=== PATIENT | male | born 1960 ===

== ENCOUNTER 2020-06-15 11:51 | Outpatient (REF) | payer OTHER, SELFPAY | END 2020-06-15 11:52 | disposition home or self-care (01) | LOC: HO.LAB 11:51 | PROVIDERS: Visit Provider Internal Medicine | DX: Z20.822 Contact with and (suspected) exposure to COVID-19 (principal) | CPT/HCPCS: 36415; C9803; U0003; U0005 ==

== ENCOUNTER 2022-07-12 08:20 | Emergency (ER) | payer OTHER, SELFPAY ==
--- NOTE | ~2022-07-12 | XR_ITS ---
EXAMINATION: XR CHEST CLINICAL INFORMATION: Chest pain COMPARISON: 01/22/2015 TECHNIQUE: 2 views of the chest were obtained. FINDINGS: No significant abnormality is noted involving the heart, lungs, mediastinum, bony thorax or soft tissues. XR/XR chest 2V IMPRESSION: Unremarkable examination.
--- NOTE | ~2022-07-12 | CT_ITS ---
EXAMINATION: CT HEAD WITHOUT CONTRAST CLINICAL INFORMATION: Headache COMPARISON: 04/28/2014 TECHNIQUE: Contiguous axial imaging was performed from the skull base to vertex without intravenous administration of contrast. This CT examination was performed using dose optimization techniques as appropriate, variously including the following: *Automated exposure control *Adjustment of mA and/or kV according to patient size (this includes techniques or standardized protocols for targeted exams where dose is matched to indication/reason for exam; i.e. extremities or head) *Use of iterative reconstruction technique DLP: 652 mGy-cm FINDINGS: There is no midline shift. There is no mass effect. There is no hemorrhage. The basal cisterns appear patent. The posterior fossa is grossly within normal limits. There is no extra-axial collection. The kim-white matter is fairly well-preserved. Review of the bone windows does demonstrate suspicious finding. Some mild opacification of left mastoid air cells CT/CT head/brain wo IV con IMPRESSION: Negative acute noncontrast CT of the brain. Some possible mastoid air cell disease on the left
[2022-07-12 08:38] VITALS: BP 154/88; PULSE 85; RESP 16; TEMP 36.8; O2SAT 98; BMI 24.2
--- NOTE | 2022-07-12 08:53 | PC.NURSE ---
61 y/o M pw intermittent headache for a few months. pt states that 3 days ago he lost his vision for a few seconds and then it returned. he states that the headache has been worsening over time and is beginning to radiate to his neck and face. neuros are intact. PERRL. ROADWAY DESIGNER made aware of patient and symptoms and at bedside to assess. pt also states that he has had increased stress d/t his being in the ICU at [facility]. pt is AOX3, VSS at this time. pt in gown, on monitor.
--- NOTE | 2022-07-12 09:07 | ED_ITS ---
HPI - Headache General Chief Complaint: Headache Stated Complaint: Headache/Eye pain Time Seen by Provider: 07/12/22 08:46 Source: patient and university registrar Mode of arrival: ambulatory Limitations: no limitations and language barrier History of Present Illness HPI Narrative: Patient is a 61-year-old male with a history of CAD, diabetes and asthma, cc occipital right-sided headache that started this morning around 0800. It radiates to the right side of the neck and to the right shoulder and is accompanied by nausea, slighty blurry vision in the left eye and midsternal chest discomfort. He states that last night around 1999 he started with sharp pain to the left eye that radiated to the back of the head for about 3 secs and resolved. He also said that his vision went black for a couple of seconds in the left eye which has resolved but feels the vision in that eye is a bit blurry still. He denies recent trauma, speech difficulty, unilateral weakness,loc, vomiting, photosensitivity, confusion, sob, fever, or abd pain. He explained that his has been in the ICU and just got out yesterday and has been under a lot stress. MD elicited complaint: headache Onset (ago): hour(s) Time: 06:00 Onset description: suddenly and while at rest Location: right and occipital Severity: moderate Quality & Timing: throbbing, sharp and pain radiation Exacerbating factors: none Relieving factors: nothing Associated symptoms: nausea and vision loss Treatments prior to arrival: none Related Data Previous Rx's Medication Instructions Recorded gabapentin 100 mg capsule 100 mg PO BEDTIME 90 days #90 caps 09/07/21 bisacodyl 5 mg tablet,delayed 10 mg PO ONCE 1 day #2 tabs 01/26/22 release (Dulcolax (bisacodyl)) blood-glucose meter (FreeStyle #1 ea 01/30/22 Lite Meter kit) blood sugar diagnostic (FreeStyle #50 ea 02/09/22 Test strips) metoprolol succinate 25 mg 25 mg PO DAILY #30 tabs 02/09/22 tablet,extended release 24 hr albuterol sulfate 90 mcg/actuation 2 inh inhalation Q6H PRN shortness 07/06/22 breath activated powder inhaler of breath or wheezing 30 days #1 ea (ProAir RespiClick) fluticasone propionate 115 2 puff inhalation BID 30 days #8 07/06/22 mcg-salmeterol 21 mcg/actuation grams HFA inhaler (Advair HFA) metformin 1,000 mg tablet 1,000 mg PO BID #60 tabs 07/06/22 Allergies Allergy/AdvReac Type Severity Reaction Status Date / Time Penicillins [PENICILLINS] Allergy Unknown UNKNOWN Verified 07/12/22 08:38 shrimp Allergy Unknown UNKNOWN Verified 07/12/22 08:38 Review of Systems Review of Systems: Yes all other systems are reviewed and are negative Constitutional: Constitutional: Denies body ache(s), Denies chills, Denies fever(s), Reports headache(s) and Denies weakness Eyes: Eyes: Reports blurry vision, Reports change in vision, Reports loss of vision (left eye, seconds, last night around 1999), Reports requires corrective lenses, Denies seeing flashes and Denies photophobia ENT: Reports system reviewed and no additional complaints, except as documented, Denies dizziness, Reports headache(s), Denies nasal congestion, Denies nasal discharge and Denies neck pain Cardiovascular: Cardiovascular: Reports chest pain (midsternal), Denies leg edema and Denies dyspnea Respiratory: Respiratory: Reports no additional respiratory complaints, Denies cough and Denies dyspnea Gastrointestinal: Gastrointestinal: Denies abdominal pain, Denies diarrhea, Reports nausea and Denies vomiting Genitourinary: Genitourinary: Denies urinary incontinence Musculoskeletal: Musculoskeletal: Reports no additional musculoskeletal complaints, Denies back pain, Denies arthralgias, Denies joint swelling, Denies neck pain, Denies numbness and Denies tingling Integumentary/Breasts: Skin/Breast: Reports system reviewed and no additional complaints, except as docu and Denies rash Neurologic: Reports system reviewed and no additional complaints, except as documented, Denies Abnormal speech present, Denies dizziness, Reports headache (s), Denies lack of coordination, Reports loss of vision (left eye, seconds, last night around 1999), Denies numbness, Denies tingling and Denies weakness PMFSH Past Medical History Attestation statement: The following information was validated with the patient. Source: old records reviewed and nursing notes reviewed Medical History CAD (coronary artery disease) Diabetes mellitus Mild persistent asthma Poison jorge Surgical History Ear anomaly H/O angioplasty History of lumbar laminectomy S/P correction of deviated nasal septum Family History Family History Mother Asthma Father COVID-19 Social History Social History Housing: Apartment Alcohol intake: former Patient Tobacco Use Status: Never used Tobacco e-Cigarette/Vaping Use: Never Used Second Hand Smoke Exposure: No Advance Directives: No Advance Directives Information Provided: Yes service: No Current occupational status: disabled Cognitive needs: No Hearing needs: No Vision needs: No Physical Exam Vital Signs: Vital Signs: Last Vital Signs Temp 98.2 F 07/12/22 08:38 Pulse 68 07/12/22 12:01 Resp 14 07/12/22 12:01 BP 137/74 07/12/22 12:01 Pulse Ox 99 07/12/22 12:01 O2 Del Method 07/12/22 12:01 BMI result Body Mass Index 24.2 Const: General: cooperative, healthy appearing, comfortable and no acute distress Orientation/consciousness: patient oriented x3 Limitations: no limitations HEENT: Head: Yes normal to inspection and No Temporal artery tenderness present Ears: hearing grossly normal bilaterally and TM's normal bilaterally General nose exam: Normal external nose present Face and sinus: Yes normal facial exam Mouth: Normal oral and palatal mucosa present Throat: Yes posterior oropharynx normal Eyes: Other: IOP 12 bilaterally see charted visual acuity-corrected bilaterally was 20/50 General: appearance normal, both eyes and all related structures Visual Nina: normal visual nina by confrontation Alignment and Position: alignment normal Periorbital: periorbital findings normal Eyelids: Yes eyelids normal Conjunctivae: conjunctivae normal Sclerae: sclerae normal Corneas: corneas normal and fluorescein used (no abrasion or FB) Pupils: Equal, round and reactive pupils present EOM: EOMs intact bilaterally Direct Ophthalmoscopy: normal light reflex, no photophobia and No photophobia Neck: Other: Tenderness on palpation over the right occipit and soft tissue of right neck with no thrill or bruit. no swelling Neck: Yes normal visual inspection, Yes full ROM, Yes no lymphadenopathy and Yes no meningeal signs Chest: Chest palpation & inspection: normal inspection of the chest and normal palpation of entire chest wall Resp: Effort & Inspection: normal respiratory effort Auscultation: clear to auscultation bilaterally Cardio: Rate: regular rate Rhythm: regular rhythm Peripheral pulses: Peripheral pulses 2+ throughout GI: Inspection: Yes normal to inspection Palpation (GI): Soft to palpation and nontender Auscultation: normal bowel sounds Back/Spine/Pelvis: Thoracic/Lumbar Spine: thoracic and lumbar spine normal to inspection Skin: General skin exam: no rashes or lesions noted Neuro: General: patient oriented x3, moves all extremities, no meningeal signs, no focal motor deficits, normal sensation to monofilament and Unable to assess gait Cranial nerves: Yes CN's II-XII intact bilaterally, Yes Equal, round and reactive pupils present, Yes Bilaterally intact EOM present, Yes Nystagmus not present, Yes Normal facial strength present, Yes Midline tongue present and Yes Ability to bilaterally rotate head present Cognition (Neuro): normal cognition Speech: No Abnormal speech present Gait exam (Neuro): Unable to assess gait Motor exam (neuro): 5/5 motor strength present throughout Sensory Exam: Normal double simultaneous stimulation for sensation Pupils: Normal pupillary reactivity/response: bilateral Extrem: General: Yes normal to inspection, Yes no pedal edema and Yes no calf tenderness Medications Administered Discontinued Medications Generic Name Dose Route Start Last Admin Trade Name Freq PRN Reason Stop Dose Admin Fluorescein Sodium 1 strip 07/12/22 10:02 07/12/22 10:24 Fluorescein Sodium Strip EYE-LEFT 07/12/22 10:03 1 strip ONCE ONE Administration Tetracaine HCl 1 drop 07/12/22 10:02 07/12/22 10:24 Tetracaine Hcl/Pf 0.5% Oph Nancy 4 Ml Drops EYE-LEFT 07/12/22 10:03 1 drop ONCE ONE Administration Medical Decision Making Medical Decision Making [facility] Narrative: Pt is a 61 y/o male presenting with complaints of brief vision loss yesterday now with residual blurriness, right sided headache/neck pain, and chest pain. 1. Visual changes-Transient vision loss for 3 seconds yesterday now with reported residual blurriness in left eye. Low concern for retinal detachment, optic nerve impingment, retinopathy, or glaucoma. Visual acuity exam shows corrected eyes 20/50. See eye exam documented. No corneal abrasion/FB, w/ normal IOP and normal visual nina. Advised to follow-up with sales and marketing associate for more thorough examination (has been seen by Matheus in the past). 2: Headache- this patient presents with headache most consistent with tension migraine vs musculoskeletal pain. Normal neuro exam with no focal deficits. Differential diagnosis includes migraine versus tension type headache, less likely meningitis/CARE MANAGEMENT ASSOCIATE infection (no fever, meningeal signs), SAH (no sudden onset SARAH), temporal arteritis unlikely, as is acute angle glaucoma closure glaucoma. However, d/t age will obtain CT head, treat symtomatically. 3. Chest pain - patient presents with chest pain most likely secondary to stress. The differential diagnosis included PE (no clincial findings concerning for DVT, no hypoxia/tachypnea/tachycardia or risk factors), STEMI, NSTEMI (ACS less likely with flat troponin, unchanged EKG) pericarditis, myocarditis, thorac ic aortic dissection (less likely with gradial onset) pneumothorax, pneumonia or other acute infectious process. Will obtain EKG, labs and chest xray. Differential Diagnosis Differential Diagnoses: The differential diagnosis associated with the presentation includes see above Lab Data MDM Lab Attestation statement: I reviewed the patient's lab results. 07/12/22 10:16 07/12/22 10:16 Labs: Lab Results 07/12/22 07/12/22 07/12/22 Range/Units 10:16 10:16 10:16 WBC 3.5 L (4.8-10.8) X10*3/uL RBC 4.27 L (4.60-5.80) X10*6/uL Hgb 13.3 L (14.0-18.0) g/dl Hct 40.2 L (42.0-52.0) % MCV 94.1 (80.0-98.0) fL MCH 31.1 (27.0-33.0) pg MCHC 33.1 (31.0-36.0) g/dl RDW 12.7 (11.0-16.0) % Plt Count 260 (160-400) X10*3/uL MPV 10.0 (9.4-12.4) fL Immature Gran % (Auto) 0.3 (0.0-0.4) % Neut % (Auto) 54.7 (45-73) % Lymph % (Auto) 28.5 (20-40) % [place] % (Auto) 10.5 (2-11) % Eos % (Auto) 4.6 H (0-4) % Baso % (Auto) 1.4 (0-2) % Lymph # (Auto) 1.0 L (1.2-4.9) X10*3/uL [place] # (Auto) 0.4 (0.1-1.2) X10*3/uL Eos # (Auto) 0.2 (0.0-0.4) X10*3/uL Baso # (Auto) 0.1 (0.0-0.2) X10*3/uL Abs Immat Gran (auto) 0.01 (0.00-0.03) X10*3/uL Absolute Neuts (auto) 1.9 L (2.0-8.3) x10*3/uL Absolute Nucleated RBC 0.000 (0.0-0.012) X10*3/uL Nucleated RBC % (auto) 0.0 (0.0-0.2) /100WBC ESR 9 (0-15) MM/HR PT 11.5 (10.0-13.1) SEC INR 1.0 (0.9-1.1) Sodium (135-145) mmol/L Potassium (3.3-5.1) mmol/L Chloride (96-108) mmol/L Carbon Dioxide (22-29) mmol/L Anion Gap (12-20) BUN (9-16) mg/dL Creatinine (0.5-1.4) mg/dL Estim Creat Clear Calc Estimated GFR Random Glucose (60-115) mg/dL Calcium (8.4-10.2) mg/dL Magnesium (1.6-2.6) mg/dL Total Bilirubin (0.0-1.0) mg/dL Direct Bilirubin (0.0-0.5) mg/dL AST (5-37) U/L ALT (0-40) U/L Alkaline Phosphatase (39-117) U/L Troponin I High Sens (<3.5-35.0) ng/L C-Reactive Protein (< or = 0.50) mg/dL Total Protein (6.5-8.0) g/dL Albumin (3.5-5.0) g/dL COVID-19 (CHRISTOPHER) (Negative) COVID-19 Clin Com 07/12/22 07/12/22 07/12/22 Range/Units 10:16 10:16 10:16 WBC (4.8-10.8) X10*3/uL RBC (4.60-5.80) X10*6/uL Hgb (14.0-18.0) g/dl Hct (42.0-52.0) % MCV (80.0-98.0) fL MCH (27.0-33.0) pg MCHC (31.0-36.0) g/dl RDW (11.0-16.0) % Plt Count (160-400) X10*3/uL MPV (9.4-12.4) fL Immature Gran % (Auto) (0.0-0.4) % Neut % (Auto) (45-73) % Lymph % (Auto) (20-40) % [place] % (Auto) (2-11) % Eos % (Auto) (0-4) % Baso % (Auto) (0-2) % Lymph # (Auto) (1.2-4.9) X10*3/uL [place] # (Auto) (0.1-1.2) X10*3/uL Eos # (Auto) (0.0-0.4) X10*3/uL Baso # (Auto) (0.0-0.2) X10*3/uL Abs Immat Gran (auto) (0.00-0.03) X10*3/uL Absolute Neuts (auto) (2.0-8.3) x10*3/uL Absolute Nucleated RBC (0.0-0.012) X10*3/uL Nucleated RBC % (auto) (0.0-0.2) /100WBC ESR (0-15) MM/HR PT (10.0-13.1) SEC INR (0.9-1.1) Sodium 140 (135-145) mmol/L Potassium 4.4 (3.3-5.1) mmol/L Chloride 107 (96-108) mmol/L Carbon Dioxide 26 (22-29) mmol/L Anion Gap 11 L (12-20) BUN 16 (9-16) mg/dL Creatinine 1.00 (0.5-1.4) mg/dL Estim Creat Clear Calc 69.1 Estimated GFR > 60 Random Glucose 184 H (60-115) mg/dL Calcium 9.6 (8.4-10.2) mg/dL Magnesium 1.9 (1.6-2.6) mg/dL Total Bilirubin 0.4 (0.0-1.0) mg/dL Direct Bilirubin < 0.2 (0.0-0.5) mg/dL AST 27 (5-37) U/L ALT 39 (0-40) U/L Alkaline Phosphatase 55 (39-117) U/L Troponin I High Sens < 3.5 (<3.5-35.0) ng/L C-Reactive Protein 0.24 (< or = 0.50) mg/dL Total Protein 6.8 (6.5-8.0) g/dL Albumin 4.2 (3.5-5.0) g/dL COVID-19 (CHRISTOPHER) Negative (Negative) COVID-19 Clin Com See Note Independent Interpretation I performed an independent interpretation of an: EKG, Plain X-Ray and CT Scan Interpretation: I independently reviewed the chest x-ray and a CTA of the head and agree with the radiologist's report I independently reviewed the EKG which shows normal sinus rhythm with rate of 66, normal NV, normal QRS, normal QT, nonspecific ST changes seen on previous EKG January 2015 Radiology Impression Discussion of test interpretation with radiology: I have reviewed the radiologis t's reading. Radiologist Impression: [place] [id number] CT Scan Report Signed Patient: Marco Barrientos MR#: [id number] : 1960 Acct:[id number] Age/Sex: 61 / M ADM Date: 07/12/22 Loc: HO.ED Attending Dr: Ordering Physician: Melani Herrera NP Date of Service: 07/12/22 Procedure(s): CT head/brain wo IV con Accession Number(s): [id number] cc: Melani Herrera NP~ EXAMINATION: CT HEAD WITHOUT CONTRAST CLINICAL INFORMATION: Headache? COMPARISON: 04/28/2014 TECHNIQUE: Contiguous axial imaging was performed from the skull base to vertex without intravenous administration of contrast. This CT examination was performed using dose optimization techniques as appropriate, variously including the following: *Automated exposure control *Adjustment of mA and/or kV according to patient size (this includes techniques or standardized protocols for targeted exams where dose is matched to indication/reason for exam; i.e. extremities or head) *Use of iterative reconstruction technique DLP: 652 mGy-cm FINDINGS: There is no midline shift. There is no mass effect. There is no hemorrhage. The basal cisterns appear patent. The posterior fossa is grossly within normal limits. There is no extra-axial collection. The kim-white matter is fairly well-preserved. Review of the bone windows does demonstrate suspicious finding. Some mild opacification of left mastoid air cells ? CT/CT head/brain wo IV con IMPRESSION: Negative acute noncontrast CT of the brain. Some possible mastoid air cell disease on the left [place] [id number] XRay Report Signed Patient: Marco Barrientos MR#: [id number] : 1960 Acct:[id number] Age/Sex: 61 / M ADM Date: 07/12/22 Loc: .ED Attending Dr: Ordering Physician: Melani Herrera NP Date of Service: 07/12/22 Procedure(s): XR chest 2V Accession Number(s): [id number] cc: Melani Herrera NP~ EXAMINATION: XR CHEST CLINICAL INFORMATION: Chest pain COMPARISON: 01/22/2015 TECHNIQUE: 2 views of the chest were obtained. FINDINGS: No significant abnormality is noted involving the heart, lungs, mediastinum, bony thorax or soft tissues. XR/XR chest 2V IMPRESSION: Unremarkable examination. Discharge Plan Discharge Clinical Impression: Headache, Chest pain, Alteration in vision Patient Disposition: Home, Self-Care Instructions: Chest Pain (DC), Acute Headache (ED) Additional Instructions: Seguimiento con el Dr. Jarvis. Regrese por cualquier s?ntoma que empeore. Tus pruebas aqu? son muy tranquilizadoras. Prescriptions: No Action bisacodyl [Dulcolax (bisacodyl)] 5 mg tablet,delayed release (DR/EC) 10 mg PO ONCE 1 Days Qty: 2 0RF Rx Instructions: take orally as directed prior to colonoscopy (DME) blood-glucose meter [FreeStyle Lite Meter] Kit See Rx Instructions .Route Qty: 1 0RF Rx Instructions: As directed (DME) FreeStyle Test Strip See Rx Instructions .ROUTE .MEDSUPPLY Qty: 50 11RF Rx Instructions: As directed metoprolol succinate 25 mg tablet extended release 24 hr 25 mg PO DAILY Qty: 30 6RF ProAir RespiClick 90 mcg/actuation aerosol powdr breath activated 2 inh inhalation Q6H PRN (Reason: shortness of breath or wheezing) 30 Days Qty: 1 6RF Advair HFA 115-21 mcg/actuation HFA aerosol inhaler 2 puff inhalation BID 30 Days Qty: 8 6RF metformin 1,000 mg tablet 1,000 mg PO BID Qty: 60 6RF gabapentin 100 mg capsule 100 mg PO BEDTIME 90 Days Qty: 90 0RF Referrals: Raul Fajardo [Physician] - 10 days Interventions: ED Discharge Assessment Last Done: 07/12/22 12:57 Discharge Date/Time: 07/12/22 12:57 Print Language: Italian
--- NOTE | 2022-07-12 09:45 | ECG_ITS ---
Test Reason : CHEST PAIN Blood Pressure : / mmHG Vent. Rate : 066 BPM Atrial Rate : 066 BPM P-R Int : 148 ms QRS Dur : 076 ms QT Int : 322 ms P-R-T Axes : 064 049 030 degrees QTc Int : 337 ms Normal sinus rhythm Normal ECG When compared with ECG of 22-JAN-2015 18:16, No significant changes seen Referred By: Melani Baig Electronically Signed By:MAKEDA WATKINS
[2022-07-12 10:22] VITALS: BP 133/70; PULSE 68; RESP 11; O2SAT 100
[2022-07-12] MEDS: Tetracaine HCl/PF 0.5% Oph Sol 4 ML DROPS 1 DROP EYE-LEFT (10:24)
[2022-07-12] MEDS: Fluorescein Sodium STRIP 1 STRIP EYE-LEFT (10:24)
[2022-07-12 10:38] LABS: MANUAL DIFF FLAG NO
[2022-07-12 10:42] LABS: Basophils Absolute Auto 0.1 X10*3/uL (0.0-0.2); Basophils Percent Auto 1.4 % (0-2); Eosinophils Absolute Auto 0.2 X10*3/uL (0.0-0.4); Eosinophils Percent Auto 4.6 % (0-4); Hematocrit 40.2 % (42.0-52.0); Hemoglobin 13.3 g/dl (14.0-18.0); Imm Gran Abs Auto 0.01 X10*3/uL (0.00-0.03); Imm Gran Pct Auto 0.3 % (0.0-0.4); Lymphocytes Percent Auto 28.5 % (20-40); Mean Corpuscular HGB Conc 33.1 g/dl (31.0-36.0); Mean Corpuscular Hemoglobin 31.1 pg (27.0-33.0); Mean Corpuscular Volume 94.1 fL (80.0-98.0); Monocytes Absolute Auto 0.4 X10*3/uL (0.1-1.2); Monocytes Percent Auto 10.5 % (2-11); Neutrophils Absolute Auto 1.9 x10*3/uL (2.0-8.3); Neutrophils Percent Auto 54.7 % (45-73); Platelet Count 260 X10*3/uL (160-400); Red Blood Count 4.27 X10*6/uL (4.60-5.80); Red Cell Distribution Width 12.7 % (11.0-16.0); White Blood Count 3.5 X10*3/uL (4.8-10.8)
[2022-07-12 10:43] LABS: COVID-19 Test Negative (Negative); IDNOW Serial# 16C4AD1C
[2022-07-12 10:48] LABS: Prothrombin Time 11.5 SEC (10.0-13.1)
[2022-07-12 10:58] LABS: Alanine Aminotransferase 39 U/L (0-40); Albumin Level 4.2 g/dL (3.5-5.0); Alkaline Phosphatase 55 U/L (39-117); Anion Gap 11 (12-20); Aspartate Amino Transferase 27 U/L (5-37); Bilirubin Direct < 0.2 mg/dL (0.0-0.5); Bilirubin Total 0.4 mg/dL (0.0-1.0); Blood Urea Nitrogen 16 mg/dL (9-16); C Reactive Protein 0.24 mg/dL (< or = 0.50); Calcium 9.6 mg/dL (8.4-10.2); Carbon Dioxide 26 mmol/L (22-29); Chloride 107 mmol/L (96-108); Creatinine Clr Calc Pharmacy 69.1; Estimated Glomerular Filt Rate > 60; Glucose Random 184 mg/dL (60-115); Magnesium 1.9 mg/dL (1.6-2.6); Potassium 4.4 mmol/L (3.3-5.1); Sodium 140 mmol/L (135-145); Total Protein 6.8 g/dL (6.5-8.0)
[2022-07-12 11:21] LABS: Troponin-I High Sensitivity < 3.5 ng/L (<3.5-35.0)
[2022-07-12 11:38] LABS: Erythrocyte Sedimentation Rate 9 MM/HR (0-15)
[2022-07-12 12:01] VITALS: BP 137/74; PULSE 68; RESP 14; O2SAT 99
== END 2022-07-12 12:57 | disposition home or self-care (01) ==
PROVIDERS: Nurse Practitioner Family; Emergency Provider Emergency Medicine Emergency Medical Services; PCP Internal Medicine
DX: R07.89 Other chest pain (principal); H54.7 Unspecified visual loss; R51.9 Headache, unspecified; Z79.899 Other long term (current) drug therapy; Z20.822 Contact with and (suspected) exposure to COVID-19; Z20.828 Contact with and (suspected) exposure to other viral communicable diseases
CPT/HCPCS: 70450; 71046; 80048; 80076; 83735; 84484; 85025; 85610; 85652; 86140; 87635; 93005; 99284

== ENCOUNTER 2023-02-05 15:43 | Outpatient (AMB) | payer OTHER, SELFPAY ==
[2023-02-05 15:46] VITALS: BP 110/80; PULSE 67; O2SAT 97; BMI 21.4
--- NOTE | 2023-02-05 15:46 | A.OFFPC_ITS ---
Vital Signs 02/05/23 15:46 Height 5 ft 6 in Weight 132 lb 6 oz BMI 21.4 BP 110/80 Blood Pressure Location Lt brachial Position Sitting Pulse 67 Pulse Source Pulse Oximeter Pulse Oximetry (%) 97 Oxygen Delivery Method Room Air Intake Visit Reasons: Physical Exam Orthodontist Assistant Required: No Accompanied by: Self / Same As Patient Allergies Penicillins [PENICILLINS] Allergy (Unknown, Verified 02/05/23 16:20) UNKNOWN shrimp Allergy (Unknown, Verified 02/05/23 16:20) UNKNOWN Medication List - Last Reconciled 02/05/23 by Pratihba Hylton MD albuterol sulfate 90 mcg/actuation (ProAir RespiClick) 2 inhalations inhalation Q6H PRN 30 days bisacodyl (Dulcolax (bisacodyl)) 10 mg (2 x 5 mg) PO ONCE 1 day blood sugar diagnostic (FreeStyle Test strips) As directed blood-glucose meter (FreeStyle Lite Meter kit) As directed fluticasone propion-salmeterol 115-21 mcg/actuation (Advair HFA) 2 puffs inhalation BID 30 days gabapentin 100 mg PO BEDTIME 90 days metformin 1,000 mg PO BID metoprolol succinate ER 25 mg PO DAILY Tobacco use date assessed: 02/05/23 Dental Screening Dental Screen Date: 02/05/23 Did you have a dental visit in the last 12 months?: No Did you have a dental problem in the last 6 months where you did not have access to dental care?: No Was dental information given to patient?: No HPI HPI Comments History of Present Illness Details This is a 62-year-old male with diabetes mellitus type 2 that comes for his physical exam. A1c within goal. Has not had a colonoscopy in over 10 years and will be referred. Was referred last year but he has that and was not able to make it for colonoscopy. No chest pain or shortness of breath. [facility] Medical History CAD (coronary artery disease) Poison jorge Mild persistent asthma Diabetes mellitus Surgical History H/O angioplasty Ear anomaly S/P correction of deviated nasal septum History of lumbar laminectomy Family History Mother Asthma Father COVID-19 Social History Housing: Apartment Alcohol intake: former Patient Tobacco Use Status: Never used Tobacco e-Cigarette/Vaping Use: Never Used Second Hand Smoke Exposure: No service: No Current occupational status: disabled Cognitive needs: No Hearing needs: No Vision needs: No Questionnaire PHQ-9 Over the last 2 weeks, how often have you been bothered by any of the following problems? 1. Little interest or pleasure in doing things: not at all 2. Feeling down, depressed, or hopeless: not at all 3. Trouble falling or staying asleep, or sleeping too much: not at all 4. Feeling tired or having little energy: not at all 5. Poor appetite or overeating: not at all 6. Feeling bad about yourself - or that you are a failure or have let yourself or your family down: not at all 7. Trouble concentrating on things, such as reading the newspaper or watching television: not at all 8. Moving or speaking so slowly that other people could have noticed. Or the opposite - being so fidgety or restless that you have been moving around a lot more than usual: not at all 9. Thoughts that you would be better off or of hurting yourself in some way: not at all Total score: 0 Depression Screening Interpretation: Negative Depression Screening Done: Yes 55601 - PHQ-9 Billing: Yes Source: Developed by Drs. Dick Garcia, Madhuri Elder, Jozef Rutledge and colleagues, with an educational edmund from [employer]. Thrive Questionnaire Date Thrive assessed: 02/05/23 I am a: Patient What is your living situation today?: I have a steady place to live Within the past 12 months, did the food you bought not last and you didn't have the money to get more?: Never true Within the past 12 months, did you worry whether your food would run out before you got money to buy more?: Never true Do you have trouble paying for medicines?: No Do you have trouble getting transportation to medical appointments?: No Do you have trouble paying your heating and electricity bill?: No Do you have trouble taking care of your child, family member or friend?: No Do you have trouble with day-to-day activities such as bathing, preparing meals, shopping, managing finances, etc.?: No Are you currently unemployed and looking for a job?: No Are you interested in more education?: No Please select the resources that you would like help with: None Currently or been in a relationship where the following occur: no concerns reported AUDIT C Alcohol Use Questionnaire (AUDIT-C) 1. How often do you have a drink containing alcohol?: Never 3. How often do you have six or more drinks on one occasion?: Never Total Score: 0 Score Reviewed/Action Taken: No MAGDA-7 AMB Questionnaire MAGDA-7 Date MAGDA - 7 assessed: 02/05/23 Feeling nervous, anxious, or on edge: 0 = Not at all Not being able to stop or control worryin = Not at all Worrying too much about different things: 0 = Not at all Trouble relaxin = Not at all Being so restless that it is hard to sit still: 0 = Not at all Becoming easily annoyed or irritable: 0 = Not at all Feeling afraid as if something awful might happen: 0 = Not at all Total MAGDA-7 score (0-4 normal; 5-9 mild; 10-14 moderate; 15-21 severe): 0 Source: Developed by Drs. Dick Garcia, Madhuri Elder, Jozef Rutledge and colleagues, with an educational edmund from [employer]. MAGDA-7 Assessment Billing MAGDA-7 Assessment Tool: MAGDA-7 Assessment 29043 Review of Systems Const All systems reviewed & are unremarkable except as noted in HPI and below Eyes Reports no additional complaints, Denies change in vision and Denies other visual disturbances Card Denies chest pain at rest, Denies chest pain with activity, Denies edema, Denies irregular heart rhythm, Denies claudication, Denies dyspnea, Denies dyspnea on exertion, Denies orthopnea, Denies paroxysmal nocturnal dyspnea and Denies slow heart rate Resp Denies cough, Denies dyspnea and Denies dyspnea on exertion GI Denies abdominal pain, Denies change in bowel habits, Denies excessive flatus, Denies nausea and Denies vomiting Denies urinary hesitancy, Denies urinary incontinence and Denies urinary urgency Musc Denies abnormal gait, Denies atrophy, Denies deformity and Denies limited range of motion Skin/Breast Denies bleeding lesions, Denies changing lesions and Denies rash Neuro Denies abnormal gait, Denies behavioral changes, Denies confusion and Denies lack of coordination Psych Denies behavioral changes and Denies confusion Physical exam (Primary Care) Vital Signs: Last Vital Signs Pulse 67 02/05/23 15:46 BP 110/80 02/05/23 15:46 Pulse Ox 97 02/05/23 15:46 Oxygen Delivery Method Room Air 02/05/23 15:46 BMI result Body Mass Index 21.4 Tobacco/Smoking Status: Tobacco use Status Tobacco use date assessed 02/05/23 02/05/23 15:53 Patient Tobacco Use Status Never used Tobacco 02/05/23 15:53 e-Cigarette/Vaping Use Never Used 02/05/23 15:53 PHQ-9: PHQ-9 Score PHQ-9: Total score 0 02/05/23 16:32 Depression Screening Interpretation: Negative Thrive Assessment: Date of Thrive Assessment Date Thrive assessed 02/05/23 02/05/23 15:53 Currently or been in a relationship where the following occur: no concerns reported Const General: No confusion Orientation/consciousness: patient oriented x3 and No confusion HENMT Head: Yes normal to inspection, Yes normocephalic and Yes atraumatic Ears: external ears normal Eyes General: appearance normal, both eyes and all related structures Eyelids: Yes eyelids normal Conjunctivae: conjunctivae normal Neck Neck: Yes normal visual inspection and Yes supple Resp Effort & Inspection: normal respiratory effort Auscultation: clear to auscultation bilaterally Cardio Jugular venous distension: no JVD Rate: regular rate Rhythm: regular rhythm Heart sounds: S1 normal heart sound present and S2 normal heart sound present GI Inspection: Yes normal to inspection Palpation (GI): Soft to palpation and nontender Auscultation: normal bowel sounds Skin General skin exam: no rashes or lesions noted Neuro General: patient oriented x3, no focal motor deficits and No confusion Extrem General: Yes full ROM Psych Appearance: grossly normal Office Procedures Flu Questionnaire Does the patient have a severe egg allergy?: No Results AMB Hemoglobin A1c AMB Hemoglobin A1c 6.4 % Last Edit by AMANDA Narayanan on 02/05/23 16:3 2 Immunizations flu vacc [id number] 6mos up(PF) 60 mcg(15 mcgx4)/0.5 mL IM syringe Performing Provider: Pratibha Hylton MD [facility] [place] Documented (not given) by: Jayden Mcdaniel on 02/05/23 15:56 Reason Not Given: Patient Refused Results Reviewed Results Reviewed: Laboratory Last Values Hgb A1c (Clinic) 6.4 % (4.0-6.0) H 02/05/23 16:29 Assessment and Plan Assessment & Plan (1) Physical exam: Code(s): Z00.00 - Encounter for general adult medical examination without abnormal findings Plan: Repeat in a year. (2) Diabetes mellitus: Code(s): E11.9 - Type 2 diabetes mellitus without complications Qualifiers: Diabetes mellitus type: type 2 Diabetes mellitus intermediate project manager insulin use: without intermediate project manager use Diabetes mellitus complication status: without complication Qualified Code(s): E11.9 - Type 2 diabetes mellitus without complications Plan: Continue metformin. A1c goal is equal or less than 7%. Orders: Orders AMB Hemoglobin A1c 02/05/23 E11.9 - Type 2 diabetes mellitus without complications Vitamin D 25-OH Total 02/05/23 E55.9 - Vitamin D deficiency, unspecified Influenza [id number] Immunization 02/05/23 Z23 - Encounter for immunization Lipid Panel 02/05/23 E78.5 - Hyperlipidemia, unspecified Microalbumin, Random (w Creat) 02/05/23 E11.9 - Type 2 diabetes mellitus without complications Comprehensive [place]. Panel Fast 02/05/23 E11.9 - Type 2 diabetes mellitus without complications Referrals Open Access Screening Colonoscopy Referral Z12.11 - Encounter for screening for malignant neoplasm of colon Medications: Refilled metformin 1,000 mg PO BID 60 tabs 6RF E11.9 - Type 2 diabetes mellitus without complications Coding Level of Care Code Est Pt Prev Care 40-64y(62392) Diagnoses Physical exam Z00.00 Type 2 diabetes mellitus without complication, without long-term current use of insulin E11.9 Diabetes mellitus type: type 2 Diabetes mellitus prison insulin use: without intermediate project manager use Diabetes mellitus complication status: without complication Additional Codes MAGDA-7 Assessment Billing - MAGDA-7 Assessment Tool: MAGDA-7 Assessment 41000 ([id number]) Time Spent (min) 33
== END 2023-02-05 16:34 | disposition home or self-care (01) ==
PROVIDERS: Visit Provider Internal Medicine
DX: E11.9 Type 2 diabetes mellitus without complications (principal)
CPT/HCPCS: 83036; 99396

== ENCOUNTER 2023-05-27 06:37 | Day surgery (SDC) | payer OTHER, SELFPAY ==
--- NOTE | 2023-05-23 13:27 | HO.ANESPROP2 ---
Documented by User: Mirtha Noriega NP 05/24/23 09:15 HPI - Anesthesia Eval Consult details Narrative: 62yo M for Colonoscopy [facility] Active Problems Active Problems: All Active Problems (Updated 07/13/22 @ 00:00 by Background Daemon) Physical exam (Acute) Diabetes mellitus (Acute) Mild persistent asthma (Acute) Poison jorge (Acute) CAD (coronary artery disease) (Acute) Past Medical History Medical History CAD (coronary artery disease) Poison jorge Mild persistent asthma Diabetes mellitus Family History Family History Mother Asthma Father COVID-19 Surgical History Surgical History H/O angioplasty Ear anomaly S/P correction of deviated nasal septum History of lumbar laminectomy Social History Social History Housing: Apartment Alcohol intake: former Patient Tobacco Use Status: Never used Tobacco e-Cigarette/Vaping Use: Never Used Second Hand Smoke Exposure: No Advance Directives: No Advance Directives Information Provided: Yes service: No Current occupational status: disabled Cognitive needs: No Hearing needs: No Vision needs: No Meds Allergies Allergy/AdvReac Type Severity Reaction Status Date / Time Penicillins [PENICILLINS] Allergy Unknown UNKNOWN Verified 02/05/23 16:20 shrimp Allergy Unknown UNKNOWN Verified 02/05/23 16:20 Assessment and Plan Assessment Anesthesia Assessment: Chart Reviewed Documented by User: Sofya Heredia MD 05/27/23 07:31 [facility] Past Medical History Medical History CAD (coronary artery disease) Poison jorge Mild persistent asthma Diabetes mellitus Family History Family History Mother Asthma Father COVID-19 Family history of problems with anesthesia: No Surgical History Surgical History H/O angioplasty Ear anomaly S/P correction of deviated nasal septum History of lumbar laminectomy History of Problems with Anesthesia: No Social History Social History Housing: Apartment Alcohol intake: former Patient Tobacco Use Status: Never used Tobacco e-Cigarette/Vaping Use: Never Used Second Hand Smoke Exposure: No Advance Directives: No Advance Directives Information Provided: Yes service: No Current occupational status: disabled Cognitive needs: No Hearing needs: No Vision needs: No Meds Allergies Allergy/AdvReac Type Severity Reaction Status Date / Time Penicillins [PENICILLINS] Allergy Unknown UNKNOWN Verified 02/05/23 16:20 shrimp Allergy Unknown UNKNOWN Verified 02/05/23 16:20 Exam Airway Mallampati Class: II TM Dist: >3cm Neck ROM: Full Heart: rrr Lungs: cta Assessment and Plan Assessment Anesthesia Assessment: Anesthesia Plan Discussed Final Anesthetic Review Family History of Problems with Anesthesia: No History of Problems with Anesthesia: No NPO: Yes ASA Class: II Final Preanesthetic Review: No Changes in Pt Med Stat, Meds/Allgs Chart Reviewed and Consent Obtained/Reviewed Patient Risk: Intermediate Procedure Risk: Low Anesthetic Plan Anesthetic Plan: MAC: Disposition: Standard PACU
[2023-05-23 14:40] VITALS: BMI 21.3
[2023-05-27 07:34] LABS: Glucose, Whole Blood 137 mg/dL (60-115)
[2023-05-27 07:43] VITALS: BP 146/81; PULSE 82; RESP 18; TEMP 37; O2SAT 99; BMI 21.3
--- NOTE | 2023-05-27 07:43 | MHC.SHP ---
Pre-Procedural Eval Section A Date of Service: 05/27/23 The patient is an INPATIENT: No The History & Physical has been completed within 30 days and I have reviewed it.: No Section B Chief Complaint: Colon cancer screening Relevant Family History (Specify if Yes): No Relevant Social History: None Present Medications: see Short Stay Collaborative assessment Medical History: Significant History (CAD (coronary artery disease) Poison jorge Mild persistent asthma Diabetes mellitus) History of Previous Operations: Relevant previous surgery/procedure and date(s) (H/O angioplasty Ear anomaly S/P correction of deviated nasal septum History of lumbar laminectomy) Allergies: Allergies Allergy/AdvReac Type Severity Reaction Status Date / Time Penicillins [PENICILLINS] Allergy Unknown UNKNOWN Verified 02/05/23 16:20 shrimp Allergy Unknown UNKNOWN Verified 02/05/23 16:20 Review of Systems Sugical H&P ROS: Negative: Constitution, Cardiovascular, Respiratory and Gastrointestinal Exam Surgical H&P Exam: Normal: Heart, Normal: Lungs, Normal: Extremities and Normal: Abdomen Plan Diagnosis/Plan: Unchanged I have reviewed the history and physical and performed a pertinent physical examination on my patient. No changes have occurred unless specified. Time Spent With Patient Time: Total time managing care of this patient today ____ minutes.
[2023-05-27] MEDS: Lactated Ringers 1,000 ML 100 ML IVCONT (07:51)
--- NOTE | 2023-05-27 08:33 | P.OP_ITS ---
Operative Note Operative Note Date of Service: 05/27/23 Narrative: COLONOSCOPY TILL CECUM WITH SNARE POLYPECTOMY, SUBMUCOSAL INJECTION, AND HEMOCLIP PLACEMENT Pre-op diagnosis: Colon cancer screening (1st colon) Post-op diagnosis:? Colon polyp, diverticulosis, hemorrhoids Endoscopist:? Tim Ruth MD Anesthesia:?MAC Consent: Indications for the procedure and potential complications of bleeding, perforation, reaction to medications and missed diagnosis were discussed with the patient and informed consent was obtained. Instrument: Olympus CF H 190 L variable stiffness adult colonoscope Monitoring: Vital signs and clinical assessment, intermittent blood pressure monitoring, continuous EKG monitoring, Pulse oximetry and Carbon Dioxide monitoring were done throughout the procedure. Please see anesthesia flowsheet. Colon withdrawl time was 11 minutes. Procedure: The patient was placed in the left lateral decubitis position and pre-procedure medications were administered. After a digital rectal examination of the ano-rectum, the video colonoscope was inserted into the rectum and advanced through the colon to the cecum. The colonoscope was slowly withdrawn in a retrograde panoramic fashion and the colon mucosa was carefully examined including a retroflexed view of the rectum. Findings and interventions are described below. Procedure Difficulty: Without difficulty Findings: Terminal Ileum: Not evaluated Cecum: Normal Ascending Colon: A 15 to 18 mm flat polyp in the proximal ascending colon. Polyp was raised with 6 cc of [place] and removed with a stiff hot snare. Polypectomy site was closed with 1 hemoclip Transverse Colon: Normal Descending Colon: Normal Sigmoid Colon: Moderate diverticulosis Rectum: Normal Ano-rectum: Small internal hemorrhoids Colon preparation: Good after some irrigation [place] Bowel Preparation Scale Right colon; 3 Transverse colon: 3 Left colon; 3 (0 = Unprepared colon segment with mucosa not seen due to solid stool that cannot be cleared. 1 = Portion of mucosa of the colon segment seen, but other areas of the colon segment not well seen due to staining, residual stool and/or opaque liquid. 2 = Minor amount of residual staining, small fragments of stool and/or opaque liquid, but mucosa of colon segment seen well. 3 = Entire mucosa of colon segment seen well with no residual staining, small fragments of stool or opaque liquid) Impression and Post Procedure Diagnosis: Colonoscopy Findings: One medium sized polyp removed Moderate diverticulosis seen in the sigmoid colon Small hemorrhoids on retroflexed exam. Plan: I will send a letter with pathology results Repeat Colonoscopy interval based on path results - in 2-3 years if polyps are adenomatous and 10 years if polyps are hyperplastic. Colon polyps and diverticulosis handouts were given in the discharge area
[2023-05-27 09:05] VITALS: BP 100/59; PULSE 75; RESP 16; TEMP 36.2; O2SAT 96
[2023-05-27 09:20] VITALS: BP 93/61; PULSE 85; RESP 18; O2SAT 98
[2023-05-27 09:35] VITALS: BP 133/75; PULSE 72; RESP 13; TEMP 36.4; O2SAT 100
== END 2023-05-27 10:05 | disposition home or self-care (01) ==
PROVIDERS: PCP Internal Medicine; Visit Provider Internal Medicine Gastroenterology
PROC: 0DJD8ZZ Inspection of Lower Intestinal Tract, Via Natural or Artificial Opening Endoscopic (ICD-10-PCS; CPT 45378; principal; 2023-05-27 08:30)
DX: Z12.11 Encounter for screening for malignant neoplasm of colon (principal); D12.2 Benign neoplasm of ascending colon; K57.30 Diverticulosis of large intestine without perforation or abscess without bleeding; K64.8 Other hemorrhoids; E11.9 Type 2 diabetes mellitus without complications; J45.909 Unspecified asthma, uncomplicated
CPT/HCPCS: 45385; 45381; 82947; 88305; J2704

== ENCOUNTER → 2023-05-27 06:37 | Outpatient (BNV) | payer OTHER, SELFPAY | PROVIDERS: PCP Internal Medicine; Visit Provider Internal Medicine Gastroenterology | DX: Z12.11 Encounter for screening for malignant neoplasm of colon (principal); D12.2 Benign neoplasm of ascending colon; K57.30 Diverticulosis of large intestine without perforation or abscess without bleeding; K64.8 Other hemorrhoids | CPT/HCPCS: 45381; 45385 ==

== ENCOUNTER 2023-06-10 15:29 | Outpatient (AMB) | payer OTHER, SELFPAY ==
--- NOTE | 2023-06-10 15:35 | MHC.PC.OV ---
Vital Signs 06/10/23 15:38 Height 5 ft 6 in Weight 138 lb BMI 22.3 BP 118/70 Blood Pressure Location Lt brachial Position Sitting Intake Visit Reasons: dm Intake Note: Patient here for a follow up DM Cda Teacher Required: No Accompanied by: Self / Same As Patient Allergies Penicillins [PENICILLINS] Allergy (Unknown, Verified 06/10/23 15:50) UNKNOWN shrimp Allergy (Unknown, Verified 06/10/23 15:50) UNKNOWN Medication List - Last Reconciled 06/10/23 by Pratibha Hylton MD albuterol sulfate 90 mcg/actuation (ProAir RespiClick) 2 inhalations inhalation Q6H PRN 30 days blood sugar diagnostic (FreeStyle Test strips) As directed blood-glucose meter (FreeStyle Lite Meter kit) As directed fluticasone propion-salmeterol 115-21 mcg/actuation (Advair HFA) 2 puffs inhalation BID 30 days gabapentin 100 mg PO BEDTIME 90 days metformin 1,000 mg PO BID metoprolol succinate ER 25 mg PO DAILY Tobacco use date assessed: 06/10/23 Dental Screening Dental Screen Date: 06/10/23 Did you have a dental visit in the last 12 months?: No Did you have a dental problem in the last 6 months where you did not have access to dental care?: No Was dental information given to patient?: Patient has dentist HPI HPI Comments History of Present Illness Details This is a 62-year-old male with diabetes mellitus type 2, asthma and CAD that comes today for follow-up on his conditions. A1c within goal. He requires rescue inhaler 1 to 2 times a month. On metoprolol for his coronary artery disease because it decrease mortality. No chest pain or shortness of breath. Had colonoscopy recently with tubular adenoma and next colonoscopy will be in 2 years. [facility] Medical History CAD (coronary artery disease) Poison jorge Mild persistent asthma Diabetes mellitus Surgical History History of colonoscopy H/O angioplasty Ear anomaly S/P correction of deviated nasal septum History of lumbar laminectomy Family History Mother Asthma Father COVID-19 Social History Housing: Apartment Alcohol intake: former Patient Tobacco Use Status: Never used Tobacco e-Cigarette/Vaping Use: Never Used Second Hand Smoke Exposure: No service: No Current occupational status: disabled Cognitive needs: No Hearing needs: No Vision needs: Yes Questionnaire PHQ-9 Over the last 2 weeks, how often have you been bothered by any of the following problems? 1. Little interest or pleasure in doing things: not at all 2. Feeling down, depressed, or hopeless: not at all 3. Trouble falling or staying asleep, or sleeping too much: not at all 4. Feeling tired or having little energy: not at all 5. Poor appetite or overeating: not at all 6. Feeling bad about yourself - or that you are a failure or have let yourself or your family down: not at all 7. Trouble concentrating on things, such as reading the newspaper or watching television: not at all 8. Moving or speaking so slowly that other people could have noticed. Or the opposite - being so fidgety or restless that you have been moving around a lot more than usual: not at all 9. Thoughts that you would be better off or of hurting yourself in some way: not at all Total score: 0 Depression Screening Interpretation: Negative Depression Screening Done: Yes 44657 - PHQ-9 Billing: Yes Source: Developed by Drs. Dick Garcia, Madhuri Elder, Jozef Rutledge and colleagues, with an educational edmund from [employer]. Thrive Questionnaire Date Thrive assessed: 06/10/23 I am a: Patient What is your living situation today?: I have a steady place to live Within the past 12 months, did the food you bought not last and you didn't have the money to get more?: Never true Within the past 12 months, did you worry whether your food would run out before you got money to buy more?: Never true Do you have trouble paying for medicines?: No Do you have trouble getting transportation to medical appointments?: No Do you have trouble paying your heating and electricity bill?: No Do you have trouble taking care of your child, family member or friend?: No Do you have trouble with day-to-day activities such as bathing, preparing meals, shopping, managing finances, etc.?: No Are you currently unemployed and looking for a job?: No Are you interested in more education?: No Please select the resources that you would like help with: None Currently or been in a relationship where the following occur: no concerns reported THRIVE Score: 0 AUDIT C Alcohol Use Questionnaire (AUDIT-C) 1. How often do you have a drink containing alcohol?: Never Total Score: 0 MAGDA-7 AMB Questionnaire MAGDA-7 Date MAGDA - 7 assessed: 06/10/23 Feeling nervous, anxious, or on edge: 0 = Not at all Not being able to stop or control worryin = Not at all Worrying too much about different things: 0 = Not at all Trouble relaxin = Not at all Being so restless that it is hard to sit still: 0 = Not at all Becoming easily annoyed or irritable: 0 = Not at all Feeling afraid as if something awful might happen: 0 = Not at all Total MAGDA-7 score (0-4 normal; 5-9 mild; 10-14 moderate; 15-21 severe): 0 Source: Developed by Drs. Dick Garcia, Madhuri Elder, Jozef Rutledge and colleagues, with an educational emdund from [employer]. MAGDA-7 Assessment Billing MAGDA-7 Assessment Tool: MAGDA-7 Assessment 09107 Review of Systems Const All systems reviewed & are unremarkable except as noted in HPI and below Eyes Reports no additional complaints, Denies change in vision and Denies other visual disturbances Card Denies chest pain at rest, Denies chest pain with activity, Denies edema, Denies irregular heart rhythm, Denies claudication, Denies dyspnea, Denies dyspnea on exertion, Denies orthopnea, Denies paroxysmal nocturnal dyspnea and Denies slow heart rate Resp Denies cough, Denies dyspnea and Denies dyspnea on exertion GI Denies abdominal pain, Denies change in bowel habits, Denies excessive flatus, Denies nausea and Denies vomiting Denies urinary hesitancy, Denies urinary incontinence and Denies urinary urgency Musc Denies abnormal gait, Denies atrophy, Denies deformity and Denies limited range of motion Skin/Breast Denies bleeding lesions, Denies changing lesions and Denies rash Neuro Denies abnormal gait and Denies lack of coordination Physical exam (Primary Care) Vital Signs: Last Vital Signs BP 118/70 06/10/23 15:38 BMI result Body Mass Index 22.3 Tobacco/Smoking Status: Tobacco use Status Tobacco use date assessed 06/10/23 06/10/23 15:41 Patient Tobacco Use Status Never used Tobacco 06/10/23 15:41 e-Cigarette/Vaping Use Never Used 06/10/23 15:41 PHQ-9: PHQ-9 Score PHQ-9: Total score 0 06/10/23 15:41 Depression Screening Interpretation: Negative Thrive Assessment: Date of Thrive Assessment Date Thrive assessed 06/10/23 06/10/23 15:41 Currently or been in a relationship where the following occur: no concerns reported Eyes General: appearance normal, both eyes and all related structures Eyelids: Yes eyelids normal Conjunctivae: conjunctivae normal Neck Neck: Yes normal visual inspection and Yes supple Resp Effort & Inspection: normal respiratory effort Auscultation: clear to auscultation bilaterally Cardio Jugular venous distension: no JVD Rate: regular rate Rhythm: regular rhythm Heart sounds: S1 normal heart sound present and S2 normal heart sound present Extrem General: Yes full ROM Results AMB Hemoglobin A1c AMB Hemoglobin A1c 6.9 % Last Edit by AMANDA Narayanan on 06/10/23 15:41 Results Reviewed Results Reviewed: Laboratory Last Values Hgb A1c (Clinic) 6.9 % (4.0-6.0) H 06/10/23 15:32 Assessment and Plan Assessment & Plan (1) Diabetes mellitus: Code(s): E11.9 - Type 2 diabetes mellitus without complications Qualifiers: Diabetes mellitus type: type 2 Diabetes mellitus halfway insulin use: without remote computer terminal operator use Diabetes mellitus complication status: without complication Qualified Code(s): E11.9 - Type 2 diabetes mellitus without complications Plan: Continue metformin. A1c goal is equal or less than 7% (2) Mild persistent asthma: Code(s): J45.30 - Mild persistent asthma, uncomplicated Qualifiers: Asthma complication type: uncomplicated Qualified Code(s): J45.30 - Mild persistent asthma, uncomplicated Plan: Continue long-acting inhaler. Use rescue inhaler as needed. (3) CAD (coronary artery disease): Code(s): I25.10 - Atherosclerotic heart disease of [place] coronary artery without angina pectoris Qualifiers: Coronary Disease-Associated Artery/Lesion type: [place] artery [place] vs. transplanted heart: [place] heart Associated angina: without angina Qualified Code(s): I25.10 - Atherosclerotic heart disease of [place] coronary artery without angina pectoris Plan: Continue metoprolol. Lipid panel ordered. LDL goal should be less than 70. Orders: Orders AMB Hemoglobin A1c Today E11.9 - Type 2 diabetes mellitus without complications Coding Level of Care Code Est Pt Level 3 (80412) Diagnoses Type 2 diabetes mellitus without complication, without long-term current use of insulin E11.9 Diabetes mellitus type: type 2 Diabetes mellitus halfway insulin use: without halfway use Diabetes mellitus complication status: without complication Mild persistent asthma without complication J45.30 Asthma complication type: uncomplicated Coronary artery disease involving [place] coronary artery of [place] heart without angina pectoris I25.10 Coronary Disease-Associated Artery/Lesion type: [place] artery [place] vs. transplanted heart: [place] heart Associated angina: without angina Additional Codes MAGDA-7 Assessment Billing - MAGDA-7 Assessment Tool: MAGDA-7 Assessment 49516 ([id number]) Time Spent (min) 19
[2023-06-10 15:38] VITALS: BP 118/70; BMI 22.3
== END 2023-06-10 15:57 | disposition home or self-care (01) ==
PROVIDERS: PCP Internal Medicine; Visit Provider Internal Medicine
DX: E11.9 Type 2 diabetes mellitus without complications (principal); J45.30 Mild persistent asthma, uncomplicated; I25.10 Atherosclerotic heart disease of native coronary artery without angina pectoris
CPT/HCPCS: 83036; 99213

== ENCOUNTER 2023-10-22 14:06 | Outpatient (AMB) | payer OTHER, SELFPAY ==
[2023-10-22 14:26] VITALS: BP 112/60; BMI 21.1
--- NOTE | 2023-10-22 14:26 | MHC.PC.OV ---
Vital Signs 10/22/23 14:26 Height 5 ft 6 in Weight 131 lb BMI 21.1 BP 112/60 Blood Pressure Location Lt brachial Position Sitting Intake Visit Reasons: dm Intake Note: Patient here for a follow up DM Funeral Planning Counselor Required: No Accompanied by: Self / Same As Patient Allergies Penicillins [PENICILLINS] Allergy (Unknown, Verified 10/22/23 14:48) UNKNOWN shrimp Allergy (Unknown, Verified 10/22/23 14:48) UNKNOWN Medication List - Last Reconciled 10/22/23 by Pratibha Hylton MD albuterol sulfate 90 mcg/actuation (ProAir RespiClick) 2 inhalations inhalation Q6H PRN 30 days blood sugar diagnostic (FreeStyle Test strips) As directed blood-glucose meter (FreeStyle Lite Meter kit) As directed fluticasone propion-salmeterol 115-21 mcg/actuation (Advair HFA) 2 puffs inhalation BID 30 days gabapentin 100 mg PO BEDTIME 90 days metformin 1,000 mg PO BID metoprolol succinate ER 25 mg PO DAILY Tobacco use date assessed: 06/10/23 Dental Screening Dental Screen Date: 06/10/23 HPI HPI Comments History of Present Illness Details This is a 62-year-old male with diabetes mellitus type 2, mild persistent asthma and anemia that comes today for follow-up on his conditions. A1c within goal. Use rescue inhaler once a month. Hemoglobin will be repeated to check for anemia and he denies any active bleeding. Colonoscopy done 05/2023 showed tubular adenoma next colonoscopy should be in 2-3 years. [facility] Medical History (Updated 10/22/23 @ 15:32 by Pratibha Hylton MD) CAD (coronary artery disease) Poison jorge Mild persistent asthma Diabetes mellitus Surgical History History of colonoscopy H/O angioplasty Ear anomaly S/P correction of deviated nasal septum History of lumbar laminectomy Family History Mother Asthma Father COVID-19 Social History Housing: Apartment Alcohol intake: former Patient Tobacco Use Status: Never used Tobacco e-Cigarette/Vaping Use: Never Used Second Hand Smoke Exposure: No service: No Current occupational status: disabled Cognitive needs: No Hearing needs: No Vision needs: Yes Questionnaire Thrive Questionnaire Date Thrive assessed: 06/10/23 MAGDA-7 AMB Questionnaire MAGDA-7 Date MAGDA - 7 assessed: 06/10/23 Source: Developed by Drs. Dick Garcia, Madhuri Elder, Jozef Rutledge and colleagues, with an educational edmund from [employer]. Review of Systems Const All systems reviewed & are unremarkable except as noted in HPI and below Card Denies chest pain at rest, Denies chest pain with activity, Denies edema, Denies irregular heart rhythm, Denies claudication, Denies dyspnea, Denies dyspnea on exertion, Denies orthopnea, Denies paroxysmal nocturnal dyspnea and Denies slow heart rate Resp Denies cough, Denies dyspnea and Denies dyspnea on exertion Musc Denies atrophy, Denies deformity and Denies limited range of motion Physical exam (Primary Care) Vital Signs: Last Vital Signs BP 112/60 10/22/23 14:26 BMI result Body Mass Index 21.1 Tobacco/Smoking Status: Tobacco use Status Tobacco use date assessed 06/10/23 10/22/23 14:30 Patient Tobacco Use Status Never used Tobacco 10/22/23 14:30 e-Cigarette/Vaping Use Never Used 10/22/23 14:30 Thrive Assessment: Date of Thrive Assessment Date Thrive assessed 06/10/23 10/22/23 14:30 Resp Effort & Inspection: normal respiratory effort Auscultation: clear to auscultation bilaterally Cardio Jugular venous distension: no JVD Rate: regular rate Rhythm: regular rhythm Heart sounds: S1 normal heart sound present and S2 normal heart sound present Extrem General: Yes full ROM Results AMB Hemoglobin A1c AMB Hemoglobin A1c 6.9 % Last Edit by AMANDA Narayanan on 10/22/23 14:33 Results Reviewed Results Reviewed: Laboratory Last Values Hgb A1c (Clinic) 6.9 % (4.0-6.0) H 10/22/23 14:23 Assessment and Plan Assessment & Plan (1) Diabetes mellitus: Code(s): E11.9 - Type 2 diabetes mellitus without complications Qualifiers: Diabetes mellitus type: type 2 Diabetes mellitus termite helper insulin use: without termite helper use Diabetes mellitus complication status: without complication Qualified Code(s): E11.9 - Type 2 diabetes mellitus without complications Plan: Continue metformin. A1c goal is equal or less than 7%. (2) Mild persistent asthma: Code(s): J45.30 - Mild persistent asthma, uncomplicated Qualifiers: Asthma complication type: uncomplicated Qualified Code(s): J45.30 - Mild persistent asthma, uncomplicated Plan: Continue Trelegy. Use rescue inhaler as needed. (3) Normocytic anemia: Code(s): D64.9 - Anemia, unspecified Plan: Repeat hemoglobin. Orders: Orders AMB Hemoglobin A1c Today E11.9 - Type 2 diabetes mellitus without complications Microalbumin, Random (w Creat) Today E11.9 - Type 2 diabetes mellitus without complications Vitamin B12 and Folate Today E53.8 - Deficiency of other specified B group vitamins Complete Blood Count Auto Diff Today D64.9 - Anemia, unspecified IRON PROFILE Today D64.9 - Anemia, unspecified Lipid Panel Today E78.5 - Hyperlipidemia, unspecified Vitamin D 25-OH Total Today E55.9 - Vitamin D deficiency, unspecified Comprehensive [place]. Panel Fast Today E11.9 - Type 2 diabetes mellitus without complications ECG 12 lead EKG Today R07.9 - Chest pain, unspecified Coding Level of Care Code Est Pt Level 3 (03445) Complex EM visit Add On G2211 Diagnoses Type 2 diabetes mellitus without complication, without long-term current use of insulin E11.9 Diabetes mellitus type: type 2 Diabetes mellitus chcf insulin use: without chcf use Diabetes mellitus complication status: without complication Mild persistent asthma without complication J45.30 Asthma complication type: uncomplicated Normocytic anemia D64.9 Time Spent (min) 23
== END 2023-10-22 14:57 | disposition home or self-care (01) ==
PROVIDERS: PCP Internal Medicine; Visit Provider Internal Medicine
DX: E11.9 Type 2 diabetes mellitus without complications (principal); J45.30 Mild persistent asthma, uncomplicated; D64.9 Anemia, unspecified
CPT/HCPCS: 83036; 99213; G2211

== ENCOUNTER → 2023-10-23 09:32 | Outpatient (REF) | payer OTHER, SELFPAY ==
--- NOTE | 2023-10-23 09:38 | ECG_ITS ---
Test Reason : CP Blood Pressure : / mmHG Vent. Rate : 070 BPM Atrial Rate : 070 BPM P-R Int : 142 ms QRS Dur : 080 ms QT Int : 336 ms P-R-T Axes : 068 055 042 degrees QTc Int : 362 ms Normal sinus rhythm Normal ECG When compared with ECG of 12-JUL-2022 10:08, No significant change was found Referred By: Pratibha Hylton Electronically Signed By:Jaguar Arriaza
[2023-10-23 09:51] LABS: MANUAL DIFF FLAG NO
[2023-10-23 10:13] LABS: Basophils Absolute Auto 0.1 X10*3/uL (0.0-0.2); Basophils Percent Auto 1.3 % (0-2); Eosinophils Absolute Auto 0.3 X10*3/uL (0.0-0.4); Hematocrit 44.3 % (42.0-52.0); Hemoglobin 15.1 g/dl (14.0-18.0); Imm Gran Abs Auto 0.02 X10*3/uL (0.00-0.03); Imm Gran Pct Auto 0.4 % (0.0-0.4); Lymphocytes Absolute Auto 1.8 X10*3/uL (1.2-4.9); Lymphocytes Percent Auto 39.6 % (20-40); Mean Corpuscular HGB Conc 34.1 g/dl (31.0-36.0); Mean Corpuscular Hemoglobin 31.4 pg (27.0-33.0); Mean Corpuscular Volume 92.1 fL (80.0-98.0); Mean Platelet Volume 10.1 fL (9.4-12.4); Monocytes Absolute Auto 0.4 X10*3/uL (0.1-1.2); Neutrophils Percent Auto 43.7 % (45-73); Platelet Count 257 X10*3/uL (160-400); Red Blood Count 4.81 X10*6/uL (4.60-5.80); Red Cell Distribution Width 12.5 % (11.0-16.0); White Blood Count 4.7 X10*3/uL (4.8-10.8)
[2023-10-23 11:09] LABS: Alanine Aminotransferase 72 U/L (0-40); Albumin Level 4.3 g/dL (3.5-5.0); Alkaline Phosphatase 75 U/L (39-117); Anion Gap 12 (12-20); Aspartate Amino Transferase 35 U/L (5-37); Bilirubin Total 0.5 mg/dL (0.0-1.0); Blood Urea Nitrogen 16 mg/dL (9-16); Carbon Dioxide 29 mmol/L (22-29); Chloride 104 mmol/L (96-108); Cholesterol 142 mg/dL (<200); Estimated Glomerular Filt Rate > 60; Glucose Fasting 146 mg/dL (60-99); HDL Cholesterol 34 mg/dL (>40); Iron 97 mcg/dL (45-160); LDL Cholesterol Calculated 99 mg/dL (<100); Percent Iron Saturation 34 % (15-50); Potassium 4.2 mmol/L (3.3-5.1); Sodium 141 mmol/L (135-145); Total Iron Binding Capacity 289 mcg/dL (228-428); Total Protein 7.6 g/dL (6.5-8.0); Triglycerides 49 mg/dL (<150); Unsaturated Iron Binding 192 ug/dL
[2023-10-23 11:15] LABS: Creatinine Urine 245.13 mg/dL; Microalbum/Creatinine Ratio Ur 7.7 ug/mg cr (<30)
[2023-10-23 11:30] LABS: Vitamin D 25-OH Total 61.6 ng/mL (>30)
[2023-10-23 11:37] LABS: Folate 12.1 ng/mL (> or = 4.0); Vitamin B12 247 pg/mL (200-900)
== END ==
LOC: HO.CARD 09:32
PROVIDERS: PCP Internal Medicine; Visit Provider Internal Medicine
DX: R07.9 Chest pain, unspecified (principal); E53.8 Deficiency of other specified B group vitamins; E78.5 Hyperlipidemia, unspecified; D64.9 Anemia, unspecified; E55.9 Vitamin D deficiency, unspecified; E11.9 Type 2 diabetes mellitus without complications
CPT/HCPCS: 36415; 80053; 80061; 82043; 82306; 82570; 82607; 82746; 83540; 85025; 93005

== ENCOUNTER → 2023-10-23 09:38 | Outpatient (BNV) | payer OTHER, SELFPAY | PROVIDERS: PCP Internal Medicine; Visit Provider Internal Medicine Cardiovascular Disease | DX: R07.9 Chest pain, unspecified (principal) | CPT/HCPCS: 93010 ==

== ENCOUNTER 2024-02-10 15:35 | Outpatient (AMB) | payer OTHER, SELFPAY ==
--- NOTE | 2024-02-10 15:58 | A.OFFPC_ITS ---
Vital Signs 02/10/24 16:00 Height 5 ft 6 in Weight 129 lb BMI 20.8 BP 118/70 Blood Pressure Location Lt brachial Position Sitting Intake Visit Reasons: Annual Exam Intake Note: Patient here for a Physical Exam Felt Puller Required: No Accompanied by: Self / Same As Patient Allergies Penicillins [PENICILLINS] Allergy (Unknown, Verified 02/10/24 16:17) UNKNOWN shrimp Allergy (Unknown, Verified 02/10/24 16:17) UNKNOWN Medication List - Last Reconciled 02/10/24 by Pratibha Hylton MD albuterol sulfate 90 mcg/actuation (ProAir RespiClick) 2 inhalations inhalation Q6H PRN 30 days blood sugar diagnostic (FreeStyle Test strips) As directed blood-glucose meter (FreeStyle Lite Meter kit) As directed fluticasone propion-salmeterol 115-21 mcg/actuation (Advair HFA) 2 puffs inhalation BID 30 days gabapentin 100 mg PO BEDTIME 90 days metformin 1,000 mg PO BID metoprolol succinate ER 25 mg PO DAILY Tobacco use date assessed: 06/10/23 Fall risk assessment: No Falls in past year Last assessed Fall Risk: 02/10/24 Dental Screening Dental Screen Date: 02/10/24 Did you have a dental visit in the last 12 months?: No Did you have a dental problem in the last 6 months where you did not have access to dental care?: No Was dental information given to patient?: Patient has dentist HPI HPI Comments History of Present Illness Details This is a 63-year-old male with diabetes mellitus type 2 that comes for his physical exam. A1c elevated and I will add Jardiance. Diabetic eye exam was done 2023. LDL not on goal and I will add a statin. Complains of palpitations and wants to be referred to Cardiology. Colonoscopy done 2023. [facility] Medical History (Updated 02/10/24 @ 16:25 by Pratibha Hylton MD) CAD (coronary artery disease) Poison jorge Mild persistent asthma Diabetes mellitus Surgical History History of colonoscopy H/O angioplasty Ear anomaly S/P correction of deviated nasal septum History of lumbar laminectomy Family History Mother Asthma Father COVID-19 Social History Housing: Apartment Alcohol intake: former Patient Tobacco Use Status: Never used Tobacco e-Cigarette/Vaping Use: Never Used Second Hand Smoke Exposure: No service: No Current occupational status: disabled Cognitive needs: No Hearing needs: No Vision needs: Yes Questionnaire PHQ-9 Over the last 2 weeks, how often have you been bothered by any of the following problems? 1. Little interest or pleasure in doing things: not at all 2. Feeling down, depressed, or hopeless: not at all 3. Trouble falling or staying asleep, or sleeping too much: several days 4. Feeling tired or having little energy: not at all 5. Poor appetite or overeating: not at all 6. Feeling bad about yourself - or that you are a failure or have let yourself or your family down: not at all 7. Trouble concentrating on things, such as reading the newspaper or watching t elevision: not at all 8. Moving or speaking so slowly that other people could have noticed. Or the opposite - being so fidgety or restless that you have been moving around a lot more than usual: not at all 9. Thoughts that you would be better off or of hurting yourself in some way: not at all Total score: 1 Depression Screening Interpretation: Negative Depression Screening Done: Yes 33653 - PHQ-9 Billing: Yes Source: Developed by Drs. Dick Garcia, Madhuri Elder, Jozef Rutledge and colleagues, with an educational edmund from [employer]. Thrive Questionnaire Date Thrive assessed: 02/10/24 I am a: Patient What is your living situation today?: I have a steady place to live Within the past 12 months, did the food you bought not last and you didn't have the money to get more?: I choose not to answer this question Within the past 12 months, did you worry whether your food would run out before you got money to buy more?: I choose not to answer this question Do you have trouble paying for medicines?: I choose not to answer this question Do you have trouble getting transportation to medical appointments?: No Do you have trouble paying your heating and electricity bill?: I choose not to answer this question Do you have trouble taking care of your child, family member or friend?: I choose not to answer this question Do you have trouble with day-to-day activities such as bathing, preparing meals, shopping, managing finances, etc.?: Yes Are you currently unemployed and looking for a job?: Yes Are you interested in more education?: I choose not to answer this question Please select the resources that you would like help with: None Currently or been in a relationship where the following occur: I choose not to answer THRIVE Score: 0 AUDIT C Alcohol Use Questionnaire (AUDIT-C) 1. How often do you have a drink containing alcohol?: Never Total Score: 0 Score Reviewed/Action Taken: No MAGDA-7 AMB Questionnaire MAGDA-7 Date MAGDA - 7 assessed: 02/10/24 Feeling nervous, anxious, or on edge: 0 = Not at all Not being able to stop or control worryin = Not at all Worrying too much about different things: 0 = Not at all Trouble relaxin = Not at all Being so restless that it is hard to sit still: 0 = Not at all Becoming easily annoyed or irritable: 0 = Not at all Feeling afraid as if something awful might happen: 0 = Not at all Total MAGDA-7 score (0-4 normal; 5-9 mild; 10-14 moderate; 15-21 severe): 0 Source: Developed by Drs. Dick Garcia, Madhuri Elder, Jozef Rutledge and colleagues, with an educational edmund from [employer]. MAGDA-7 Assessment Billing MAGDA-7 Assessment Tool: MAGDA-7 Assessment 58953 Review of Systems Const All systems reviewed & are unremarkable except as noted in HPI and below Card Denies chest pain at rest, Denies chest pain with activity, Denies edema, Denies irregular heart rhythm, Denies claudication, Denies dyspnea, Denies dyspnea on exertion, Denies orthopnea, Denies paroxysmal nocturnal dyspnea and Denies slow heart rate Resp Denies cough, Denies dyspnea and Denies dyspnea on exertion GI Denies abdominal pain, Denies change in bowel habits, Denies excessive flatus, Denies nausea and Denies vomiting Neuro Denies behavioral changes and Denies lack of coordination Psych Denies behavioral changes Physical exam (Primary Care) Vital Signs: Last Vital Signs BP 118/70 02/10/24 16:00 BMI result Body Mass Index 20.8 Tobacco/Smoking Status: Tobacco use Status Tobacco use date assessed 06/10/23 02/10/24 15:59 Patient Tobacco Use Status Never used Tobacco 02/10/24 15:59 e-Cigarette/Vaping Use Never Used 02/10/24 15:59 PHQ-9: PHQ-9 Score PHQ-9: Total score 1 02/10/24 16:19 Depression Screening Interpretation: Negative Thrive Assessment: Date of Thrive Assessment Date Thrive assessed 02/10/24 02/10/24 16:04 Currently or been in a relationship where the following occur: I choose not to answer HENMT Face and sinus: Yes sinuses nontender Mouth: lip normal Eyes General: appearance normal, both eyes and all related structures Eyelids: Yes eyelids normal Conjunctivae: conjunctivae normal Neck Neck: Yes normal visual inspection and Yes supple Resp Effort & Inspection: normal respiratory effort Auscultation: clear to auscultation bilaterally Cardio Jugular venous distension: no JVD Rate: regular rate Rhythm: regular rhythm Heart sounds: S1 normal heart sound present and S2 normal heart sound present GI Inspection: Yes normal to inspection Palpation (GI): Soft to palpation and nontender Auscultation: normal bowel sounds Skin General skin exam: no rashes or lesions noted Neuro General: no focal motor deficits Extrem General: Yes full ROM Psych Appearance: grossly normal Office Procedures Flu Questionnaire Does the patient have a severe egg allergy?: No Has the patient ever had any past reaction to a flu shot?: Yes Results AMB Hemoglobin A1c AMB Hemoglobin A1c 7.2 % Last Edit by AMANDA Narayanan on 02/10/24 16:0 8 Immunizations Fluarix Triv [id number] (PF) 45 mcg (15 mcg x 3)/0.5 mL IM syringe Performing Provider: Pratibha Hylton MD [place] [facility] [place] [facility] Documented (not given) by: AMANDA Narayanan on 02/10/24 16:04 Reason Not Given: Patient Refused Results Reviewed Results Reviewed: Laboratory Last Values Hgb A1c (Clinic) 7.2 % (4.0-6.0) H 02/10/24 15:58 Coding Level of Care Code Est Pt Level 3 (78510) Est Pt Prev Care 40-64y(15095) Diagnoses Physical exam Z00.00 Type 2 diabetes mellitus without complication, without long-term current use of insulin E11.9 Diabetes mellitus type: type 2 Diabetes mellitus termite helper insulin use: without termite helper use Diabetes mellitus complication status: without complication Palpitations R00.2 Additional Codes MAGDA-7 Assessment Billing - MAGDA-7 Assessment Tool: MAGDA-7 Assessment 53573 ([id number]) Assessment & Plan Assessment & Plan (1) Physical exam: Code(s): Z00.00 - Encounter for general adult medical examination without abnormal f indings Category: Medical Plan: Repeat in a year. (2) Diabetes mellitus: Code(s): E11.9 - Type 2 diabetes mellitus without complications Category: Medical Qualifiers: Diabetes mellitus type: type 2 Diabetes mellitus nursing home insulin use: without nursing home use Diabetes mellitus complication status: without complication Qualified Code(s): E11.9 - Type 2 diabetes mellitus without complications Plan: Continue metformin. Start Jardiance. A1c goal is equal or less than 7%. (3) Palpitations: Code(s): R00.2 - Palpitations Category: Medical Plan: Referred to cardiology. Orders: Orders AMB Hemoglobin A1c Today E11.9 - Type 2 diabetes mellitus without complications Influenza [id number] Immunization Today Z23 - Encounter for immunization IRON PROFILE 4 Months D64.9 - Anemia, unspecified Lipid Panel 4 Months E78.5 - Hyperlipidemia, unspecified Microalbumin, Random (w Creat) 4 Months R80.9 - Proteinuria, unspecified Complete Blood Count Auto Diff 4 Months D64.9 - Anemia, unspecified Comprehensive [place]. Panel Fast 4 Months R00.2 - Palpitations Referrals Cardiology Referral I25.10 - Atherosclerotic heart disease of [place] coronary artery without angina pectoris, R00.2 - Palpitations Medications: New lancets (FreeStyle Lancets) As directed 100 ea 0RF rosuvastatin 10 mg PO BEDTIME 90 days 90 tabs 1RF empagliflozin (Jardiance) 10 mg PO DAILY 90 days 90 tabs 1RF Refilled blood-glucose meter (FreeStyle Lite Meter kit) As directed 1 ea 0RF E11.9 - Type 2 diabetes mellitus without complications blood sugar diagnostic (FreeStyle Test strips) As directed 50 ea 11RF E11.9 - Type 2 diabetes mellitus without complications
[2024-02-10 16:00] VITALS: BP 118/70; BMI 20.8
== END 2024-02-10 16:31 | disposition home or self-care (01) ==
PROVIDERS: PCP Internal Medicine; Visit Provider Internal Medicine
DX: Z00.00 Encounter for general adult medical examination without abnormal findings (principal); E11.9 Type 2 diabetes mellitus without complications; R00.2 Palpitations; Z23 Encounter for immunization

== ENCOUNTER → 2024-02-10 15:35 | Outpatient (BNVA) | payer OTHER, SELFPAY | PROVIDERS: PCP Internal Medicine; Visit Provider Internal Medicine | DX: Z00.01 Encounter for general adult medical examination with abnormal findings (principal); E11.9 Type 2 diabetes mellitus without complications; R00.2 Palpitations | CPT/HCPCS: 83036; 90471; 96127; 99212; 99396 ==

== ENCOUNTER 2024-06-09 08:34 | Outpatient (AMB) | payer OTHER, SELFPAY ==
--- NOTE | 2024-06-09 08:40 | A.OFFVIS_ITS ---
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 Grain Combine Driver Required: Yes Grain Combine Driver Services: Grain Combine Driver Present Grain Combine Driver Name: sameer [id number] Accompanied by: Self / Same As Patient Allergies Penicillins [PENICILLINS] Allergy (Unknown, Verified 02/10/24 16:17) UNKNOWN shrimp Allergy (Unknown, Verified 02/10/24 16:17) UNKNOWN Medication List - Last Reconciled 06/09/24 by Owen Buck MD albuterol sulfate 90 mcg/actuation (ProAir RespiClick) 2 inhalations inhalation Q6H PRN 30 days blood sugar diagnostic (FreeStyle Test strips) As directed blood-glucose meter (FreeStyle Lite Meter kit) As directed empagliflozin (Jardiance) 10 mg PO DAILY 90 days fluticasone propion-salmeterol 115-21 mcg/actuation (Advair HFA) 2 puffs inhalation BID 30 days gabapentin 100 mg PO BEDTIME 90 days lancets (FreeStyle Lancets) As directed metformin 1,000 mg PO BID metoprolol succinate ER 25 mg PO DAILY rosuvastatin 10 mg PO BEDTIME 90 days HPI Comments Details: Marco has been referred for evaluation of palpitations but he states he has actually been having chest pain for the last few days. Patient has diabetes and dyslipidemia and on medications for the same. He states that for the last few days, he has been noticing a discomfort in the chest. 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 Sometimes he is saying left side and other times on the right side. Today, he states he is having about 1/10 chest pain. However, 3 days ago, he was apparently having around 5 to 6/10 intensity chest pain. He is also complaining of headaches extra. Per PCP note, he was actually referred for palpitations. With regard to that, he states he does feel some heart racing every so often but not entirely clear what that is. No documented coronary disease. [facility] Medical History CAD (coronary artery disease) Poison jorge Mild persistent asthma Diabetes mellitus Surgical History History of colonoscopy H/O angioplasty Ear anomaly S/P correction of deviated nasal septum History of lumbar laminectomy Family History Mother Asthma Father COVID-19 Social History Housing: Apartment Alcohol intake: former Patient Tobacco Use Status: Never used Tobacco e-Cigarette/Vaping Use: Never Used Second Hand Smoke Exposure: No service: No Current occupational status: disabled Cognitive needs: No Hearing needs: No Vision needs: Yes Review of Systems Const Denies chills, Denies daytime sleepiness, Denies fatigue, Denies fever(s), Denies poor appetite, Denies snoring, Denies stops breathing during sleep, Denies weakness, Denies weight gain and Denies weight loss Eyes Denies loss of vision ENT Denies dizziness and Denies hearing loss Card Reports chest pain, Denies irregular heart rhythm, Denies claudication, Denies leg edema, Denies lightheadedness, Reports radiating jaw, neck or arm pain, Denies palpitations, Denies dyspnea on exertion and Denies orthopnea Resp Denies cough, Denies excessive phlegm production, Denies dyspnea on exertion, Denies snoring and Denies wheezing GI Denies abdominal pain, Denies hematochezia, Denies change in bowel habits, Denies nausea and Denies vomiting Denies dysuria and Denies urinary frequency Musc Denies arthralgias, Denies muscle weakness, Denies numbness and Denies other Skin/Breast Denies nail changes and Denies rash Neuro Denies Abnormal speech present, Denies dizziness, Denies loss of vision, Denies memory loss, Denies numbness and Denies weakness Psych Denies depression and Denies memory loss Endo Denies fatigue and Denies palpitations Hong/Lymph Denies easy bruising Aller/Immun Denies wheezing Physical Exam Vital Signs: Last Vital Signs Pulse 80 06/09/24 08:41 BP 132/68 06/09/24 08:41 BMI result Body Mass Index 23.6 Const General: comfortable and no acute distress Orientation/consciousness: patient oriented x3 HEENT Other: Unremarkable Head: Yes normal to inspection Neck Neck: Yes normal visual inspection Chest Chest palpation & inspection: normal inspection of the chest Resp Auscultation: clear to auscultation bilaterally Cardio Palpation: normal PMI Heart sounds: S1 normal heart sound present, S2 normal heart sound present, no gallops, no murmurs and no rubs GI Palpation (GI): Soft to palpation Back/Spine/Pelvis Other: unremarkable Skin General skin exam: no rashes or lesions noted Neuro General: patient oriented x3 Speech: No Abnormal speech present Extrem General: Yes normal to inspection Psych Mental Status: mental status grossly normal Office Procedures EKG Details: EKG with underlying sinus rhythm at 80/Min; inferior ST depression and T inversions. Looks different from last EKG. [id number], Complete Assessment & Plan Assessment & Plan (1) Precordial chest pain: Code(s): R07.2 - Precordial pain Category: Medical Plan Patient with diabetes, dyslipidemia, having chest pain for the last 3 days, probable cardiac etiology, abnormal EKG. Needs evaluation for NSTEMI. We will send him to the ER for the same. Obtain cardiac biomarkers and if necessary an echocardiogram. Based on this, might need diagnostic catheterization. Discussed with . Report given to the ER. Coding Level of Care Code New Pt Level 5 (60396) Diagnoses Precordial chest pain R07.2 CPT Codes EKG - CPT: 85021-[id number], Complete ([id number])
[2024-06-09 08:41] VITALS: BP 132/68; PULSE 80; BMI 23.6
== END 2024-06-09 09:18 | disposition home or self-care (01) ==
PROVIDERS: PCP Internal Medicine; Visit Provider Internal Medicine
DX: R07.2 Precordial pain (principal); R94.31 Abnormal electrocardiogram [ECG] [EKG]
CPT/HCPCS: 93010; 93306; 99215

== ENCOUNTER → 2024-06-09 08:34 | Outpatient (BNVA) | payer OTHER, SELFPAY | PROVIDERS: PCP Internal Medicine; Visit Provider Internal Medicine ==

== ENCOUNTER 2024-06-09 09:15 | Emergency (ER) | payer OTHER, SELFPAY ==
[2024-06-09] VITALS (8 sets, daily range): BP systolic 127–168; BP diastolic 60–97; PULSE 64–100; RESP 11–16; TEMP 36.7–37; O2SAT 98–100; BMI 24.2; BMI 24.8
--- NOTE | ~2024-06-09 | XR_ITS ---
EXAMINATION: XR CHEST CLINICAL INFORMATION: chest pain COMPARISON: July 12, 2022 TECHNIQUE: Frontal view of the chest was obtained. FINDINGS: No consolidation, pleural effusion or pneumothorax. No hyperinflation. Cardiomediastinal silhouette is normal in size. Osseous structures are intact. XR/XR chest 1V IMPRESSION: No acute airspace disease. Electronically signed by: Iain Valadez MD 06/09/2024 10:35 AM [facility]
--- NOTE | 2024-06-09 09:18 | ECG_ITS ---
Test Reason : CP Blood Pressure : */* mmHG Vent. Rate : 84 BPM Atrial Rate : 84 BPM P-R Int : 146 ms QRS Dur : 80 ms QT Int : 324 ms P-R-T Axes : 68 52 39 degrees QTcB Int : 382 ms Normal sinus rhythm Nonspecific T wave abnormality Abnormal ECG When compared with ECG of 23-Oct-2023 09:54, Nonspecific T wave abnormality now evident in Inferior leads Referred By: Generic ED Physician Electronically Signed By: Jaguar Arriaza
--- NOTE | 2024-06-09 09:58 | ED_ITS ---
HPI - Chest Pain General Chief Complaint: Chest Pain Stated Complaint: Abnormal EKG - from cardiology Time Seen by Provider: 06/09/24 09:58 History of Present Illness ED Provider: Isacc SHEA narrative: The patient is a 63-year-old male who reports that he may have had some kind of a cardiac event 2 years ago when he was at [facility] His memory is poor however and he can not give me any definite details of his cardiac history. The patient has been experiencing pains in his chest and his neck in his right arm over the last few days. Today he went to his cytogenetic technologist and described his symptoms. He had an EKG that showed possible ischemic changes in the inferior leads. He was sent to the emergency room. By the time he got here he was still having some discomfort but his EKG looked better. He has had no fever, sweats, chills. Related Data Previous Rx's ?Medication ?Instructions ?Recorded gabapentin 100 mg capsule 100 mg PO BEDTIME 90 days #90 caps 09/07/21 albuterol sulfate 90 mcg/actuation 2 inh inhalation Q6H PRN shortness 07/06/22 breath activated powder inhaler of breath or wheezing 30 days #1 ea (ProAir RespiClick) fluticasone propionate 115 2 puff inhalation BID 30 days #8 07/06/22 mcg-salmeterol 21 mcg/actuation grams HFA inhaler (Advair HFA) metformin 1,000 mg tablet 1,000 mg PO BID #60 tabs 11/07/23 metoprolol succinate 25 mg 25 mg PO DAILY #90 tabs 11/07/23 tablet,extended release 24 hr blood sugar diagnostic (FreeStyle #50 ea 02/10/24 Test strips) blood-glucose meter (FreeStyle #1 ea 02/10/24 Lite Meter kit) empagliflozin 10 mg tablet 10 mg PO DAILY 90 days #90 tabs 02/10/24 (Jardiance) lancets 28 gauge (FreeStyle #100 ea 02/10/24 Lancets) rosuvastatin 10 mg tablet 10 mg PO BEDTIME 90 days #90 tabs 02/10/24 Allergies Allergy/AdvReac Type Severity Reaction Status Date / Time Penicillins [PENICILLINS] Allergy Unknown UNKNOWN Verified 06/09/24 09:48 shrimp Allergy Unknown UNKNOWN Verified 06/09/24 09:48 Review of Systems 2 Review of Systems: Yes all other systems are reviewed and are negative [facility] Past Medical History Medical History CAD (coronary artery disease) Poison jorge Mild persistent asthma Diabetes mellitus Surgical History History of colonoscopy H/O angioplasty Ear anomaly S/P correction of deviated nasal septum History of lumbar laminectomy Family History Family History Mother Asthma Father COVID-19 Social History Social History Housing: Apartment Alcohol intake: former Patient Tobacco Use Status: Never used Tobacco Smoked in Last 30 Days: No e-Cigarette/Vaping Use: Never Used Second Hand Smoke Exposure: No Use of substances other than those prescribed or required for medical reasons: No Advance Directives: No Advance Directives Information Provided: Yes Do you have a plan to hurt others: No Plan service: No Current occupational status: disabled Cognitive needs: No Hearing needs: No Vision needs: Yes Physical Exam 2 Vital Signs: Vital Signs: Last Vital Signs Temp 98.3 F 06/09/24 14:19 Pulse 64 06/09/24 14:19 Resp 12 06/09/24 14:19 BP 127/83 06/09/24 14:19 Pulse Ox 100 06/09/24 14:19 O2 Del Method Nasal Cannula 06/09/24 14:19 O2 Flow Rate 2 06/09/24 14:19 BMI result Body Mass Index 24.8 Const: Other: The patient is a slim 63-year-old man. He is a somewhat vague historian. He does not seem in distress. HEENT: Other: Face is symmetrical. Mucous membranes moist Eyes: General: appearance normal, both eyes and all related structures Neck: Neck: Yes full ROM and Yes no JVD Resp: Effort & Inspection: normal respiratory effort Auscultation: clear to auscultation bilaterally Cardio: Rate: regular rate Rhythm: regular rhythm Heart sounds: S1 normal heart sound present and S2 normal heart sound present GI: Other: Abdomen is soft and nontender Skin: Other: Skin is dry and unremarkable Neuro: Other: The patient is awake and alert. He seems reasonably well oriented. He is a somewhat vague historian. Cranial nerves are intact. He moves his extremities symmetrically. No obvious focal deficit. Extrem: Other: No calf swelling or tenderness Medications Administered Discontinued Medications Generic Name Dose Route Start Last Admin Trade Name Shaggy PRN Reason Stop Dose Admin Metoprolol Tartrate 25 mg 06/09/24 10:48 06/09/24 10:51 Metoprolol Tartrate 25 Mg Tablet PO 06/09/24 10:49 25 mg ONCE ONE Administration Protocol Morphine Sulfate 4 mg 06/09/24 10:13 06/09/24 10:54 Morphine Sulfate 4 Mg/Ml Cartridge IVPUSH 06/09/24 10:14 4 mg ONCE ONE Administration Protocol Medical Decision Making Medical Decision Making [facility] Narrative: The patient is a 63-year-old male. It is not entirely clear whether he has a history of coronary disease. He has had some chest and neck symptoms and arm symptoms over the last few days which could potentially be anginal. He was at the cardiology office today and had an EKG that suggested some ST segment depression inferiorly and so he was sent to the emergency room. The patient's EKG here in the emergency room looks less concerning. His troponins are negative. Based on the EKG that was done at the cardiology office he has been started on heparin and will be transferred to [facility] for further evaluation. Lab Data 06/09/24 14:39 06/09/24 12:22 Labs: Lab Results 06/09/24 06/09/24 06/09/24 Range/Units 10:01 12:22 13:05 WBC 4.9 (4.8-10.8) X10*3/uL RBC 4.84 (4.60-5.80) X10*6/uL Hgb 15.0 (14.0-18.0) g/dl Hct 44.9 (42.0-52.0) % MCV 92.8 (80.0-98.0) fL MCH 31.0 (27.0-33.0) pg MCHC 33.4 (31.0-36.0) g/dl RDW 12.5 (11.0-16.0) % Plt Count 246 (160-400) X10*3/uL MPV 10.2 (9.4-12.4) fL Immature Gran % (Auto) 0.2 (0.0-0.4) % Neut % (Auto) 47.0 (45-73) % Lymph % (Auto) 34.6 (20-40) % [place] % (Auto) 11.7 H (2-11) % Eos % (Auto) 5.1 H (0-4) % Baso % (Auto) 1.4 (0-2) % Lymph # (Auto) 1.7 (1.2-4.9) X10*3/uL [place] # (Auto) 0.6 (0.1-1.2) X10*3/uL Eos # (Auto) 0.3 (0.0-0.4) X10*3/uL Baso # (Auto) 0.1 (0.0-0.2) X10*3/uL Abs Immat Gran (auto) 0.01 (0.00-0.03) X10*3/uL Absolute Neuts (auto) 2.3 (2.0-8.3) x10*3/uL Absolute Nucleated RBC 0.000 (0.0-0.012) X10*3/uL Nucleated RBC % (auto) 0.0 (0.0-0.2) /100WBC PT 11.0 (10.9-12.4) SEC INR 0.9 (0.9-1.1) Sodium 143 (135-145) mmol/L Potassium 4.7 (3.3-5.1) mmol/L Chloride 104 (96-108) mmol/L Carbon Dioxide 26 (22-29) mmol/L Anion Gap 18 (12-20) BUN 14 (9-16) mg/dL Creatinine 1.14 (0.5-1.4) mg/dL Estim Creat Clear Calc 52.6 Estimated GFR > 60 Random Glucose 180 H (60-115) mg/dL Calcium 9.0 D (8.4-10.2) mg/dL Magnesium 1.9 (1.6-2.6) mg/dL Total Bilirubin 0.3 (0.0-1.0) mg/dL Direct Bilirubin 0.1 (0.0-0.5) mg/dL AST 36 (5-37) U/L ALT 60 H (0-40) U/L Alkaline Phosphatase 82 (39-117) U/L Troponin I High Sens < 2.7 < 2.7 (<3.5-35.0) ng/L B-Natriuretic Peptide < 10 (<100) pg/mL Total Protein 7.6 (6.5-8.0) g/dL Albumin 4.1 (3.5-5.0) g/dL Influenza Type A (PCR) NEGATIVE (Negative) Influenza Type B (PCR) NEGATIVE (Negative) RSV RNA Qual (PCR) NEGATIVE (Negative) SARS-CoV-2 RNA (RT-PCR) NEGATIVE (Negative) 06/09/24 Range/Units 14:39 WBC 5.1 (4.8-10.8) X10*3/uL RBC 4.66 (4.60-5.80) X10*6/uL Hgb 14.5 (14.0-18.0) g/dl Hct 42.6 (42.0-52.0) % MCV 91.4 (80.0-98.0) fL MCH 31.1 (27.0-33.0) pg MCHC 34.0 (31.0-36.0) g/dl RDW 12.4 (11.0-16.0) % Plt Count 212 (160-400) X10*3/uL MPV 9.7 (9.4-12.4) fL Immature Gran % (Auto) (0.0-0.4) % Neut % (Auto) (45-73) % Lymph % (Auto) (20-40) % [place] % (Auto) (2-11) % Eos % (Auto) (0-4) % Baso % (Auto) (0-2) % Lymph # (Auto) (1.2-4.9) X10*3/uL [place] # (Auto) (0.1-1.2) X10*3/uL Eos # (Auto) (0.0-0.4) X10*3/uL Baso # (Auto) (0.0-0.2) X10*3/uL Abs Immat Gran (auto) (0.00-0.03) X10*3/uL Absolute Neuts (auto) (2.0-8.3) x10*3/uL Absolute Nucleated RBC 0.000 (0.0-0.012) X10*3/uL Nucleated RBC % (auto) 0.0 (0.0-0.2) /100WBC PT (10.9-12.4) SEC INR (0.9-1.1) Sodium (135-145) mmol/L Potassium (3.3-5.1) mmol/L Chloride (96-108) mmol/L Carbon Dioxide (22-29) mmol/L Anion Gap (12-20) BUN (9-16) mg/dL Creatinine (0.5-1.4) mg/dL Estim Creat Clear Calc Estimated GFR Random Glucose (60-115) mg/dL Calcium (8.4-10.2) mg/dL Magnesium (1.6-2.6) mg/dL Total Bilirubin (0.0-1.0) mg/dL Direct Bilirubin (0.0-0.5) mg/dL AST (5-37) U/L ALT (0-40) U/L Alkaline Phosphatase (39-117) U/L Troponin I High Sens (<3.5-35.0) ng/L B-Natriuretic Peptide (<100) pg/mL Total Protein (6.5-8.0) g/dL Albumin (3.5-5.0) g/dL Influenza Type A (PCR) (Negative) Influenza Type B (PCR) (Negative) RSV RNA Qual (PCR) (Negative) SARS-CoV-2 RNA (RT-PCR) (Negative) Discharge Plan Discharge Clinical Impression: Chest pain, Abnormal ECG Patient Disposition: [facility] Transfer Details: TO [facility] MM5 RM 22 Prescriptions: No Action metformin 1,000 mg tablet 1,000 mg PO BID Qty: 60 2RF metoprolol succinate 25 mg tablet extended release 24 hr 25 mg PO DAILY Qty: 90 0RF ProAir RespiClick 90 mcg/actuation aerosol powdr breath activated 2 inh inhalation Q6H PRN (Reason: shortness of breath or wheezing) 30 Days Qty: 1 6RF Advair HFA 115-21 mcg/actuation HFA aerosol inhaler 2 puff inhalation BID 30 Days Qty: 8 6RF gabapentin 100 mg capsule 100 mg PO BEDTIME 90 Days Qty: 90 0RF rosuvastatin 10 mg tablet 10 mg PO BEDTIME 90 Days Qty: 90 1RF Jardiance 10 mg tablet 10 mg PO DAILY 90 Days Qty: 90 1RF (DME) blood-glucose meter [FreeStyle Lite Meter] Kit See Rx Instructions .Route Qty: 1 0RF Rx Instructions: As directed (DME) FreeStyle Test Strip See Rx Instructions .ROUTE .MEDSUPPLY Qty: 50 11RF Rx Instructions: As directed (DME) lancets [FreeStyle Lancets] 28 gauge misc See Rx Instructions .Route Qty: 100 0RF Rx Instructions: As directed Referrals: Pratibha Springer MD [Primary Care Provider] - Print Language: Solomon Islander
[2024-06-09 10:09] LABS: MANUAL DIFF FLAG NO
--- NOTE | 2024-06-09 10:12 | MHC.EDTECH ---
Patient came from cardiology department. Blood was drawn and waiting for the result, hourly round and vitals completed. Patient resting quietly in the bed within call abel in his reach.
[2024-06-09 10:13] LABS: Basophils Absolute Auto 0.1 X10*3/uL (0.0-0.2); Basophils Percent Auto 1.4 % (0-2); Eosinophils Absolute Auto 0.3 X10*3/uL (0.0-0.4); Eosinophils Percent Auto 5.1 % (0-4); Hematocrit 44.9 % (42.0-52.0); Imm Gran Abs Auto 0.01 X10*3/uL (0.00-0.03); Imm Gran Pct Auto 0.2 % (0.0-0.4); Lymphocytes Absolute Auto 1.7 X10*3/uL (1.2-4.9); Lymphocytes Percent Auto 34.6 % (20-40); Mean Corpuscular HGB Conc 33.4 g/dl (31.0-36.0); Mean Corpuscular Volume 92.8 fL (80.0-98.0); Mean Platelet Volume 10.2 fL (9.4-12.4); Monocytes Absolute Auto 0.6 X10*3/uL (0.1-1.2); Monocytes Percent Auto 11.7 % (2-11); Neutrophils Absolute Auto 2.3 x10*3/uL (2.0-8.3); Platelet Count 246 X10*3/uL (160-400); Red Blood Count 4.84 X10*6/uL (4.60-5.80); Red Cell Distribution Width 12.5 % (11.0-16.0); White Blood Count 4.9 X10*3/uL (4.8-10.8)
[2024-06-09 10:18] LABS: INTERNATIONAL NORM RATIO 0.9 (0.9-1.1)
[2024-06-09 10:30] LABS: B Type Natriuretic Peptide < 10 pg/mL (<100)
[2024-06-09 10:34] LABS: Troponin-I High Sensitivity < 2.7 ng/L (<3.5-35.0)
[2024-06-09] MEDS: Metoprolol Tartrate 25 MG TABLET PO (10:51)
[2024-06-09] MEDS: Morphine Sulfate 4 MG/ML CARTRIDGE IVPUSH (10:54)
--- NOTE | 2024-06-09 10:58 | ECG_ITS ---
Test Reason : ACTIVE CHEST PAIN Blood Pressure : */* mmHG Vent. Rate : 114 BPM Atrial Rate : 114 BPM P-R Int : 154 ms QRS Dur : 74 ms QT Int : 300 ms P-R-T Axes : 69 31 191 degrees QTcB Int : 413 ms Sinus tachycardia Possible Left atrial enlargement Nonspecific ST and T wave abnormality Abnormal ECG When compared with ECG of 09-Jun-2024 09:22, nonspecific ST-T changes Referred By: Anitra Gomez Electronically Signed By: Jaguar Arriaza
[2024-06-09 11:03] LABS: Influenza A PCR NEGATIVE (Negative); Influenza B PCR NEGATIVE (Negative); Resp Syncy Virus RNA Qual PCR NEGATIVE (Negative); SARS COV2 PCR INHOUSE NEGATIVE (Negative)
--- NOTE | 2024-06-09 11:10 | PC.NURSE ---
PATIENT WITH INCREASE CHEST PRESSURE ON THE RIGHT SIDE OF CHEST ONLY, HR WAS 155 AT THE TIME AND BLOOD PRESSURE WAS 156/81
--- NOTE | 2024-06-09 11:47 | P.CONCA_ITS ---
History of Present Illness History of Present Illness Date of Service: 06/09/24 Requesting physician: Nick Dexter Chief complaint: Unstable angina Narrative: 63-year-old gentleman with background history of diabetes, asthma and hypertension presenting for chest discomfort. He said over the last couple of days he has been experiencing chest pains. He is quite vague about the symptoms and is describing chest discomfort in the right side of the chest as well as central chest tightness. He came to the office for assessment and was seen by Dr. Buck. While in the office he was complaining of pressure-like feeling in his chest and ECG was performed. ECG showed inferior ST depressions and lateral subtle depressions. He was sent to the emergency department for further assessment. His 1st troponin is negative. In the ER he is denying any significant chest discomfort. His EKG has normalized. Blood pressure is mildly elevated currently. He is allergic to penicillin and shrimp. Hemoglobin A1c 7.2. BNP less than 10. PMFSH Past Medical History Medical History CAD (coronary artery disease) Poison jorge Mild persistent asthma Diabetes mellitus Family History Family History Mother Asthma Father COVID-19 Surgical History Surgical History History of colonoscopy H/O angioplasty Ear anomaly S/P correction of deviated nasal septum History of lumbar laminectomy Social History Social History Housing: Apartment Alcohol intake: former Patient Tobacco Use Status: Never used Tobacco Smoked in Last 30 Days: No e-Cigarette/Vaping Use: Never Used Second Hand Smoke Exposure: No Use of substances other than those prescribed or required for medical reasons: No Advance Directives: No Advance Directives Information Provided: Yes Do you have a plan to hurt others: No Plan service: No Current occupational status: disabled Cognitive needs: No Hearing needs: No Vision needs: Yes Meds Allergies Allergy/AdvReac Type Severity Reaction Status Date / Time Penicillins [PENICILLINS] Allergy Unknown UNKNOWN Verified 06/09/24 09:48 shrimp Allergy Unknown UNKNOWN Verified 06/09/24 09:48 Physical Exam 2 Vital Signs: Vital Signs: Last Vital Signs Temp 98.1 F 06/09/24 10:00 Pulse 93 06/09/24 11:12 Resp 11 L 06/09/24 11:12 BP 148/87 H 06/09/24 11:12 Pulse Ox 99 06/09/24 11:12 O2 Del Method Nasal Cannula 06/09/24 11:12 O2 Flow Rate 2 06/09/24 11:12 BMI result Body Mass Index 24.2 GENERAL APPEARANCE: in no acute distress, pleasant. NECK: no carotid bruit, no jugular venous distention. SKIN: no suspicious lesions, warm and dry. HEART: no murmurs, regular rate and rhythm. LUNGS: clear to auscultation bilaterally. ABDOMEN: soft, nontender. EXTREMITIES: no edema. PERIPHERAL PULSES: equal. NEUROLOGIC: No gross deficits, AAO X 3 Objective Labs and Meds 06/09/24 10:01 06/09/24 10:01 Lab results: Laboratory Results - last 24 hr 06/09/24 10:01 WBC 4.9 RBC 4.84 Hgb 15.0 Hct 44.9 MCV 92.8 MCH 31.0 MCHC 33.4 RDW 12.5 Plt Count 246 MPV 10.2 Immature Gran % (Auto) 0.2 Neut % (Auto) 47.0 Lymph % (Auto) 34.6 [place] % (Auto) 11.7 H Eos % (Auto) 5.1 H Baso % (Auto) 1.4 Lymph # (Auto) 1.7 [place] # (Auto) 0.6 Eos # (Auto) 0.3 Baso # (Auto) 0.1 Abs Immat Gran (auto) 0.01 Absolute Neuts (auto) 2.3 Absolute Nucleated RBC 0.000 Nucleated RBC % (auto) 0.0 PT 11.0 INR 0.9 Troponin I High Sens < 2.7 B-Natriuretic Peptide < 10 Influenza Type A (PCR) NEGATIVE Influenza Type B (PCR) NEGATIVE RSV RNA Qual (PCR) NEGATIVE SARS-CoV-2 RNA (RT-PCR) NEGATIVE Imaging Radiologist's impression: Impressions Chest X-Ray 06/09/24 09:59 IMPRESSION: No acute airspace disease. Electronically signed by: Iain Valadez MD 06/09/2024 10:35 AM [facility] Assessment and Plan (1) Unstable angina: Status: Acute Plan 63-year-old gentleman presenting with chest discomfort to outpatient clinic with inferior ST depressions. These changes were dynamic and improved in the emergency department. Blood pressure is mildly elevated. Aspirin and high-intensity statin therapy. Change Toprol to metoprolol tartrate 25 mg twice a day. I would avoid nitroglycerin because he is complaining of some headache. Add amlodipine 2.5 mg daily. Start him on heparin drip. We will check echocardiogram to assess for any wall motion abnormality. I have arranged the transfer at [facility] and he will be transferred as the bed becomes available. In the meantime he should not get any solid food and can get some clear liquids if he wishes. Thank you for allowing me to participate in the care of your patient. Please feel free to contact me if you have any questions. Procedures Date of Service Date of Service: 06/09/24
[2024-06-09 13:07] LABS: Alanine Aminotransferase 60 U/L (0-40); Albumin Level 4.1 g/dL (3.5-5.0); Alkaline Phosphatase 82 U/L (39-117); Anion Gap 18 (12-20); Aspartate Amino Transferase 36 U/L (5-37); Bilirubin Direct 0.1 mg/dL (0.0-0.5); Bilirubin Total 0.3 mg/dL (0.0-1.0); Blood Urea Nitrogen 14 mg/dL (9-16); Carbon Dioxide 26 mmol/L (22-29); Chloride 104 mmol/L (96-108); Creatinine Clr Calc Pharmacy 52.6; Estimated Glomerular Filt Rate > 60; Glucose Random 180 mg/dL (60-115); Magnesium 1.9 mg/dL (1.6-2.6); Potassium 4.7 mmol/L (3.3-5.1); Sodium 143 mmol/L (135-145); Total Protein 7.6 g/dL (6.5-8.0)
[2024-06-09 13:40] LABS: Troponin-I High Sensitivity < 2.7 ng/L (<3.5-35.0)
--- NOTE | 2024-06-09 14:00 | CA_ITS ---
Transthoracic Echocardiogram Patient (Last, First, Middle): Marco Barrientos A Gender: Male Date of : 1960 Age: 63 Procedure Date: 06/09/2024 Procedure Type: Transthoracic Echocardiogram Location: ER Height: 152.4 cm Weight: 63.5 kg BSA: 1.60 m2 Heart Rate: 90 bpm BP: 148 / 87 mmHg Agricultural Research Technician: Referring MD: Jaguar Arriaza MD Symptoms: CP Study Quality: Fair ECG Rhythm: Sinus Conclusions: - Normal left ventricular cavity size. There is normal left ventricular wall thickness. The left ventricular systolic function is hyperdynamic. The visually estimated ejection fraction is >70%. - Normal right ventricular cavity size and systolic function. - There is no evidence of regional wall motion abnormalities. Findings Left Ventricle Normal left ventricular cavity size. There is normal left ventricular wall thickness. The left ventricular systolic function is hyperdynamic. The visually estimated ejection fraction is >70%. There is no evidence of regional wall motion abnormalities. Diastolic function is normal for age. Right Ventricle Normal right ventricular cavity size and systolic function. Atria The left atrium is normal in size. The right atrium is normal in size. Aortic Valve The aortic valve structure and function is likely normal. There is no aortic valve stenosis. There is no aortic valve regurgitation. Mitral Valve The mitral valve appears normal. There is trace mitral valve regurgitation. There is no mitral valve stenosis. Pulmonic Valve The pulmonic valve is normal. There is no pulmonic valve regurgitation. Tricuspid Valve Normal tricuspid valve structure. There is no tricuspid valve regurgitation. Tricuspid regurgitation envelope is inadequate for calculation of right ventricular systolic pressure. Normal right atrial pressure. Great Vessels All visible segments of the aorta are normal in size. The visualized portions of the pulmonary artery and branches are normal. Venous The inferior vena cava is normal in size and collapses greater than 50% with inspiration. Pericardium/Pleural There is no evidence of pericardial effusion. Prior Study Comparison No prior study available for comparison. Measurements 2D Linear Measurements IVSd: 0.93 0.6-0.9/0.6-1.0 cm LVIDd: 3.82 3.9-5.3/4.2-5.9 cm LVIDd Index: 2.39 2.4-3.2/2.2-3.1 cm/m2 LVIDs: 2.21 2.0-3.6 cm LVPWd: 0.80 0.7-1.1 cm LA Diam: 2.90 2.7-3.8/3.0-4.0 cm LAIDs Index: 1.81 1.5-2.3 cm/m2 LV Mass: 119.53 67-162/88-224 g LV Mass Index: 74.71 43-95/49-115 g/m2 LVOT Diam: 1.90 3.0+(-)1.3 cm Mitral Valve MV Pk E: 0.72 MV PK A: 0.97 MV Decel Time: 128.00 E/A: 0.70 E'Lateral: 10.00 E'Medial: 7.07 E/E' Med: 10.20 E/E' Lat: 7.20 PHT: 38.00 MVA PHT: 5.79 Decel [place]: 5.61 Aortic Valve AoV Pk Juan: 1.54 AoV Mn Juan: 0.95 AoV VTI: 0.27 AoV Pk Grad: 9.00 Aov Mn Grad: 4.00 YAZ Cont.VTI: 1.95 LVOT LVOT Pk Juan: 1.15 LVOT Mn Juan: 0.78 LVOT VTI: 0.19 LVOT Pk Grad: 5.00 LVOT Mn Grad: 3.00 LVOT Diam: 1.90 LVOT Area: 2.84 Diastolic Function MV Pk E: 0.72 MV Pk A: 0.97 E/A: 0.70 E'Medial: 7.07 E/E' Med: 10.20 E' Laterial: 10.00 E/E' Lat: 7.20 Right Ventricle TAPSE (mm): 24.00 TVS' Juan: 15.10 Tricuspid Valve TR Pk Juan: 1.55 TR Pk Grad: 10.00 Great Vessels Aorta Sinus of Valsalva: 2.90 2.0-3.5 cm Ao Asc: 2.60 2.1-3.4 cm Pulmonary Valve PV Pk Juan: 1.26 Peak PV Grad: 6.00 Updated in Other Vendor System with Status of Final Jaguar Arriaza MD electronically signed on 06/09/2024 12:37:42 PM with status of Final
[2024-06-09] MEDS: Heparin Sodium,Porcine 5,000 UNIT/ML VIAL 3700 UNIT IVPUSH (14:42)
[2024-06-09 14:44] LABS: Hematocrit 42.6 % (42.0-52.0); Hemoglobin 14.5 g/dl (14.0-18.0); Mean Corpuscular Hemoglobin 31.1 pg (27.0-33.0); Mean Corpuscular Volume 91.4 fL (80.0-98.0); Mean Platelet Volume 9.7 fL (9.4-12.4); Platelet Count 212 X10*3/uL (160-400); Red Blood Count 4.66 X10*6/uL (4.60-5.80); Red Cell Distribution Width 12.4 % (11.0-16.0); White Blood Count 5.1 X10*3/uL (4.8-10.8)
[2024-06-09] MEDS: Heparin Sodium,Porcine/1/2NS 25,000 UNIT/250 ML IV.SOLN 7.63 UNIT IVCONT (14:47)
[2024-06-09 14:53] LABS: INTERNATIONAL NORM RATIO 0.9 (0.9-1.1)
[2024-06-09 14:55] LABS: PTT Heparin Drip 27.4 SEC (53-77.9)
--- NOTE | 2024-06-09 15:06 | PC.NURSE ---
Per attending MD, PTT was drawn but not resulted yet and decision was made to start the Heparin drip.
== END 2024-06-09 15:21 | disposition short-term general hospital (02) ==
PROVIDERS: Emergency Provider Emergency Medicine; PCP Internal Medicine
DX: R07.89 Other chest pain (principal); M54.2 Cervicalgia; M79.601 Pain in right arm; R94.31 Abnormal electrocardiogram [ECG] [EKG]; R06.02 Shortness of breath; I25.10 Atherosclerotic heart disease of native coronary artery without angina pectoris; Z03.818 Encounter for observation for suspected exposure to other biological agents ruled out; Z79.899 Other long term (current) drug therapy
CPT/HCPCS: 0241U; 36415; 71045; 80048; 80076; 83735; 83880; 84484; 85025; 85027; 85610; 85730; 93005; 93306; 96374; 96375; 99212; 99285; J1644; J2270

== ENCOUNTER → 2024-06-09 09:59 | Outpatient (BNV) | payer OTHER, SELFPAY | PROVIDERS: Emergency Provider Emergency Medicine; PCP Internal Medicine; Visit Provider Radiology Diagnostic Radiology | DX: R07.9 Chest pain, unspecified (principal) | CPT/HCPCS: 71045 ==

== ENCOUNTER → 2024-06-09 10:16 | Outpatient (BNV) | payer OTHER, SELFPAY | PROVIDERS: Emergency Provider Emergency Medicine; PCP Internal Medicine; Visit Provider Internal Medicine Cardiovascular Disease | DX: I20.0 Unstable angina (principal) | CPT/HCPCS: 99284 ==

== ENCOUNTER 2024-07-02 12:39 | Outpatient (AMB) | payer OTHER, SELFPAY ==
[2024-07-02 12:43] VITALS: BP 124/86; PULSE 73; O2SAT 98; BMI 23.8
--- NOTE | 2024-07-02 12:43 | MHC.PC.OV ---
Vital Signs 07/02/24 12:43 Height 5 ft 3 in Weight 134 lb 8 oz BMI 23.8 BP 124/86 Blood Pressure Location Lt brachial Position Sitting Pulse 73 Pulse Source Pulse Oximeter Pulse Oximetry (%) 98 Oxygen Delivery Method Room Air Intake Visit Reasons: DM Production Control Coordinator Required: Yes Production Control Coordinator Language: Vertical Contour Band Saw Operator Name: Pratibha Hylton MD Information Interpreted: non-clinical & clinical Accompanied by: Self / Same As Patient Allergies Penicillins [PENICILLINS] Allergy (Unknown, Verified 07/02/24 12:54) UNKNOWN shrimp Allergy (Unknown, Verified 07/02/24 12:54) UNKNOWN Medication List - Last Reconciled 07/02/24 by Pratibha Hylton MD albuterol sulfate 90 mcg/actuation (ProAir RespiClick) 2 inhalations inhalation Q6H PRN 30 days blood sugar diagnostic (FreeStyle Test strips) As directed blood-glucose meter (FreeStyle Lite Meter kit) As directed empagliflozin (Jardiance) 10 mg PO DAILY 90 days fluticasone propion-salmeterol 115-21 mcg/actuation (Advair HFA) 2 puffs inhalation BID 30 days gabapentin 100 mg PO BEDTIME 90 days lancets (FreeStyle Lancets) As directed metformin 1,000 mg PO BID metoprolol succinate ER 25 mg PO DAILY rosuvastatin 10 mg PO BEDTIME 90 days ticagrelor (Brilinta) mg PO ONCE Tobacco use date assessed: 07/02/24 Fall risk assessment: No Falls in past year Last assessed Fall Risk: 07/02/24 Dental Screening Dental Screen Date: 07/02/24 Did you have a dental visit in the last 12 months?: No Did you have a dental problem in the last 6 months where you did not have access to dental care?: No Was dental information given to patient?: No HPI HPI Comments History of Present Illness Details The patient is a 63-year-old male presenting with a follow-up for diabetes management and post-surgical evaluation post coronary stent placement. Recently hospitalized due to unstable angina going straight to cardiac catheterization at [facility]. The patient was diagnosed with Type 2 Diabetes Mellitus, which is managed with Metformin. A1c elevated today and I will increase Jardiance. Recently, the patient experienced an NSTEMI, leading to a cardiac procedure on June 09, which involved stent placement. Post-surgery, the patient reported controlled chest pain and underwent cardiac evaluation, including an electrocardiogram and echocardiogram, with results indicating no acute issues. After discharge, the patient contracted COVID-19 but recovered within a few days. The patient's chronic conditions include hypertension and dyslipidemia, controlled with Metoprolol and Rosuvastatin, respectively. His asthma is managed with medication, and his blood glucose levels are reportedly within the target range. The patient has a history of coronary artery disease, and recent management includes the addition of Brilinta. The patient follows a medication regimen including Gabapentin for neuropathy, and he does not consume alcohol or tobacco. [facility] Medical History CAD (coronary artery disease) Poison jorge Mild persistent asthma Diabetes mellitus Surgical History History of colonoscopy H/O angioplasty Ear anomaly S/P correction of deviated nasal septum History of lumbar laminectomy Family History Mother Asthma Father COVID-19 Social History Housing: Apartment Alcohol intake: former Patient Tobacco Use Status: Never used Tobacco e-Cigarette/Vaping Use: Never Used Second Hand Smoke Exposure: No service: No Current occupational status: disabled Cognitive needs: No Hearing needs: No Vision needs: Yes Questionnaire PHQ-9 Over the last 2 weeks, how often have you been bothered by any of the following problems? 1. Little interest or pleasure in doing things: not at all 2. Feeling down, depressed, or hopeless: not at all 3. Trouble falling or staying asleep, or sleeping too much: several days 4. Feeling tired or having little energy: not at all 5. Poor appetite or overeating: not at all 6. Feeling bad about yourself - or that you are a failure or have let yourself or your family down: not at all 7. Trouble concentrating on things, such as reading the newspaper or watching television: not at all 8. Moving or speaking so slowly that other people could have noticed. Or the opposite - being so fidgety or restless that you have been moving around a lot more than usual: not at all 9. Thoughts that you would be better off or of hurting yourself in some way: not at all Total score: 1 Depression Screening Interpretation: Negative Depression Screening Done: Yes 19643 - PHQ-9 Billing: Yes Source: Developed by Drs. Dick Garcia, Madhuri Elder, Jozef Rutledge and colleagues, with an educational edmund from [employer]. Thrive Questionnaire Date Thrive assessed: 07/02/24 I am a: Patient What is your living situation today?: I have a steady place to live Within the past 12 months, did the food you bought not last and you didn't have the money to get more?: I choose not to answer this question Within the past 12 months, did you worry whether your food would run out before you got money to buy more?: I choose not to answer this question Do you have trouble paying for medicines?: I choose not to answer this question Do you have trouble getting transportation to medical appointments?: No Do you have trouble paying your heating and electricity bill?: I choose not to answer this question Do you have trouble taking care of your child, family member or friend?: I choose not to answer this question Do you have trouble with day-to-day activities such as bathing, preparing meals, shopping, managing finances, etc.?: Yes Are you currently unemployed and looking for a job?: Yes Are you interested in more education?: I choose not to answer this question Please select the resources that you would like help with: None Currently or been in a relationship where the following occur: I choose not to answer THRIVE Score: 0 AUDIT C Alcohol Use Questionnaire (AUDIT-C) 1. How often do you have a drink containing alcohol?: Never Total Score: 0 Score Reviewed/Action Taken: No MAGDA-7 AMB Questionnaire MAGDA-7 Date MAGDA - 7 assessed: 07/02/24 Feeling nervous, anxious, or on edge: 0 = Not at all Not being able to stop or control worryin = Not at all Worrying too much about different things: 0 = Not at all Trouble relaxin = Not at all Being so restless that it is hard to sit still: 0 = Not at all Becoming easily annoyed or irritable: 0 = Not at all Feeling afraid as if something awful might happen: 0 = Not at all Total MAGDA-7 score (0-4 normal; 5-9 mild; 10-14 moderate; 15-21 severe): 0 Source: Developed by Drs. Dick Garcia, Madhuri Elder, Jozef Rutledge and colleagues, with an educational edmund from [employer]. MAGDA-7 Assessment Billing MAGDA-7 Assessment Tool: MAGDA-7 Assessment 00088 Review of Systems Const All systems reviewed & are unremarkable except as noted in HPI and below Card Denies chest pain at rest, Denies chest pain with activity, Denies edema, Denies irregular heart rhythm, Denies claudication, Denies dyspnea, Denies dyspnea on exertion, Denies orthopnea, Denies paroxysmal nocturnal dyspnea and Denies slow heart rate Resp Denies cough, Denies dyspnea and Denies dyspnea on exertion GI Denies abdominal pain, Denies change in bowel habits, Denies excessive flatus, Denies nausea and Denies vomiting Denies urinary hesitancy, Denies urinary incontinence and Denies urinary urgency Neuro Denies lack of coordination Physical exam (Primary Care) Vital Signs: Last Vital Signs Pulse 73 07/02/24 12:43 BP 124/86 07/02/24 12:43 Pulse Ox 98 07/02/24 12:43 Oxygen Delivery Method Room Air 07/02/24 12:43 BMI result Body Mass Index 23.8 Tobacco/Smoking Status: Tobacco use Status Tobacco use date assessed 07/02/24 07/02/24 12:44 Patient Tobacco Use Status Never used Tobacco 07/02/24 12:44 e-Cigarette/Vaping Use Never Used 07/02/24 12:44 PHQ-9: PHQ-9 Score PHQ-9: Total score 1 07/02/24 13:12 Depression Screening Interpretation: Negative Thrive Assessment: Date of Thrive Assessment Date Thrive assessed 07/02/24 07/02/24 12:44 Currently or been in a relationship where the following occur: I choose not to answer Resp Effort & Inspection: normal respiratory effort Auscultation: clear to auscultation bilaterally Cardio Jugular venous distension: no JVD Rate: regular rate Rhythm: regular rhythm Heart sounds: S1 normal heart sound present and S2 normal heart sound present Extrem General: Yes full ROM Results AMB Hemoglobin A1c AMB Hemoglobin A1c 8.1 % Last Edit by AMANDA Dick on 07/02/24 13:12 Results Reviewed Results Reviewed: Laboratory Last Values Hgb A1c (Clinic) 8.1 % (4.0-6.0) H 07/02/24 13:11 Coding Level of Care Code Est Pt Level 4 (98244) Complex EM visit Add On G2211 Diagnoses Hospital discharge follow-up Z09 Type 2 diabetes mellitus without complication, without long-term current use of insulin E11.9 Diabetes mellitus complication status: without complication Diabetes mellitus intermediate teacher insulin use: without chcf use Diabetes mellitus type: type 2 Unstable angina I20.0 Mild persistent asthma without complication J45.30 Asthma complication type: uncomplicated Hyperlipidemia LDL goal <70 E78.5 Additional Codes MAGDA-7 Assessment Billing - MAGDA-7 Assessment Tool: MAGDA-7 Assessment 83941 ([id number]) PHQ-9 - 77980 - PHQ-9 Billing: Yes ([id number]) Time Spent (min) 24 Assessment & Plan Assessment & Plan (1) Hospital discharge follow-up: Code(s): Z09 - Encounter for follow-up examination after completed treatment for conditions other than malignant neoplasm Category: Medical (2) Diabetes mellitus: Code(s): E11.9 - Type 2 diabetes mellitus without complications Category: Medical Qualifiers: Diabetes mellitus complication status: without complication Diabetes mellitus chcf insulin use: without intermediate teacher use Diabetes mellitus type: type 2 Qualified Code(s): E11.9 - Type 2 diabetes mellitus without complications (3) Unstable angina: Code(s): I20.0 - Unstable angina Category: Medical (4) Mild persistent asthma: Code(s): J45.30 - Mild persistent asthma, uncomplicated Category: Medical Qualifiers: Asthma complication type: uncomplicated Qualified Code(s): J45.30 - Mild persistent asthma, uncomplicated (5) Hyperlipidemia LDL goal <70: Code(s): E78.5 - Hyperlipidemia, unspecified Category: Medical Plan The patient will maintain the current regimen for managing Type 2 Diabetes Mellitus and undergo further laboratory testing in four months. Jardiance will be increased. The coronary artery disease management includes Brilinta and follow-up with a chief operating officer. Asthma remains controlled under current treatment. Neuropathic pain is managed with Gabapentin. Continuous management of hypertension and dyslipidemia will be done using Metoprolol and Rosuvastatin, respectively. The patient will adhere to recommended lifestyle modifications and is to report any recurrence of symptoms, with a planned follow-up appointment with the chief operating officer. Patient was informed and verbally consented to the use of an ambient scribe for clinic note documentation during this visit. I discussed with the patient the importance of maintaining medication adherence to address his Type 2 Diabetes Mellitus and prevent complications associated with coronary artery disease. The recent NSTEMI and successful stent placement necessitate ongoing monitoring and follow-up with a chief operating officer. I highlighted the need for regular performance of cardiac evaluations and maintenance of medication protocols, including Brilinta, to prevent progression. We discussed the medical management of dyslipidemia and hypertension and the significance of consistent A1C monitoring for diabetes management. The patient comprehends instructions regarding continuation of current therapies and awareness of symptom management [id number]. Orders: Orders Lipid Panel 4 Months E78.5 - Hyperlipidemia, unspecified Microalbumin, Random (w Creat) 4 Months R80.9 - Proteinuria, unspecified Comprehensive [place]. Panel Fast 4 Months E11.9 - Type 2 diabetes mellitus without complications AMB Hemoglobin A1c Today Z13.9 - Encounter for screening, unspecified Medications: New empagliflozin (Jardiance) 25 mg PO DAILY 90 tabs 1RF 90 days E11.9 - Type 2 diabetes mellitus without complications Discontinued empagliflozin (Jardiance) Discontinued Reason: Order 10 mg PO DAILY 90 days 90 tabs 1RF Patient Instructions: - Continue current medication regimen as prescribed. - Monitor blood glucose levels daily. - Adhere to asthma treatment plan to ensure disease control. - Follow chief operating officer?s instructions and attend follow-up appointments as scheduled. - Report any new or worsening symptoms, especially chest pain or breathing difficulties. - Engage in lifestyle modifications as previously advised to improve cardiovascular health. - Expect to undergo lab tests in four months; no immediate tests required.
== END 2024-07-02 13:09 | disposition home or self-care (01) ==
PROVIDERS: PCP Internal Medicine; Visit Provider Internal Medicine
DX: Z09 Encounter for follow-up examination after completed treatment for conditions other than malignant neoplasm (principal); E11.9 Type 2 diabetes mellitus without complications; I20.0 Unstable angina; J45.30 Mild persistent asthma, uncomplicated; E78.5 Hyperlipidemia, unspecified; Z13.9 Encounter for screening, unspecified

== ENCOUNTER → 2024-07-02 12:39 | Outpatient (BNVA) | payer OTHER, SELFPAY | PROVIDERS: PCP Internal Medicine; Visit Provider Internal Medicine | DX: Z09 Encounter for follow-up examination after completed treatment for conditions other than malignant neoplasm (principal); E11.9 Type 2 diabetes mellitus without complications; I20.0 Unstable angina; E78.5 Hyperlipidemia, unspecified; J45.30 Mild persistent asthma, uncomplicated | CPT/HCPCS: 83036; 96127; 99212 ==

== ENCOUNTER 2024-07-17 07:15 | Outpatient (AMB) | payer OTHER, SELFPAY ==
[2024-07-17 07:24] VITALS: BP 138/62; PULSE 96; O2SAT 97; BMI 22.7
--- NOTE | 2024-07-17 07:24 | A.OFFPC_ITS ---
Vital Signs 07/17/24 07:24 Height 5 ft 3 in Weight 128 lb BMI 22.7 BP 138/62 Blood Pressure Location Lt brachial Position Sitting Pulse 96 Pulse Source Pulse Oximeter Pulse Oximetry (%) 97 Oxygen Delivery Method Room Air Intake [place] [facility] [place] pain-RT side weakness Allergies Penicillins [PENICILLINS] Allergy (Unknown, Verified 07/17/24 07:24) UNKNOWN shrimp Allergy (Unknown, Verified 07/17/24 07:24) UNKNOWN Tobacco use date assessed: 07/02/24 Fall risk assessment: No Falls in past year Last assessed Fall Risk: 07/17/24 Dental Screening Dental Screen Date: 07/17/24 Did you have a dental visit in the last 12 months?: Yes Did you have a dental problem in the last 6 months where you did not have access to dental care?: No Was dental information given to patient?: Patient has dentist HPI HPI Comments History of Present Illness Details 63 Y/O Male patient who presents today f or HDF.PMHx significant for T2DM, HDL, HTN, CAD and Right sided weakness. [place] [facility] [place] after he suffered NSTEMI. He [place] [facility] [place] He was [place] [facility] [place] for right sided body weakness and feared a Stroke. He had an MRI done that showed: C3-C4 central disc extrusion extending below the level of the disc space to C3-4 Disc, this compresses cervical cord @ C3-4 and the majority of C4 causing central canal narrowing C4-5. Patient asking for Referral to Neurology (Dr. Dolores Liu @ [facility]). [facility] Medical History (Updated 07/17/24 @ 08:06 by Dari Jovel NP) Nerve compression NSTEMI (non-ST elevated myocardial infarction) CAD (coronary artery disease) Poison jorge Mild persistent asthma Diabetes mellitus Surgical History History of colonoscopy H/O angioplasty Ear anomaly S/P correction of deviated nasal septum History of lumbar laminectomy Family History Mother Asthma Father COVID-19 Social History Housing: Apartment Alcohol intake: former Patient Tobacco Use Status: Never used Tobacco Tobacco use type: Cigarette e-Cigarette/Vaping Use: Never Used Second Hand Smoke Exposure: No service: No Current occupational status: disabled Cognitive needs: No Hearing needs: No Vision needs: Yes Questionnaire Thrive Questionnaire Date Thrive assessed: 07/02/24 MAGDA-7 AMB Questionnaire MAGDA-7 Date MAGDA - 7 assessed: 07/02/24 Source: Developed by Drs. Dick Garcia, Madhuri Elder, Jozef Rutledge and colleagues, with an educational edmund from [employer]. Review of Systems Const All systems reviewed & are unremarkable except as noted in HPI and below Physical exam (Primary Care) Vital Signs: Last Vital Signs Pulse 96 07/17/24 07:24 BP 138/62 07/17/24 07:24 Pulse Ox 97 07/17/24 07:24 Oxygen Delivery Method Room Air 07/17/24 07:24 BMI result Body Mass Index 22.7 Tobacco/Smoking Status: Tobacco use Status Tobacco use date assessed 07/02/24 07/17/24 07:34 Patient Tobacco Use Status Never used Tobacco 07/17/24 07:34 Tobacco use type Cigarette 07/17/24 07:34 e-Cigarette/Vaping Use Never Used 07/17/24 07:34 Thrive Assessment: Date of Thrive Assessment Date Thrive assessed 07/02/24 07/17/24 07:34 Const General: cooperative and no acute distress Orientation/consciousness: patient oriented x3 HENMT Head: Yes normocephalic Eyes Pupils: Equal, round and reactive pupils present EOM: EOMs intact bilaterally Resp Effort & Inspection: normal respiratory effort and able to speak in complete sentences Auscultation: clear to auscultation bilaterally Cardio Rate: regular rate Heart sounds: S1 normal heart sound present and S2 normal heart sound present Neuro Other: Right sided weakness. General: patient oriented x3 Cranial nerves: Yes Equal, round and reactive pupils present Psych Speech and movement: Normal speech and movement present Coding Level of Care Code Est Pt Level 4 (27138) Diagnoses Nerve compression T14.8XXA NSTEMI (non-ST elevated myocardial infarction) I21.4 Time Spent (min) 20 Assessment & Plan Assessment & Plan (1) Nerve compression: Code(s): T14.8XXA - Other injury of unspecified body region, initial encounter Category: Medical Plan: Referral Sent to Neurology (Dr. Dolores Liu). (2) NSTEMI (non-ST elevated myocardial infarction): Code(s): I21.4 - Non-ST elevation (NSTEMI) myocardial infarction Category: Medical Plan: Managed By Cardiology. Orders: Referrals Neurology Referral T14.8XXA - Other injury of unspecified body region, initial encounter
== END 2024-07-17 07:54 | disposition home or self-care (01) ==
LOC: HO.HMCH 07:16
PROVIDERS: PCP Internal Medicine; Visit Provider Nurse Practitioner Family
DX: T14.8XXA Other injury of unspecified body region, initial encounter (principal); I25.2 Old myocardial infarction

== ENCOUNTER → 2024-07-17 07:15 | Outpatient (BNVA) | payer OTHER, SELFPAY | PROVIDERS: PCP Internal Medicine; Visit Provider Nurse Practitioner Family | DX: I21.4 Non-ST elevation (NSTEMI) myocardial infarction (principal); T14.8XXD Other injury of unspecified body region, subsequent encounter | CPT/HCPCS: 99212 ==

== ENCOUNTER 2024-07-21 12:39 | Outpatient (AMB) | payer MEDICAID, SELFPAY ==
[2024-07-21 13:08] VITALS: BP 120/62; PULSE 75; BMI 22.3
--- NOTE | 2024-07-21 13:08 | A.OFFVIS_ITS ---
Vital Signs 07/21/24 13:08 Height 5 ft 3 in Weight 125 lb 10.616 oz BMI 22.3 BP 120/62 Blood Pressure Location Lt brachial Position Sitting Pulse 75 Pulse Source Pulse Oximeter Intake Visit Reasons: r/s 06/19/24 2 wks followup cardiac cath Collections Attorney Required: No Allergies Penicillins [PENICILLINS] Allergy (Unknown, Verified 07/21/24 13:12) UNKNOWN shrimp Allergy (Unknown, Verified 07/21/24 13:12) UNKNOWN Medication List - Last Reconciled 07/21/24 by TOÑA Duncan albuterol sulfate 90 mcg/actuation (ProAir RespiClick) 2 inhalations inhalation Q6H PRN 30 days aspirin (Adult Aspirin Regimen) 81 mg PO DAILY blood sugar diagnostic (FreeStyle Test strips) As directed blood-glucose meter (FreeStyle Lite Meter kit) As directed empagliflozin (Jardiance) 25 mg PO DAILY 90 days fluticasone propion-salmeterol 115-21 mcg/actuation (Advair HFA) 2 puffs inhalation BID 30 days lancets (FreeStyle Lancets) As directed metformin 1,000 mg PO BID methylprednisolone PO PER PKG DIR metoprolol succinate ER 25 mg PO DAILY ticagrelor (Brilinta) mg PO ONCE HPI HPI r/s 06/19/24 2 wks followup cardiac cath: Details: Marco is a 63-year-old male with past medical history of hyperlipidemia, diabetes who reported chest discomfort on his last visit. He was sent to the emergency room for evaluation. His EKG showed inferior lateral ST depressions. His echo showed EF greater than 70% with no regional wall motion abnormalities. His troponin was negative. For his symptom and EKG was transferred to [facility] for further evaluation. A cardiac catheterization showed severe LAD stenosis and stent was placed. Last week he presented to [facility] with concern for intermittent right-sided numbness and weakness. He was found to have C-spine cord compression and was evaluated by Neurosurgery. He was set up with outpatient follow-up by them. Today he reports that he continues to have some right-sided numbness and weakness but states it has improved some since his hospital discharge. He has no new neurological type symptoms. He denies visual changes, speech disturbances. He has no chest discomfort at rest or during activity. No shortness of breath, PND, orthopnea or edema. No lightheadedness, presyncope, syncope, falls. Family members are present and they are assisting with Kiswahili interpretation at his request. They tell me that Chidi stopped some of his medications. He is currently not taking Brilinta or his cholesterol-lowering agent for reason. [facility] Medical History (Updated 07/21/24 @ 15:41 by Reena Srivastava, COP BREAKER-C) Nerve compression NSTEMI (non-ST elevated myocardial infarction) CAD (coronary artery disease) Poison jorge Mild persistent asthma Diabetes mellitus Surgical History (Updated 07/21/24 @ 15:15 by Reena Srivastava, COP BREAKER-C) History of cardiac cath History of colonoscopy H/O angioplasty Ear anomaly S/P correction of deviated nasal septum History of lumbar laminectomy Family History Mother Asthma Father COVID-19 Social History Housing: Apartment Alcohol intake: former Patient Tobacco Use Status: Never used Tobacco Tobacco use type: Cigarette e-Cigarette/Vaping Use: Never Used Second Hand Smoke Exposure: No service: No Current occupational status: disabled Cognitive needs: No Hearing needs: No Vision needs: Yes Review of Systems Const All systems reviewed & are unremarkable except as noted in HPI and below ENT Denies dizziness Card Denies chest pain, Denies chest pain at rest, Denies chest pain with activity, Denies rapid heart rate, Denies pedal edema, Denies edema, Denies leg edema, Denies lightheadedness, Denies palpitations, Denies dyspnea, Denies dyspnea on exertion and Denies orthopnea Resp Denies cough, Denies dyspnea and Denies dyspnea on exertion GI Denies hematochezia and Denies change in stool character Musc Details: Mild heaviness to right arm and right leg. - improved some since his ER visit last week Denies abnormal gait, Denies limited range of motion, Denies muscle cramps, Reports muscle weakness, Denies numbness, Denies radiating pain into limb, Denies stiffness and Denies tingling Neuro Denies abnormal gait, Denies dizziness, Denies numbness and Denies tingling Endo Denies palpitations Physical Exam Vital Signs: Last Vital Signs Pulse 75 07/21/24 13:08 BP 120/62 07/21/24 13:08 BMI result Body Mass Index 22.3 Const General: cooperative, healthy appearing, comfortable and no acute distress Orientation/consciousness: patient oriented x3 Neck Neck: Yes normal visual inspection Resp Effort & Inspection: normal respiratory effort Auscultation: clear to auscultation bilaterally, no rales, no rhonchi and no wheezes Cardio Jugular venous distension: no JVD Rate: regular rate Rhythm: regular rhythm Heart sounds: S1 normal heart sound present, S2 normal heart sound present, no murmurs and no rubs Neuro General: patient oriented x3 Extrem General: Yes normal to inspection and No no pedal edema Psych Appearance: grossly normal Mental Status: mental status grossly normal Speech and movement: Normal speech and movement present Assessment & Plan Assessment & Plan (1) NSTEMI (non-ST elevated myocardial infarction): Code(s): I21.4 - Non-ST elevation (NSTEMI) myocardial infarction Category: Medical Plan: Recent reports of chest discomfort with EKG changes. He underwent cardiac catheterization on 06/09/2024 showing mid LAD 80% stenosis, YAYA was placed. Last echo 06/09/2024 with EF greater than 70%, no regional wall motion abnormalities. He was put on aspirin and Brilinta. He tells me he does not have Brilinta at home. Will send refill to the pharmacy and instructed to start today. He was recently at [facility] and his atorvastatin was changed to rosuvastatin for unclear reason. He has atorvastatin at home, will send refill to pharmacy and instructed to take. He is on metoprolol. The importance of each medication reviewed with him. Will hold off on cardiac rehab due to his current neck issues. He is seeing the neurosurgeon later this week. If cardiac rehab is approved it will be ordered at that time. Cardiology follow-up 3 months, sooner if needed. (2) CAD (coronary artery disease): Comment: YAYA to the LAD, 06/09/2024 Code(s): I25.10 - Atherosclerotic heart disease of [place] coronary artery without angina pectoris Category: Medical Qualifiers: Coronary Disease-Associated Artery/Lesion type: [place] artery [place] vs. transplanted heart: [place] heart Associated angina: without angina Qualified Code(s): I25.10 - Atherosclerotic heart disease of [place] coronary artery without angina pectoris (3) History of cardiac cath: Comment: 06/09/2024, lad mid 80% stenosis, YAYA placed, left circumflex minimal irregularities, RCA normal Code(s): Z98.890 - Other specified postprocedural states Category: Surgical Plan: Right radial catheterization site well healed (4) Hyperlipidemia LDL goal <70: Code(s): E78.5 - Hyperlipidemia, unspecified Category: Medical Plan: He is currently not on cholesterol agents due to a recent change in his medications following [facility] admission. Will have him restart on high-dose atorvastatin since he has that at home. He will need a fasting lipid profile around the time of next visit. Order entered. (5) Hospital discharge follow-up: Code(s): Z09 - Encounter for follow-up examination after completed treatment for conditions other than malignant neoplasm Category: Medical Plan: [facility] discharge 06/10/2024 and 07/14/2024 reviewed. Plan Time spent on chart review, documentation, interview and assessment Medications: New atorvastatin Cholesterol-lowering 80 mg PO BEDTIME 90 tabs 3RF aspirin (Adult Aspirin Regimen) 81 mg PO DAILY 90 tabs 3RF metoprolol succinate ER 25 mg PO DAILY 90 tabs 3RF Changed From ticagrelor (Brilinta) PO ONCE To ticagrelor (Brilinta) 90 mg PO BID 90 days 180 tabs 3RF Coding Level of Care Code Est Pt Level 4 (21993) Complex EM visit Add On G2211 Diagnoses NSTEMI (non-ST elevated myocardial infarction) I21.4 Coronary artery disease involving [place] coronary artery of [place] heart without angina pectoris I25.10 Coronary Disease-Associated Artery/Lesion type: [place] artery [place] vs. transplanted heart: [place] heart Associated angina: without angina History of cardiac cath Z98.890 Hyperlipidemia LDL goal <70 E78.5 Hospital discharge follow-up Z09 Time Spent (min) 34
--- OUTSIDE RECORDS SUMMARY | 2024-07-21 14:52 | XMS_ITS | Clinical Summary ---
Author Organization [address] [facility] Address [address] [place] [address] Phone Care Team Providers Care Senior C Software Engineer Name Role Phone Pratibha Hylton MD Primary Care Provider [phone] Social History Tobacco Use Types Packs/Day Years Used Date Smoking Tobacco: Never Assessed Sex and Gender Information Value Date Recorded Sex Assigned at Not on file Legal Sex Male 3:52 PM EDT Gender Identity Not on file Sexual Orientation Not on file Plan of Treatment Upcoming Encounters Date Type Department Care Team ([facility] Contact Info) Description 07/23/2024 3:00 PM EDT Office Visit [facility] [address] [facility] [address] [place] [id number] Dolores Liu MD [address] [place], [place] [id number] Health Maintenance Due Date Last Done Comments DTaP,Tdap,and Td Vaccines (1 - Tdap) 12/10/1978 Pneumococcal Vaccine: 50+ Ye ars (1 of 1 - PCV) 12/10/2009 Zoster Vaccines (1 of 2) 12/10/2009 COVID-19 Vaccine ( - 2023-2 5 season) 2024 Influenza Vaccine (#1) 2024 Cholesterol Screening (Lipid Panel) 07/17/2024 Colorectal Cancer Screening: Colonoscopy 07/17/2024 Depression Screening 07/17/2024 HIV Screening 07/17/2024 Hepatitis C Screening 07/17/2024 Social Influencers of Health Screening 07/17/2024 RSV Immunization Patients 60 + Years Old (1 - 1-dose 75+ series) 12/10/2034 HIB Vaccines Aged Out No longer eligi ble based on patient's age to complete this topic HPV Vaccines Aged Out No longer eligi ble based on patient's age to complete this topic Hepatitis A Vaccines Aged Out No long er eligible based on patient's age to complete this topic Hepatitis B Vaccines Aged Out No long er eligible based on patient's age to complete this topic IPV Vaccines Aged Out No longer eligi ble based on patient's age to complete this topic MMR Vaccines Aged Out No longer eligi ble based on patient's age to complete this topic Meningococcal ACWY Vaccine Aged Out N o longer eligible based on patient's age to complete this topic Meningococcal B Vacine Aged Out No lo nger eligible based on patient's age to complete this topic Pneumococcal Vaccine: Pediat rics (0 to 5 Years) and At-Risk Patients (6 to 64 Years) Aged Out No longer eligible b ased on patient's age to complete this topic RSV Immunization Patients Un ragini 20 months Aged Out No longer eligible b ased on patient's age to complete this topic Varicella Vaccines Aged Out No longer eligible based on patient's age to complete this topic Insurance [facility] Care Teams Senior C Software Engineer Relationship Specialty Start Date End Date Pratibha Hylton MD [address] [place] [address] , [address] [facility] D/B/A: [facility] FIDELINA Osorio PCP - General Internal Medicine 07/17/24
== END 2024-07-21 14:04 | disposition home or self-care (01) ==
PROVIDERS: PCP Internal Medicine; Visit Provider Nurse Practitioner Family
DX: I21.4 Non-ST elevation (NSTEMI) myocardial infarction (principal); I25.10 Atherosclerotic heart disease of native coronary artery without angina pectoris; Z98.890 Other specified postprocedural states; E78.5 Hyperlipidemia, unspecified; Z09 Encounter for follow-up examination after completed treatment for conditions other than malignant neoplasm
CPT/HCPCS: 99214

== ENCOUNTER → 2024-07-21 12:39 | Outpatient (BNVA) | payer OTHER, SELFPAY | PROVIDERS: PCP Internal Medicine; Visit Provider Nurse Practitioner Family | DX: Z09 Encounter for follow-up examination after completed treatment for conditions other than malignant neoplasm (principal); I25.2 Old myocardial infarction; I25.10 Atherosclerotic heart disease of native coronary artery without angina pectoris; E78.5 Hyperlipidemia, unspecified; Z98.890 Other specified postprocedural states | CPT/HCPCS: 99212 ==

== ENCOUNTER 2024-07-31 13:38 | Outpatient (REF) | payer OTHER, SELFPAY ==
[2024-07-31 15:31] LABS: MANUAL DIFF FLAG NO
[2024-07-31 16:03] LABS: Basophils Absolute Auto 0.1 X10*3/uL (0.0-0.2); Basophils Percent Auto 0.8 % (0-2); Eosinophils Absolute Auto 0.1 X10*3/uL (0.0-0.4); Eosinophils Percent Auto 0.8 % (0-4); Hematocrit 47.3 % (42.0-52.0); Hemoglobin 16.2 g/dl (14.0-18.0); Imm Gran Abs Auto 0.02 X10*3/uL (0.00-0.03); Imm Gran Pct Auto 0.2 % (0.0-0.4); Lymphocytes Absolute Auto 1.2 X10*3/uL (1.2-4.9); Lymphocytes Percent Auto 14.5 % (20-40); Mean Corpuscular HGB Conc 34.2 g/dl (31.0-36.0); Mean Corpuscular Volume 90.4 fL (80.0-98.0); Monocytes Absolute Auto 0.4 X10*3/uL (0.1-1.2); Monocytes Percent Auto 5.2 % (2-11); Neutrophils Absolute Auto 6.7 x10*3/uL (2.0-8.3); Neutrophils Percent Auto 78.5 % (45-73); Platelet Count 245 X10*3/uL (160-400); Red Blood Count 5.23 X10*6/uL (4.60-5.80); Red Cell Distribution Width 12.6 % (11.0-16.0); White Blood Count 8.5 X10*3/uL (4.8-10.8)
[2024-07-31 16:05] LABS: Basophils Absolute Auto 0.1 X10*3/uL (0.0-0.2); Basophils Percent Auto 0.9 % (0-2); Eosinophils Absolute Auto 0.1 X10*3/uL (0.0-0.4); Eosinophils Percent Auto 0.9 % (0-4); Hematocrit 47.3 % (42.0-52.0); Hemoglobin 16.3 g/dl (14.0-18.0); Imm Gran Abs Auto 0.02 X10*3/uL (0.00-0.03); Imm Gran Pct Auto 0.2 % (0.0-0.4); Lymphocytes Absolute Auto 1.2 X10*3/uL (1.2-4.9); Lymphocytes Percent Auto 14.2 % (20-40); Mean Corpuscular HGB Conc 34.5 g/dl (31.0-36.0); Mean Corpuscular Hemoglobin 31.2 pg (27.0-33.0); Mean Corpuscular Volume 90.4 fL (80.0-98.0); Monocytes Absolute Auto 0.4 X10*3/uL (0.1-1.2); Neutrophils Absolute Auto 6.7 x10*3/uL (2.0-8.3); Neutrophils Percent Auto 78.8 % (45-73); Platelet Count 251 X10*3/uL (160-400); Red Blood Count 5.23 X10*6/uL (4.60-5.80); Red Cell Distribution Width 12.4 % (11.0-16.0); White Blood Count 8.6 X10*3/uL (4.8-10.8)
[2024-07-31 16:09] LABS: Estimated Average Glucose 240 mg/dL
[2024-07-31 16:51] LABS: Erythrocyte Sedimentation Rate 10 MM/HR (0-15)
[2024-07-31 16:58] LABS: Creatinine Urine 74.15 mg/dL; Microalbum/Creatinine Ratio Ur 10.7 ug/mg cr (<30)
[2024-07-31 17:24] LABS: Alanine Aminotransferase 113 U/L (0-40); Albumin Level 4.5 g/dL (3.5-5.0); Anion Gap 14 (12-20); Aspartate Amino Transferase 49 U/L (5-37); Bilirubin Direct 0.2 mg/dL (0.0-0.5); Bilirubin Total 0.5 mg/dL (0.0-1.0); Blood Urea Nitrogen 17 mg/dL (9-16); C Reactive Protein < 0.10 mg/dL (< or = 0.50); Calcium 10.3 mg/dL (8.4-10.2); Carbon Dioxide 24 mmol/L (22-29); Chloride 104 mmol/L (96-108); Estimated Glomerular Filt Rate > 60; Glucose Fasting 177 mg/dL (60-99); Glucose Random 175 mg/dL (60-115); Iron 46 mcg/dL (45-160); Parathyroid Hormone Intact 56.9 pg/mL (8.7-77.1); Percent Iron Saturation 15 % (15-50); Phosphorus 3.2 mg/dL (2.7-4.5); Potassium 4.3 mmol/L (3.3-5.1); Sodium 138 mmol/L (135-145); Total Iron Binding Capacity 306 mcg/dL (228-428); Total Protein 8.2 g/dL (6.5-8.0); Unsaturated Iron Binding 260 ug/dL
[2024-07-31 17:35] LABS: Folate 15.2 ng/mL (> or = 4.0); Vitamin B12 326 pg/mL (200-900)
[2024-07-31 17:36] LABS: Vitamin D 25-OH Total 50.4 ng/mL (>30)
[2024-07-31 17:40] LABS: Alkaline Phosphatase 90 U/L (39-117); TSH reflex Free T4 1.19 uIU/mL (0.32-4.0); Vitamin D 25-OH Total 48.3 ng/mL (>30)
[2024-08-03 23:19] LABS: Lyme Abs Screen <0.90 index
[2024-08-04 06:13] LABS: Zinc 91 mcg/dL (60-130)
[2024-08-06 02:28] LABS: Vitamin A 59 mcg/dL (38-98)
[2024-08-09 12:47] LABS: Vitamin B1 11 nmol/L (8-30)
== END 2024-07-31 13:39 | disposition home or self-care (01) ==
LOC: HO.LAB 13:38
PROVIDERS: PCP Internal Medicine; Visit Provider Physician Assistant Medical
DX: Z09 Encounter for follow-up examination after completed treatment for conditions other than malignant neoplasm (principal); I25.10 Atherosclerotic heart disease of native coronary artery without angina pectoris; R53.1 Weakness; R51.9 Headache, unspecified; H54.60 Unqualified visual loss, one eye, unspecified; E11.9 Type 2 diabetes mellitus without complications; G95.20 Unspecified cord compression; Z79.82 Long term (current) use of aspirin; Z79.899 Other long term (current) drug therapy; Z00.00 Encounter for general adult medical examination without abnormal findings; D64.9 Anemia, unspecified; R00.2 Palpitations
CPT/HCPCS: 36415; 80053; 82043; 82248; 82306; 82550; 82570; 82607; 82746; 83036; 83540; 83735; 83970; 84100; 84425; 84443; 84590; 84630; 85025; 85652; 86140; 86617; 86618; 99212

== ENCOUNTER 2024-07-31 13:38 | Outpatient (AMB) | payer OTHER, SELFPAY ==
--- NOTE | 2024-07-31 13:53 | MHC.PC.OV ---
Vital Signs 07/31/24 13:57 Height 5 ft 3 in Weight 124 lb 4 oz BMI 22.0 BP 132/70 Blood Pressure Location Lt brachial Position Sitting Pulse 81 Pulse Source Pulse Oximeter Temp 97.5 F Temp Source Temporal Artery Scan Pulse Oximetry (%) 96 Oxygen Delivery Method Room Air Intake Visit Reasons: [facility] 07/26 heart conditions Intake Note: Patient is here for hospital discharge follow up. Patient was discharged from [facility] on 07/26/24. Requesting referral to Neurology for right side weakness. Climatology Professor Required: Yes Climatology Professor Language: Photographic Artist Name: Chey (daughter) Information Interpreted: non-clinical & clinical (pt decline theater teacher service prefer daughter to translate.) Dimension Quarry Supervisor: Present Accompanied by: Daughter Allergies Penicillins [PENICILLINS] Allergy (Unknown, Verified 07/31/24 17:34) UNKNOWN shrimp Allergy (Unknown, Verified 07/31/24 17:34) UNKNOWN Medication List - Last Reconciled 07/31/24 by Ramona Starr PA-C albuterol sulfate 90 mcg/actuation (ProAir RespiClick) 2 inhalations inhalation Q6H PRN 30 days alcohol swabs (Alcohol Pads) 1 pad topical TIDWMEAL aspirin (Adult Aspirin Regimen) 81 mg PO DAILY atorvastatin 80 mg PO BEDTIME blood sugar diagnostic (FreeStyle Lite Strips) 1 strip miscellaneous TIDWMEAL blood-glucose meter (FreeStyle Lite Meter kit) Check glucose TID before meals empagliflozin (Jardiance) 25 mg PO DAILY 90 days fluticasone propion-salmeterol 115-21 mcg/actuation (Advair HFA) 2 puffs inhalation BID 30 days insulin glargine (Lantus Solostar U-100 Insulin) 10 units (0.1 mL) subcut QPM lancets (FreeStyle Lancets) Check glucose TID before meals metformin 1,000 mg PO BID methylprednisolone PO PER PKG DIR metoprolol succinate ER 25 mg PO DAILY ticagrelor (Brilinta) 90 mg PO BID 90 days Tobacco use date assessed: 07/31/24 Fall risk assessment: No Falls in past year Last assessed Fall Risk: 07/31/24 Dental Screening Dental Screen Date: 07/17/24 [facility] Medical History (Updated 07/31/24 @ 17:49 by Ramona Starr, PA-C) Cervical spinal cord compression Monocular vision loss Acute right-sided weakness Nerve compression NSTEMI (non-ST elevated myocardial infarction) CAD (coronary artery disease) Poison jorge Mild persistent asthma Diabetes mellitus Surgical History History of cardiac cath History of colonoscopy H/O angioplasty Ear anomaly S/P correction of deviated nasal septum History of lumbar laminectomy Family History Mother Asthma Father COVID-19 Social History Housing: Apartment Alcohol intake: former Patient Tobacco Use Status: Never used Tobacco Tobacco use type: Cigarette e-Cigarette/Vaping Use: Never Used Second Hand Smoke Exposure: No service: No Current occupational status: disabled Cognitive needs: No Hearing needs: No Vision needs: Yes Questionnaire Thrive Questionnaire Date Thrive assessed: 07/02/24 MAGDA-7 AMB Questionnaire MAGDA-7 Date MAGDA - 7 assessed: 07/02/24 Source: Developed by Drs. Dick Garcia, Madhuri Elder, Jozef Rutledge and colleagues, with an educational edmund from [employer]. Physical exam (Primary Care) Vital Signs: Last Vital Signs Temp 97.5 F 07/31/24 13:57 Pulse 81 07/31/24 13:57 BP 132/70 07/31/24 13:57 Pulse Ox 96 07/31/24 13:57 Oxygen Delivery Method Room Air 07/31/24 13:57 Vitals signs have been reviewed. Care Plan Goal for BP management: <130/80 BMI result Body Mass Index 22.0 normal bmi Tobacco/Smoking Status: Tobacco use Status Tobacco use date assessed 07/31/24 07/31/24 13:55 Patient Tobacco Use Status Never used Tobacco 07/31/24 13:55 Tobacco use type Cigarette 07/31/24 13:55 e-Cigarette/Vaping Use Never Used 07/31/24 13:55 Thrive Assessment: Date of Thrive Assessment Date Thrive assessed 07/02/24 07/31/24 13:55 Coding Level of Care Code Est Pt Level 4 (33227) Complex EM visit Add On G2211 Diagnoses Hospital discharge follow-up Z09 Acute right-sided weakness R53.1 Headache R51.9 Monocular vision loss H54.60 Type 2 diabetes mellitus without complication, without long-term current use of insulin E11.9 Diabetes mellitus complication status: without complication Diabetes mellitus terminal gauger insulin use: without terminal gauger use Diabetes mellitus type: type 2 Coronary artery disease involving [place] coronary artery of [place] heart without angina pectoris I25.10 Coronary Disease-Associated Artery/Lesion type: [place] artery [place] vs. transplanted heart: [place] heart Associated angina: without angina Cervical spinal cord compression G95.20 Assessment & Plan Assessment & Plan (1) Hospital discharge follow-up: Code(s): Z09 - Encounter for follow-up examination after completed treatment for conditions other than malignant neoplasm Category: Medical (2) Acute right-sided weakness: Code(s): R53.1 - Weakness Category: Medical Plan: Continued symptom monitoring, emphasizing the need for stability through the use of a walker. MRI of brain, MRI of orbits and MRI of lumbar spine. Further assessment through neurological follow-up. (3) Headache: Code(s): R51.9 - Headache, unspecified Category: Medical Plan: Continued symptom monitoring, emphasizing the need for stability through the use of a walker. MRI of brain, MRI of orbits and MRI of lumbar spine. Further assessment through neurological follow-up. (4) Monocular vision loss: Code(s): H54.60 - Unqualified visual loss, one eye, unspecified Category: Medical Plan: Continued symptom monitoring, emphasizing the need for stability through the use of a walker. MRI of brain, MRI of orbits and MRI of lumbar spine. Further assessment through neurological follow-up. (5) Diabetes mellitus: Code(s): E11.9 - Type 2 diabetes mellitus without complications Category: Medical Qualifiers: Diabetes mellitus complication status: without complication Diabetes mellitus fdc insulin use: without fdc use Diabetes mellitus type: type 2 Qualified Code(s): E11.9 - Type 2 diabetes mellitus without complications Plan: Lantus insulin has been initiated at 10 units nightly to better control blood glucose levels in view of the elevated A1c of over 10. Follow-up in two weeks for reassessment and monitoring of blood glucose levels (6) CAD (coronary artery disease): Comment: YAYA to the LAD, 06/09/2024 Code(s): I25.10 - Atherosclerotic heart disease of [place] coronary artery without angina pectoris Category: Medical Qualifiers: Coronary Disease-Associated Artery/Lesion type: [place] artery [place] vs. transplanted heart: [place] heart Associated angina: without angina Qualified Code(s): I25.10 - Atherosclerotic heart disease of [place] coronary artery without angina pectoris Plan: Patient to continue aspirin and atorvastatin to maintain cardiovascular health. Suggestion to maintain regular cardiology follow-up for comprehensive disease management. (7) Cervical spinal cord compression: Code(s): G95.20 - Unspecified cord compression Category: Medical Plan: Continued treatment with Medrol to address inflammation, with plans for follow-up imaging and neurology consultations to determine further management of spinal compression symptoms. Plan Plan Patient was informed and verbally consented to the use of an ambient scribe for clinic note documentation during this visit. 1. Cervical Spinal Cord Compression At C3-C4 Continued treatment with Medrol to address inflammation, with plans for follow-up imaging and neurology consultations to determine further management of spinal compression symptoms. 2. History Of Coronary Artery Disease Patient to continue aspirin and atorvastatin to maintain cardiovascular health. Suggestion to maintain regular cardiology follow-up for comprehensive disease management. 3. Diabetes Mellitus Lantus insulin has been initiated at 10 units nightly to better control blood glucose levels in view of the elevated A1c of over 10. Follow-up in two weeks for reassessment and monitoring of blood glucose levels. 4. Hypertension And Hyperlipidemia Plans to optimize blood pressure and lipid management, proposing lifestyle adjustments, medication adherence, and periodic testing to monitor effectiveness. 5. Right-Sided Weakness Continued symptom monitoring, emphasizing the need for stability through the use of a walker. Further assessment through neurological follow-up. Discussion Notes I discussed with the patient and family the diabetes management plan, emphasizing the importance of regular blood sugar monitoring and the implementation of Lantus insulin. I explained the treatment for cervical spinal cord compression, including the use of Medrol. Additional imaging recommendations were made to explore the possibility of neurological complications affecting vision and persistent right-sided weakness. The need for cardiovascular monitoring was reiterated, given his history of coronary artery disease. I informed them of the anticipated follow-up requirements and encouraged them to maintain regular contact with healthcare providers. The importance of diabetic management in preventing further complications was underscored. Orders: Orders MR head/brain wo con Today H54.60 - Unqualified visual loss, one eye, unspecified, R53.1 - Weakness MR orbits face neck wo/w con Today H54.60 - Unqualified visual loss, one eye, unspecified, R53.1 - Weakness Magnesium Today Z00.00 - Encounter for general adult medical examination without abnormal findings Lyme IgG/IgM w/reflex to WB Today Z00.00 - Encounter for general adult medical examination without abnormal findings TSH reflex Free T4 Today Z00.00 - Encounter for general adult medical examination without abnormal findings Liver Panel Today Z00.00 - Encounter for general adult medical examination without abnormal findings Comprehensive Met. Panel Today Z00.00 - Encounter for general adult medical examination without abnormal findings Vitamin B12 and Folate Today Z00.00 - Encounter for general adult medical examination without abnormal findings Phosphorus Today Z00.00 - Encounter for general adult medical examination without abnormal findings MR lumbar spine wo/w con Today R53.1 - Weakness C Reactive Protein Today Z00.00 - Encounter for general adult medical examination without abnormal findings Complete Blood Count Auto Diff Today Z00.00 - Encounter for general adult medical examination without abnormal findings Erythrocyte Sedimentation Rate Today Z00.00 - Encounter for general adult medical examination without abnormal findings Creatine Kinase Total Today Z00.00 - Encounter for general adult medical examination without abnormal findings Vitamin D 25-OH Total Today Z00.00 - Encounter for general adult medical examination without abnormal findings Vitamin B1 Today Z00.00 - Encounter for general adult medical examination without abnormal findings Vitamin A Today Z00.00 - Encounter for general adult medical examination without abnormal findings Zinc Today Z00.00 - Encounter for general adult medical examination without abnormal findings Parathyroid Hormone Intact Today Z00.00 - Encounter for general adult medical examination without abnormal findings Hemoglobin A1c Today Z00.00 - Encounter for general adult medical examination without abnormal findings Referrals Neurology Referral R51.9 - Headache, unspecified, R53.1 - Weakness Endocrinology Referral E11.9 - Type 2 diabetes mellitus without complications Medications: New insulin glargine (Lantus Solostar U-100 Insulin) 10 units (0.1 mL) subcut QPM 15 mL 0RF E11.9 - Type 2 diabetes mellitus without complications alcohol swabs (Alcohol Pads) 1 pad topical TIDWMEAL 100 ea 1RF Changed From blood sugar diagnostic (FreeStyle Test strips) As directed 50 ea 11RF E11.9 - Type 2 diabetes mellitus without complications To blood sugar diagnostic (FreeStyle Test strips) Check glucose TID before meals 100 ea 11RF E11.9 - Type 2 diabetes mellitus without complications From blood-glucose meter (FreeStyle Lite Meter kit) As directed 1 ea 0RF E11.9 - Type 2 diabetes mellitus without complications To blood-glucose meter (FreeStyle Lite Meter kit) Check glucose TID before meals 1 ea 1RF E11.9 - Type 2 diabetes mellitus without complications From lancets (FreeStyle Lancets) As directed 100 ea 0RF To lancets (FreeStyle Lancets) Check glucose TID before meals 100 ea 1RF Patient Instructions: Patient Instructions - Begin Lantus 10 units at bedtime to help control blood sugar levels. - Monitor blood sugars closely and record the readings for follow-up. - Continue using the walker to aid mobility and reduce the risk of falls. - Schedule follow-up appointments with a neurologist and carpet cleaning technician as directed. - Watch for any new symptoms or worsening of current symptoms; seek immediate care if necessary. - Return in two weeks for a follow-up appointment with recorded blood sugar levels. - Maintain adherence to current medications: aspirin, atorvastatin, metformin, and Jardiance. - Engage in lifestyle changes: focus on a balanced diet, weight management, and regular physical activity. Scribe Plan - Not visible on output: Patient presents to the office for a hospital discharge follow-up from [facility]. Date of admission: 07/24/2024 Date of discharge: 07/25/2024 This is a Follow-up from admission at [facility] History of Present Illness The patient is a 63-year-old male presenting with right-sided weakness following a recent hospitalization. His medical history is significant for poorly controlled diabetes mellitus, with a higher A1c possibly influenced by recent steroid use, and a history of coronary artery disease, managed with past PCI to the LAD artery. He has hypertension and hyperlipidemia. The patient reports initial symptoms of right-sided weakness, numbness of the right face, arm, and leg, and blurred vision in the right eye that coincided with a sudden headache. These symptoms prompted investigations, which revealed cervical spinal cord compression due to a herniated disc at C3-C4, although no acute findings on brain imaging were seen. He remains symptomatic concerning these neurological and visual issues, despite receiving corticosteroids and traditional diabetes management post-discharge. Hospital Course/Discharge Summary: 63-year-old male with a history of diabetes CAD status post PCI to LAD in 2/4, hypertension, hyperlipidemia, recently diagnosed C3-C4 disc herniation with spinal cord compression presents after waking with headache at 02:30 and while in the bathroom noted increased numbness of right face/arm and leg with increased weakness. Therefore he presented to the emergency department at [facility] on 07/23 5. He had ongoing right-sided paresthesia with possible new right-sided weakness and intermittent right monocular vision blurry in the setting of acute onset that a.m. and known cervical compression, recent steroid use and hyperglycemia. A neuro consult was obtained and patient had a CTA of head and neck with no large vessel occlusion or obstruction. ESR and CRP were normal. Patient continued to complain of numbness therefore they did an MRI of the brain which was normal. They were unsure the etiology of his symptoms. Was no longer having a headache at that time and neurology did not feel like he needed any further workup at that time and they wanted him to be discharged. Physical therapy evaluated the patient and they recommended discharging the patient home with a walker. Patient using walker chronically at this time for ambulation. They also recommended long-term goal A1c of less than 7.0, LDL of 40-70 along with a BP goal of less than 130/80. Patient's A1c level was 10 and they recommended for him to follow-up as an outpatient with PCP for this. He also had an MRI of the C-spine at C3-C4 there is a central disc extrusion extending below the level of the disc space to the level of the C3-C4 disc. This compresses the cervical cord at C3-C4 and the majority of C4 with less pronounced central canal narrowing at C4-C5. Patient was discharged with Medrol Dosepak on 07/06 and he completed that course. He was seen by neuro surgery at [facility] no surgical intervention plan. The neurosurgeon at [facility] does not do Neurology therefore he was instructed to follow-up with a neurologist referred by PCP as an outpatient basis for persistent right-sided weakness and intermittent right monocular vision blurred. Discharged to/Current Location: Home Lives with: Family Diagnosis: Acute right-sided weakness; cervical spinal cord compression; uncontrolled diabetes with an A1c level of 10.0 Procedures performed: Patient had blood work, CT scan of brain, CTA of head and neck and MRI of brain along with MRI of cervical spine New medications: Patient was not prescribed any new medications Discontinued medications: None of the patient's medications were discontinued Change medications/dosing: There were no changes in medications or dosing Pending labs: There are no pending lab Pending diagnostic test: There are no pending diagnostic 10 Any Follow-up Labs required? There are no follow-up labs required although will obtain repeat labs to evaluate for any other acute processes that could be causing the patient's persistent weakness and intermittent blurred vision in the right eye Any Follow-up Diagnostic test required? Will repeat MRI of brain, will obtain MRI of orbits along with MRI of lumbar spine to evaluate for any causes of the patient's right-sided weakness How are you feeling? Patient reports he still has slight headache on the right frontal aspect of his scalp. He is using a walker. He is still feeling weak on the right side of his entire body and still having paresthesias/numbness to the right side of his body that has been unchanged and has not worsened since he was discharged from [facility] Are you in any pain or discomfort? Patient does have some discomfort on the right side of his body Do you have any questions about your condition or discharge instructions? All the patient's questions along with the daughter's questions were answered during this visit about the patient's condition and discharge instructions Were you able to get your medications filled? Patient was able to get all his medications for Do you have any questions about your medications? Patient does not have any questions about his medications at this time Any referrals required? Patient needs a neurology referral which is being placed at this time. Daughter is requesting Dr. Lewis here at [facility] Were you able to schedule your follow-up appointment? Will place referral and they will make sure that they follow-up with the neurology If home health was ordered, have they contact you? Patient already has home health services in place Any outpatient services, if so, are you scheduled? Patient was able to set up his PT services Are there any additional resources like transportation you might need during her recovery? Patient does not feel like he needs any additional resources like transportation at this time - [facility]? Patient's daughters help with all the patient needs - PHARMACY TECHNICIAN TRAINEE? Patient's daughter helps with all that the patient's needs - Meals on wheels? Patient's daughters help with his meal Educational need/resources: Patient is not feel like he needs any additional resources or educational needs What support system do you have? Patient has 3 daughters at help him Social History - Patient has family support, primarily managed by daughters. - No detailed account on employment or lifestyle habits, such as exercise or nutritional intake. Review of Systems - Neurological: Reports persistent right-sided weakness and numbness. - Ophthalmologic: Reports intermittent right monocular blurred vision. Physical Exam Appearance: Alert. Oriented X3. No acute distress. Head: Normal external exam. Normocephalic. Atraumatic. Eyes: Pupils are equal, round, and reactive to light. Extraocular movements intact. Conjunctiva and sclera normal. Eyelids normal. Reports of intermittent right monocular vision blurring. Ears: External auditory canal normal. Tympanic membranes normal. Throat: Pharynx normal. Uvula midline. Moist mucous membranes. Neck: Normal inspection. Neck supple. Full range of motion. No adenopathy. Thyroid Normal. No meningeal signs. No neck mass noted. Cardiovascular: Normal heart rate and rhythm. Heart sound normal. No murmurs noted. Pulses normal throughout. Respiratory: No respiratory distress. Painless inspiration. Breath sounds normal. No wheezes/rales/rhonchi noted. Chest nontender. No accessory muscle usage noted or decreased air movement noted. Abdomen: Soft and nontender. Bowel sounds normal in all 4 quadrants. No distention noted. No organomegaly noted. No visible injury noted. Back: No costovertebral angle tenderness. Full range of motion noted. Skin: Skin warm and dry. Normal skin color. Normal skin turgor. No rashes/lesions/lacerations noted. Extremities: No lower extremity edema. Extremities exhibit normal range of motion. Extremities nontender. Reports of increased numbness and weakness on the right side. Neuro: Oriented X 3. Decreased strength to the right side of the body 4/5 compared to the left side. Otherwise reflexes are normal. Patient has a normal steady gait with walker. No facial asymmetry. Patient has a normal voice. Normal affect. Results - MRI Brain: Normal. - MRI Cervical Spine: Central disc extrusion at C3-C4 with spinal cord compression. - CT Head and Neck: No large vessel occlusion. - Blood Work: Hemoglobin A1c greater than 10, slight elevation in ALT and alkaline phosphatase.
[2024-07-31 13:57] VITALS: BP 132/70; PULSE 81; TEMP 36.4; O2SAT 96; BMI 22.0
== END 2024-07-31 14:59 | disposition home or self-care (01) ==
LOC: HO.HMCH 13:39
PROVIDERS: PCP Internal Medicine; Visit Provider Physician Assistant Medical
DX: E11.9 Type 2 diabetes mellitus without complications (principal); G95.20 Unspecified cord compression; Z09 Encounter for follow-up examination after completed treatment for conditions other than malignant neoplasm; R53.1 Weakness; R51.9 Headache, unspecified; H54.61 Unqualified visual loss, right eye, normal vision left eye; I25.10 Atherosclerotic heart disease of native coronary artery without angina pectoris

== ENCOUNTER 2024-08-13 15:49 | Outpatient (REF) | payer OTHER, SELFPAY ==
--- NOTE | ~2024-08-13 | MR_ITS ---
EXAMINATION: MR LUMBAR SPINE WITHOUT CONTRAST CLINICAL INFORMATION: Acute right-sided weakness, numbness. COMPARISON: None available. TECHNIQUE: MRI of the lumbar spine was obtained using routine sequences without contrast. FINDINGS: There is normal lumbar lordosis. The vertebral heights, alignment and disc heights are normal. The disc heights and disc signal is normal. The L1-2, L2-3 and L3-4 disc levels are unremarkable. The neural foramina patent bilaterally. At L4-5 disc level is a left paramidline disc herniation impinging on the exiting L5 nerve root within the thecal sac there is mild to moderate narrowing of left neural foramina. At L5-S1 disc level there is no significant disc bulge, herniation or spinal canal stenosis. The neural foramina are patent bilaterally. The bone marrow signal, intraspinal signal and paravertebral soft tissues are normal. Conus medullaris terminates at L1 and appears normal in morphology. MR/MR lumbar spine wo con IMPRESSION: Left paracentral disc herniation at the L4-5 disc level impinging on exiting L5 nerve root and effacing the left lateral recess. Electronically signed by: Anmol Godfrey MD 08/14/2024 07:31 AM EDT
--- NOTE | ~2024-08-13 | MR_ITS ---
EXAMINATION: MRI ORBITS/FACE/NECK WITHOUT AND WITH CONTRAST CLINICAL INFORMATION: Visual loss right eye. Patient also complaining of numbness in the right face, and episodic headaches. COMPARISON: None available. TECHNIQUE: MRI of the ORBITS/FACE/NECK was obtained using routine sequences without and with contrast. Intravenous contrast: Gadavist 8 mL. FINDINGS: There is no diffusion restriction. There is no intracranial hemorrhage, acute infarction, mass effect, or edema. Ventricles, sulci, and cisterns are normal in size and configuration for patient age. No shift of midline. Temporal lobes and hippocampi appear normal. There is no abnormal intra or extra-axial contrast enhancement. Midline structures appear normally formed. Partial empty sella. Posterior fossa structures appear normal. Cerebellar tonsils are appropriately located. Major flow voids are preserved within the skull base. The 5th cranial nerves appear normal in caliber and signal. Meckel's caves are normal in signal. The proximal major branches of the 5th nerves are normal in signal. The globes and orbital contents demonstrate no abnormalities. No abnormal enhancement. The optic nerves and nerve sheath complexes image normally. Normal CSF in the optic nerve sheath heads. The chiasm, prechiasmatic post chiasmatic nerves, and optic radiations appear normal. The extraconal, coronal, and intraconal structures appear normal. The inferior orbital canals appear normal. There orbital fissures and optic canals appear normal without mass or abnormal enhancement. There is a small 6 mm mucous retention cyst in the left posterior nasopharynx. Paranasal sinuses demonstrate a small mucous retention cyst in the left sphenoid sinus. Paranasal sinuses otherwise normal in signal. There is a left mastoid effusion. This does not appear to extend into the tympanic cavity. There is trace right mastoid fluid. Extracranial soft tissues demonstrate no abnormalities. No suspicious bone marrow changes are evident. MR/MR orbits face neck wo/w con IMPRESSION: 1. No abnormality of the globes, orbits, optic nerves, or chiasm. 2. Normal-appearing infraorbital canals, 5th cranial nerves, and Meckel's caves. 3. Grossly normal brain without abnormal enhancement. 4. Partially imaged sella incidentally noted. 5. Left mastoid effusion without tympanic space involvement. Electronically signed by: Pedro Hightower MD 08/14/2024 09:29 AM EDT
[2024-08-13] MEDS: gadobutroL 10 ML VIAL IVPUSH (16:53)
--- OUTSIDE RECORDS SUMMARY | 2024-08-13 17:53 | XMS_ITS | Clinical Summary ---
Author Organization [address] [place] [address] Address [address] [place] [address] Phone Care Team Providers Care Butter Liquefier Name Role Phone Pratibha Hylton MD Primary Care Provider [phone] Allergies Active Allergy Reactions Criticality Noted Date Comments Penicillin Hives 07/23/2024 Swelling in the throat Medications aspirin 81 mg EC tablet 5 Active Jardiance 25 mg tablet Take 1 tablet (25 mg total) by mouth 1 (one) time each day. for 90 days 5 Active metFORMIN (GLUCOPHAGE) 1,000 mg tablet Take 1 tablet (1,000 mg total) by mouth 2 (two) times a day. 5 Active methylPREDNISol one (MEDROL DOSPAK) 4 mg tablet TAKE DIRECTED ON PACKAGE FOR 6 DAYS WITH FOOD. 5 Active metoprolol succinate (TOPROL-XL) 25 mg 24 hr tablet Take 1 tablet (25 mg total) by mouth 1 (one) time each day. 5 Active rosuvastatin (CRESTOR) 10 mg tablet Take 1 tablet (10 mg total) by mouth at bedtime. 4 Active Brilinta 90 mg tablet Take 1 tablet (90 mg total) by mouth 2 (two) times a day. 5 Active albuterol 0.63 mg/3 mL nebulizer solution Take 3 mL (0.63 mg total) by nebulization every 6 (six) hours if needed for wheezing. Active fluticasone propionate (FLONASE) 50 mcg/actuation nasal spray Administer 1 spray into each nostril 1 (one) time each day. Shake gently. Before first use, prime pump. After use, clean tip and replace cap. 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 The disc herniation is centrally located, making it challenging to comprehend why it would exclusively impact the right side of his body and not affect the facial region. He reports numbness on the right side of his face, weakness, and a heavy sensation in his right leg. Physical examination reveals decreased sensation to light touch on the right side of his face, especially in V2 and V3, and diffuse hyporeflexia except on the right bicep which is 2+. An MRI of the brain will be ordered to further investigate the cause of his symptoms. Coordination with the bit sander will be initiated to discuss the potential need for surgical intervention and the implications for his current medication regimen. Encounters Date Type Department Care Team Description 07/27/2024 Telephone Neurosurgery [address] [address] Dolores Liu MD 07/24/2024 Telephone Neurosurgery [address] [address] Joan Bustillo MA Call from Daughter (Pt's Daughter called. She stated that Pt had been here for appointment yesterday. She stated that Pt had her bring him to ER / [facility] and wanted to let us know. 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 (Primary Dx) from Last 3 Months Surgical History Surgery Date Site/Laterality Comments CORONARY STENT PLACEMENT 06/06/2024 - 07/03/2024 LUMBAR LAMINECTOMY 05/06/1980 - 05/05/1981 NOSE SURGERY Medical History Medical History Date Comments Diabetes (CMS/HCC V24, CMS/HCC V28) Asthma Coronary artery disease NSTEMI (non-ST elevated myoc ardial infarction) ([facility] V24, [facility] V28) Hyperlipidemia Social History Tobacco Use Types Packs/Day Years Used Date Smoking Tobacco: Never Smokeless Tobacco: Never Tobacco Cessation:Counseling Given: Not Answered Sex and Gender Information Value Date Recorded Sex Assigned at Not on file Legal Sex Male 3:52 PM EDT Gender Identity Not on file Sexual Orientation Not on file Obstetrics History Plan of Treatment Health Maintenance Due Date Last Done Comments DTaP,Tdap,and Td Vaccines (1 - Tdap) 12/10/1978 Pneumococcal Vaccine: 50+ Ye ars (1 of 1 - PCV) 12/10/2009 Zoster Vaccines (1 of 2) 12/10/2009 RSV Immunization Adult Patie nts (1 - Risk 60-74 years 1-dose series) 2019 COVID-19 Vaccine (1 - 2023-2 5 season) 2024 Influenza Vaccine (#1) 2024 Cholesterol Screening (Lipid Panel) 07/17/2024 Colorectal Cancer Screening: Colonoscopy 07/17/2024 Depression Screening 07/17/2024 HIV Screening 07/17/2024 Hepatitis C Screening 07/17/2024 Social Influencers of Health Screening 07/17/2024 HIB Vaccines Aged Out No longer eligi [...] age to complete this topic Meningococcal B Vaccine Aged Out No l onger eligible based on patient's age to complete [...] on patient's age to complete this topic Procedures Procedure Name Priority Date/Time Associated Diagnosis Comments EXTERNAL MRI REPORT Routine 07/24/2024 8:[address] REPORT Routine 07/24/2024 8:16 AM EDT EXTERNAL MRI REPORT Routine 07/15/2024 8:17 AM EDT from Last 3 Months Results * External MRI Report (07/24/2024 8:18 AM EDT) Only the most recent of2 resultswithin the time period is included. Anatomical Region Laterality Modality Magnetic Resonan ce us Historical Provider MD [facility] MRI PROCEDURES Final Result * External CT Report (07/24/2024 8:16 AM EDT) Anatomical Region Laterality Modality Computed Tomogra phy us Historical Provider MD [facility] CT PROCEDURES Final R esult from Last 3 Months Care Teams Butter Liquefier Relationship Specialty Start Date End Date Pratibha Hylton MD [address] [facility] , [address] [facility] D/B/A: [facility] FIDELINA Osorio PCP - General Internal Medicine 07/17/24
== END 2024-08-13 15:50 | disposition home or self-care (01) ==
LOC: HO.MRI 15:49
PROVIDERS: PCP Internal Medicine; Visit Provider Physician Assistant Medical
DX: R53.1 Weakness (principal)
CPT/HCPCS: 70543; 72148; A9585

== ENCOUNTER → 2024-08-13 16:05 | Outpatient (BNV) | payer OTHER, SELFPAY | PROVIDERS: PCP Internal Medicine; Visit Provider Radiology Diagnostic Radiology | DX: H53.131 Sudden visual loss, right eye (principal); R20.2 Paresthesia of skin; R51.9 Headache, unspecified; G81.91 Hemiplegia, unspecified affecting right dominant side; M51.16 Intervertebral disc disorders with radiculopathy, lumbar region | CPT/HCPCS: 70543; 72148 ==

== ENCOUNTER 2024-08-14 08:37 | Outpatient (AMB) | payer OTHER, SELFPAY ==
--- OUTSIDE RECORDS SUMMARY | 2024-08-14 08:40 | XMS_ITS | Clinical Summary ---
Author Organization [address] [place] [address] Address [address] [place] [address] Phone Care Team Providers Care Cardiology Teacher Name Role Phone Pratibha Hylton MD Primary Care Provider [phone] Allergies Active Allergy Reactions Criticality Noted Date [...] cause of his symptoms. Coordination with the garden implement mechanic will be initiated to discuss the potential need for surgical intervention and the implications for his current medication regimen. Encounters Date Type Department Care Team Description 07/27/2024 Telephone [address]surgery [address] [phone] Dolores Liu MD 07/24/2024 Telephone Neurosurgery [address] [address] Joan Bustillo MA Call from Daughter (Pt's Daughter called. She stated that Pt had been here for appointment yesterday. She stated that Pt had her bring him to ER / [facility] and wanted to let us know. 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 [place]28) Hyperlipidemia Social History Tobacco Use Types [...] esult from Last 3 Months Care Teams Cardiology Teacher Relationship Specialty Start Date End Date Pratibha Hylton MD [address] [facility] , [address] [facility] Physician Associ D/B/A: [facility] FIDELINA Osorio PCP - General Internal Medicine 07/17/24
--- NOTE | 2024-08-14 08:44 | A.OFFPC_ITS ---
Vital Signs 08/14/24 08:45 Height 5 ft 3 in Weight 126 lb 6 oz BMI 22.4 BP 122/70 Blood Pressure Location Lt brachial Position Sitting Pulse 77 Pulse Source Pulse Oximeter Temp 97.1 F Temp Source Temporal Artery Scan Pulse Oximetry (%) 97 Oxygen Delivery Method Room Air Intake Visit Reasons: 2 week f/u Intake Note: Patient is here to follow up on Right side weakness, CAD. Supervisor Photoengraving Required: Yes Supervisor Photoengraving Language: Citizen Of [place] Information Interpreted: non-clinical & clinical Gas Plant Repairer: Present Accompanied by: Son Allergies Penicillins [PENICILLINS] Allergy (Unknown, Verified 08/14/24 09:08) UNKNOWN shrimp Allergy (Unknown, Verified 08/14/24 09:08) UNKNOWN Medication List - Last Reconciled 08/14/24 by Ramona Starr PA-C albuterol sulfate 90 mcg/actuation (ProAir RespiClick) 2 inhalations inhalation Q6H PRN 30 days alcohol swabs (Alcohol Pads) 1 pad topical TIDWMEAL aspirin (Adult Aspirin Regimen) 81 mg PO DAILY atorvastatin 80 mg PO BEDTIME blood sugar diagnostic (FreeStyle Lite Strips) 1 strip miscellaneous TIDWMEAL blood-glucose meter (FreeStyle Lite Meter kit) Check glucose TID before meals empagliflozin (Jardiance) 25 mg PO DAILY 90 days fluticasone propion-salmeterol 115-21 mcg/actuation (Advair HFA) 2 puffs inhalation BID 30 days insulin glargine (Lantus Solostar U-100 Insulin) 10 units (0.1 mL) subcut QPM lancets (FreeStyle Lancets) Check glucose TID before meals metformin 1,000 mg PO BID methylprednisolone PO PER PKG DIR metoprolol succinate ER 25 mg PO DAILY ticagrelor (Brilinta) 90 mg PO BID 90 days Tobacco use date assessed: 07/31/24 Dental Screening Dental Screen Date: 07/17/24 HPI 2 week f/u HPI Details History of Present Illness The patient is a 63-year-old male presenting with to discuss glucose levels associated with Type 2 Diabetes Mellitus and chronic lumbar back pain. His diabetes has been managed with a combination therapy including Lantus 10 units at night and Metformin 1000 mg twice daily, resulting in improved blood glucose levels at a recent reading of 127. With average glucose levels in the 150s. The patient mentions previously experiencing 1 episode of hypoglycemia at around 90 and has adjusted his dietary intake accordingly. Patient reports chronic back pain is utilizing a walker. At the last visit MRI was obtained of the lumbar spine. Back pain stems from chronic lumbar disc herniation identified via MRI, with nerve impingement affecting the left hand. These symptoms intensify with increased physical activity. Patient reports mild vision loss to the right eye although has been persistent since his last visit has not worsened. MRI of orbits/brain is pending at this time. Patient denies any dizziness, headaches, new weakness, new paresthesias, recent falls or any worsening symptoms at this time. Reports he is feeling okay today. His son is at bedside today. Social History - Currently using a walker for mobility. - History of recent interactions with ltiple specialists for health man agement. - No recent falls reported, urinary and bowel functions reportedly normal with a history of constipation. [facility] Medical History (Updated 08/14/24 @ 09:35 by Ramona Starr PA-C) Lumbar disc herniation with radiculopathy Cervical spinal cord compression Monocular vision loss Acute right-sided weakness Nerve compression NSTEMI (non-ST elevated myocardial infarction) CAD (coronary artery disease) Poison jorge Mild persistent asthma Diabetes mellitus Surgical History History of cardiac cath History of colonoscopy H/O angioplasty Ear anomaly S/P correction of deviated nasal septum History of lumbar laminectomy Family History Mother Asthma Father COVID-19 Social History Housing: Apartment Alcohol intake: former Patient Tobacco Use Status: Never used Tobacco Tobacco use type: Cigarette e-Cigarette/Vaping Use: Never Used Second Hand Smoke Exposure: No service: No Current occupational status: disabled Cognitive needs: No Hearing needs: No Vision needs: Yes Questionnaire Thrive Questionnaire Date Thrive assessed: 07/02/24 MAGDA-7 AMB Questionnaire MAGDA-7 Date MAGDA - 7 assessed: 07/02/24 Source: Developed by Drs. Dick Garcia, Madhuri Elder, Jozef Rutledge and colleagues, with an educational edmund from [employer]. Review of Systems Const Details: Review of Systems - Endocrine: Reports controlled diabetes. - Musculoskeletal: Reports chronic back pain Physical exam (Primary Care) Vital Signs: Last Vital Signs Temp 97.1 F 08/14/24 08:45 Pulse 77 08/14/24 08:45 BP 122/70 08/14/24 08:45 Pulse Ox 97 08/14/24 08:45 Oxygen Delivery Method Room Air 08/14/24 08:45 Care Plan Goal for BP management: <130/90 at Goal BMI result Body Mass Index 22.4 Tobacco/Smoking Status: Tobacco use Status Tobacco use date assessed 07/31/24 08/14/24 08:45 Patient Tobacco Use Status Never used Tobacco 08/14/24 08:45 Tobacco use type Cigarette 08/14/24 08:45 e-Cigarette/Vaping Use Never Used 08/14/24 08:45 normal bmi Thrive Assessment: Date of Thrive Assessment Date Thrive assessed 07/02/24 08/14/24 08:45 Const Other: Physical Exam Appearance: Alert. Oriented X3. No acute distress. Head: Normal external exam. Normocephalic. Atraumatic. Eyes: Pupils are equal, round, and reactive to light. Extraocular movements intact. Conjunctiva and sclera normal. Eyelids normal. Throat: Pharynx normal. Uvula midline. Moist mucous membranes. Neck: Normal inspection. Neck supple. Full range of motion. Cardiovascular: Normal heart rate and rhythm. Heart sound normal. No murmurs noted. Pulses normal throughout. Respiratory: No respiratory distress. Painless inspiration. Back: Full range of motion noted. Skin: Skin warm and dry. Normal skin color. Normal skin turgor. No rashes/lesions/lacerations noted. Extremities: Extremities exhibit normal range of motion. Neuro: Oriented X 3. No focal neuro deficit is noted. Patient at baseline. Patient walking with a walker with a normal steady gait. Results Reviewed Results Reviewed: Results - MRI: Lumbar disc herniation with nerve impingement Coding Level of Care Code Est Pt Level 4 (77817) Complex EM visit Add On G2211 Diagnoses Lumbar disc herniation with radiculopathy M51.16 Type 2 diabetes mellitus without complication, without long-term current use of insulin E11.9 Diabetes mellitus type: type 2 Diabetes mellitus forest fire fighters dispatcher insulin use: without mcfp use Diabetes mellitus complication status: without complication Hyperlipidemia LDL goal <70 E78.5 Assessment & Plan Assessment & Plan (1) Lumbar disc herniation with radiculopathy: Code(s): M51.16 - Intervertebral disc disorders with radiculopathy, lumbar region Category: Medical Plan: MRI confirms nerve impingement; discuss options with neurosurgeon for potential surgical intervention and conservative management. Condition is chronic and stable continue to monitor. (2) Diabetes mellitus: Code(s): E11.9 - Type 2 diabetes mellitus without complications Category: Medical Qualifiers: Diabetes mellitus type: type 2 Diabetes mellitus forest fire fighters dispatcher insulin use: without forest fire fighters dispatcher use Diabetes mellitus complication status: without complication Qualified Code(s): E11.9 - Type 2 diabetes mellitus without complications Plan: A1c level go less than 7.0. Last A1c level done on 07/31/2024 was 10.0 at this time his Lantus was increased to 10 units at bedtime. He is currently on metformin 1000 mg b.i.d. and Jardiance in his glucose level averages have been at 120 to 150s he had 1 episode of hypoglycemia of 90. Therefore will continue current regimen. Condition is chronic and stable continue to monitor and reassess A1c at next visit in 3 months. (3) Hyperlipidemia LDL goal <70: Code(s): E78.5 - Hyperlipidemia, unspecified Category: Medical Plan: LDL level goal less than 70. Patient to continue atorvastatin 80 mg at bedtime. Condition is chronic and stable continue to monitor. Plan Plan Patient was informed and verbally consented to the use of an ambient scribe for clinic note documentation during this visit. 1. Diabetes Mellitus Type 2 Continue present medications including insulin and Metformin, highlight ad justments needed due to hypoglycemia. Scheduled follow-up in November for ongoing assessment. 2. Lumbar Disc Herniation MRI confirms nerve impingement; discuss options with neurosurgeon for potential surgical intervention and conservative management. 3. Hypertension Maintain blood pressure checks along with ongoing cardiovascular evaluations. 4. Hypercholesterolemia Continuation of lipid management therapy in coordination with the patient's current cardiology reviews. 5. Back Pain Incorporate pain management strategies inline with discogenic pathology and continue observational care with neurosurgeon input. Discussion Notes I discussed the current management plan for Type 2 Diabetes Mellitus, highlighting improvements noted with current medication regimens and the necessity of dietary observance to prevent hypoglycemia. Additionally, we explored ongoing management for hypertension and hypercholesterolemia, with expectations for upcoming cardiology reviews. Back pain identified via lumbar MRI indicates herniation and nerve involvement. I recommended a surgical consultation for further exploration of treatment options, clarifying risks and benefits, especially pertinent to neurological implications voiced by the patient. I advised careful monitoring for exacerbations in back pain and instructed on conservative strategies pending the neurosurgeon?s evaluation. I ensured follow- up with specialists, provisioned for instruction on availability of medications, and emphasized proactive symptom management, setting a follow-up appointment in three months for further glucose monitoring and response review. Patient Instructions: Patient Instructions - Continue taking diabetes medications as prescribed, watch for low blood sugar signs. - Monitor blood pressure regularly and maintain current cardiac care appointments. - Follow up with the neurosurgeon for further evaluation and management of lumbar disc herniation. - Maintain scheduled appointments with the aircraft painter apprentice and report any increase in symptoms. - Seek medical attention if back pain significantly worsens or if experiencing unusual symptoms. - Return for glucose assessment and back evaluation in three months.
[2024-08-14 08:45] VITALS: BP 122/70; PULSE 77; TEMP 36.2; O2SAT 97; BMI 22.4
== END 2024-08-14 09:13 | disposition home or self-care (01) ==
LOC: HO.HMCH 08:37
PROVIDERS: PCP Internal Medicine; Visit Provider Physician Assistant Medical
DX: M51.16 Intervertebral disc disorders with radiculopathy, lumbar region (principal); E11.9 Type 2 diabetes mellitus without complications; E78.5 Hyperlipidemia, unspecified

== ENCOUNTER → 2024-08-14 08:37 | Outpatient (BNVA) | payer OTHER, SELFPAY | PROVIDERS: PCP Internal Medicine; Visit Provider Physician Assistant Medical | DX: M51.16 Intervertebral disc disorders with radiculopathy, lumbar region (principal); E11.9 Type 2 diabetes mellitus without complications; E78.5 Hyperlipidemia, unspecified | CPT/HCPCS: 99212 ==

== ENCOUNTER 2024-10-21 12:38 | Outpatient (AMB) | payer OTHER, SELFPAY ==
--- NOTE | 2024-10-21 12:48 | A.OFFVIS_ITS ---
Vital Signs 10/21/24 12:49 Height 5 ft 3 in Weight 125 lb 10.616 oz BMI 22.3 BP 120/68 Blood Pressure Location Lt brachial Position Sitting Pulse 72 Pulse Source Pulse Oximeter Intake Visit Reasons: 3 mth f/up Head Charrer Required: Yes Head Charrer Services: Head Charrer Offered & Declined Accompanied by: Daughter Allergies Penicillins (PENICILLINS) Allergy (Unknown, Verified 08/14/24 09:08) UNKNOWN shrimp Allergy (Unknown, Verified 08/14/24 09:08) UNKNOWN Medication List - Last Reconciled 10/21/24 by Owen Buck MD albuterol sulfate 90 mcg/actuation (ProAir RespiClick) 2 inhalations inhalation Q6H PRN 30 days aspirin (Adult Aspirin Regimen) 81 mg PO DAILY atorvastatin 80 mg PO BEDTIME blood sugar diagnostic (FreeStyle Lite Strips) 1 strip miscellaneous TIDWMEAL blood-glucose meter (FreeStyle Lite Meter kit) Check glucose TID before meals clopidogrel 75 mg PO DAILY empagliflozin (Jardiance) 25 mg PO DAILY 90 days fluticasone propion-salmeterol 115-21 mcg/actuation (Advair HFA) 2 puffs inhalation BID 30 days insulin glargine (Lantus Solostar U-100 Insulin) 10 units (0.1 mL) subcut QPM lancets (FreeStyle Lancets) Check glucose TID before meals metformin 1,000 mg PO BID methylprednisolone PO PER PKG DIR metoprolol succinate ER 25 mg PO DAILY HPI Comments Details: Marco returns for follow-up. He has actually referred for palpitations but he was rather complaining of chest pain. History of diabetes and dyslipidemia. EKG looked abnormal and that led to a diagnostic catheterization. Had LAD stenting. After that, he states he is not having any further chest pains. Generally feeling okay. No new concerns otherwise. [facility] Medical History (Updated 10/21/24 @ 13:16 by Owen Buck MD) Lumbar disc herniation with radiculopathy Cervical spinal cord compression Monocular vision loss Acute right-sided weakness Nerve compression NSTEMI (non-ST elevated myocardial infarction) CAD (coronary artery disease) Poison jorge Mild persistent asthma Diabetes mellitus Surgical History History of cardiac cath History of colonoscopy H/O angioplasty Ear anomaly S/P correction of deviated nasal septum History of lumbar laminectomy Family History Mother Asthma Father COVID-19 Social History Housing: Apartment Alcohol intake: former Patient Tobacco Use Status: Never used Tobacco Tobacco use type: Cigarette e-Cigarette/Vaping Use: Never Used Second Hand Smoke Exposure: No service: No Current occupational status: disabled Cognitive needs: No Hearing needs: No Vision needs: Yes Review of Systems Const Denies weakness ENT Denies dizziness Card Denies chest pain, Denies chest pain with activity, Denies syncope, Denies rapid heart rate, Denies pedal edema, Denies edema, Denies leg edema, Denies lightheadedness, Denies palpitations, Denies dyspnea, Denies dyspnea on exertion and Denies orthopnea Resp Denies cough, Denies dyspnea and Denies dyspnea on exertion GI Denies hematochezia and Denies change in stool character Musc Denies abnormal gait, Denies muscle cramps, Denies muscle weakness, Denies numbness, Denies radiating pain into limb and Denies tingling Neuro Denies abnormal gait, Denies dizziness, Denies syncope, Denies numbness, Denies tingling and Denies weakness Endo Denies palpitations Physical Exam Vital Signs: Last Vital Signs Pulse 72 10/21/24 12:49 BP 120/68 10/21/24 12:49 BMI result Body Mass Index 22.3 Const General: comfortable and no acute distress Orientation/consciousness: patient oriented x3 HEENT Other: Unremarkable Head: Yes normal to inspection Neck Neck: Yes normal visual inspection Chest Chest palpation & inspection: normal inspection of the chest Resp Auscultation: clear to auscultation bilaterally Cardio Palpation: normal PMI Heart sounds: S1 normal heart sound present, S2 normal heart sound present, no gallops, no murmurs and no rubs GI Palpation (GI): Soft to palpation Back/Spine/Pelvis Other: unremarkable Skin General skin exam: no rashes or lesions noted Neuro General: patient oriented x3 Extrem General: Yes normal to inspection Psych Mental Status: mental status grossly normal Assessment & Plan Assessment & Plan (1) Atherosclerotic cardiovascular disease: Code(s): I25.10 - Atherosclerotic heart disease of [place] coronary artery without angina pectoris Category: Medical (2) Diabetes mellitus: Code(s): E11.9 - Type 2 diabetes mellitus without complications Category: Medical Qualifiers: Diabetes mellitus type: type 2 Diabetes mellitus joint terminal attack controller insulin use: without joint terminal attack controller use Diabetes mellitus complication status: without complication Qualified Code(s): E11.9 - Type 2 diabetes mellitus without complications Plan Cardiac catheterization reviewed from June 2024. Mid LAD with 80% stenosis, status post PCI. Circumflex with minimal irregularities. Left main/RCA-normal. Continue long-term aspirin. Plavix for one year from the time of PCI. With regard to diabetes, poorly controlled. Hemoglobin A1c is 10%. Listed to be on insulin, Jardiance and metformin. With regard to dyslipidemia, on high-dose statins. LDL from [facility]-07/2024- 38 mg/dL. Triglycerides 74 mg/dL. LFTs are abnormal and they will need to be followed. Follow up in 6 months. Discussed with daughter who came for appointment. Discussion Notes I discussed with the patient the status of his coronary artery disease following the stent procedure conducted last June. We reviewed his current medication regimen, highlighting the importance of continuing aspirin indefinitely and clopidogrel for the remainder of the year to prevent restenosis. I clarified activity restrictions, affirming he is able to engage in normal activities. The patient was instructed to monitor for any recurrence of chest pain and advised to seek medical attention if symptoms reoccur. We agreed on a follow-up in six months, with interim visits as necessary should symptoms present. Patient was informed and verbally consented to the use of an ambient scribe for clinic note documentation during this visit. Patient Instructions: - Continue taking aspirin daily for life. - Continue clopidogrel once daily until June next year. - Report any chest pain or new symptoms immediately. - Engage in daily activities. - Follow up in six months unless symptoms arise sooner. Coding Level of Care Code Est Pt Level 4 (12682) Complex EM visit Add On G2211 Diagnoses Atherosclerotic cardiovascular disease I25.10 Type 2 diabetes mellitus without complication, without long-term current use of insulin E11.9 Diabetes mellitus type: type 2 Diabetes mellitus joint terminal attack controller insulin use: without long-term use Diabetes mellitus complication status: without complication
[2024-10-21 12:49] VITALS: BP 120/68; PULSE 72; BMI 22.3
--- OUTSIDE RECORDS SUMMARY | 2024-10-21 14:26 | XMS_ITS | Clinical Summary ---
Author Organization [address] [place] [address] Address [address] [place] [address] Phone Care Team Providers Care Regulatory Compliance Coordinator Name Role Phone Pratibha Hylton MD Primary Care Provider [phone] Allergies Active Allergy Reactions Criticality Noted Date [...] cause of his symptoms. Coordination with the roller coaster operator will be initiated to discuss the potential need for surgical intervention and the implications for his current medication regimen. Encounters Date Type Department Care Team Description 07/27/2024 Telephone [address]surgery [address] [phone] Dolores Liu MD 07/24/2024 Telephone Neurosurgery [address] [address] Joan Bustillo MA Call from Daughter (Pt's Daughter called. She stated that Pt had been here for appointment yesterday. She stated that Pt had her bring him to ER / [facility] and wanted to let us know. ) 07/23/2024 3:00 PM EDT Office Visit Neurosurgery [address] [address] Dolores Liu MD Herniation of intervertebral disc of cervical spine with myelopathy (Primary Dx) from Last 3 Months Surgical History Surgery Date Site/Laterality Comments CORONARY STENT PLACEMENT 06/06/2024 - 07/03/2024 LUMBAR LAMINECTOMY 05/06/1980 - 05/05/1981 NOSE SURGERY Medical History Medical History Date Comments Diabetes (CMS/HCC V24, CMS/HCC V28) Asthma Coronary artery disease NSTEMI (non-ST elevated myoc ardial infarction) ([facility]24, [facility] [place]) Hyperlipidemia Social History Tobacco Use Types [...] Vaccine (1 - 2023-2 5 season) 2024 Cholesterol Screening (Lipid Panel) 07/17/2024 Colorectal Cancer Screening: Colonoscopy 07/17/2024 Depression Screening 07/17/2024 HIV Screening 07/17/2024 Hepatitis C Screening 07/17/2024 Social Influencers of Health Screening 07/17/2024 Influenza Vaccine (Season Ended) 2025 HIB Vaccines Aged Out No longer eligi [...] CT REPORT Routine 07/24/2024 8:16 AM EDT from Last 3 Months Results * External MRI Report (07/24/2024 8:18 AM EDT) Anatomical Region Laterality Modality Magnetic Resonan ce us Historical Provider MD [facility] MRI PROCEDURES Final Result * External CT Report (07/24/2024 8:16 AM EDT) Anatomical Region Laterality Modality Computed Tomogra phy us Historical Provider MD [facility] CT PROCEDURES Final R esult from Last 3 Months Care Teams Regulatory Compliance Coordinator Relationship Specialty Start Date End Date Pratibha Hylton MD [address] [place] [address] , [address] [facility] D/B/A: [facility] FIDELINA Osorio PCP - General Internal Medicine 07/17/24
== END 2024-10-21 13:05 | disposition home or self-care (01) ==
LOC: HO.HCS 12:39
PROVIDERS: PCP Internal Medicine; Visit Provider Internal Medicine
DX: I25.10 Atherosclerotic heart disease of native coronary artery without angina pectoris (principal); E11.9 Type 2 diabetes mellitus without complications
CPT/HCPCS: 99214; G2211

== ENCOUNTER → 2024-10-21 12:38 | Outpatient (BNVA) | payer OTHER, SELFPAY | PROVIDERS: PCP Internal Medicine; Visit Provider Internal Medicine | DX: I25.10 Atherosclerotic heart disease of native coronary artery without angina pectoris (principal); I10 Essential (primary) hypertension; E11.9 Type 2 diabetes mellitus without complications | CPT/HCPCS: 99212 ==

== ENCOUNTER 2024-11-11 13:41 | Outpatient (AMB) | payer OTHER, SELFPAY ==
--- NOTE | 2024-11-11 13:43 | MHC.PC.OV ---
Vital Signs 11/11/24 13:46 Height 5 ft 3 in Weight 131 lb BMI 23.2 BP 120/60 Blood Pressure Location Lt brachial Position Sitting Intake Visit Reasons: Follow Up Intake Note: Patient here for a follow up DM Leadership Program Associate Required: No Accompanied by: Daughter Allergies Penicillins (PENICILLINS) Allergy (Unknown, Verified 11/11/24 13:45) UNKNOWN shrimp Allergy (Unknown, Verified 11/11/24 13:45) UNKNOWN Tobacco use date assessed: 07/31/24 Fall risk assessment: No Falls in past year Last assessed Fall Risk: 11/11/24 Dental Screening Dental Screen Date: 11/11/24 Did you have a dental visit in the last 12 months?: Yes Did you have a dental problem in the last 6 months where you did not have access to dental care?: No Was dental information given to patient?: Patient has dentist HPI HPI Comments History of Present Illness Details This is a 63-year-old male with diabetes mellitus type 2, history of non-STEMI in June of this year, hyperlipidemia and cervical spinal cord compression that comes today for follow-up on his conditions. A1c within goal. Lipid panel will be order and his LDL goal should be less than 70. Has neck pain due to cord compression and will have surgery after June because he needs to wait a year due to stented coronary artery secondary to non-STEMI. He denies any chest pain or shortness on breath. Has elevated total protein that will be repeated. Has transaminitis and denies any jaundice this will also be repeated. Has elevated calcium and ionized calcium was ordered. Parathyroid was within normal limits. [facility] Medical History (Updated 11/11/24 @ 14:10 by Pratibha Hylton MD) Lumbar disc herniation with radiculopathy Cervical spinal cord compression Monocular vision loss Acute right-sided weakness Nerve compression NSTEMI (non-ST elevated myocardial infarction) CAD (coronary artery disease) Poison jorge Mild persistent asthma Diabetes mellitus Surgical History History of cardiac cath History of colonoscopy H/O angioplasty Ear anomaly S/P correction of deviated nasal septum History of lumbar laminectomy Family History Mother Asthma Father COVID-19 Social History Housing: Apartment Alcohol intake: former Patient Tobacco Use Status: Never used Tobacco e-Cigarette/Vaping Use: Never Used Second Hand Smoke Exposure: No service: No Current occupational status: disabled Cognitive needs: No Hearing needs: No Vision needs: Yes Questionnaire PHQ-9 Over the last 2 weeks, how often have you been bothered by any of the following problems? 1. Little interest or pleasure in doing things: not at all 2. Feeling down, depressed, or hopeless: not at all 3. Trouble falling or staying asleep, or sleeping too much: several days 4. Feeling tired or having little energy: more than half the days 5. Poor appetite or overeating: more than half the days 6. Feeling bad about yourself - or that you are a failure or have let yourself or your family down: not at all 7. Trouble concentrating on things, such as reading the newspaper or watching television: several days 8. Moving or speaking so slowly that other people could have noticed. Or the opposite - being so fidgety or restless that you have been moving around a lot more than usual: more than half the days 9. Thoughts that you would be better off or of hurting yourself in some way: not at all Total score: 8 Depression Screening Interpretation: Positive Depression Screening Done: Yes Source: Developed by Drs. Dick Garcia, Madhuri Elder, Jozef Rutledge and colleagues, with an educational edmund from [employer]. Thrive Questionnaire Date Thrive assessed: 11/11/24 I am a: Patient What is your living situation today?: I choose not to answer this question Within the past 12 months, did the food you bought not last and you didn't have the money to get more?: I choose not to answer this question Within the past 12 months, did you worry whether your food would run out before you got money to buy more?: I choose not to answer this question Do you have trouble paying for medicines?: I choose not to answer this question Do you have trouble getting transportation to medical appointments?: I choose not to answer this question Do you have trouble paying your heating and electricity bill?: I choose not to answer this question Do you have trouble taking care of your child, family member or friend?: I choose not to answer this question Do you have trouble with day-to-day activities such as bathing, preparing meals, shopping, managing finances, etc.?: I choose not to answer this question Are you currently unemployed and looking for a job?: I choose not to answer this question Are you interested in more education?: I choose not to answer this question Please select the resources that you would like help with: None Currently or been in a relationship where the following occur: I choose not to answer THRIVE Score: 0 AUDIT C Alcohol Use Questionnaire (AUDIT-C) 1. How often do you have a drink containing alcohol?: Never Total Score: 0 MAGDA-7 AMB Questionnaire MAGDA-7 Date MAGDA - 7 assessed: 11/11/24 Feeling nervous, anxious, or on edge: 0 = Not at all Not being able to stop or control worryin = Not at all Worrying too much about different things: 1 = Several days Trouble relaxin = Several days Being so restless that it is hard to sit still: 0 = Not at all Becoming easily annoyed or irritable: 1 = Several days Feeling afraid as if something awful might happen: 0 = Not at all Total MAGDA-7 score (0-4 normal; 5-9 mild; 10-14 moderate; 15-21 severe): 3 Source: Developed by Drs. Dick Garcia, Madhuri Elder, Jozef Rutledge and colleagues, with an educational edmund from [employer]. Review of Systems Const All systems reviewed & are unremarkable except as noted in HPI and below Card Denies chest pain at rest, Denies chest pain with activity, Denies edema, Denies irregular heart rhythm, Denies claudication, Denies dyspnea, Denies dyspnea on exertion, Denies orthopnea, Denies paroxysmal nocturnal dyspnea and Denies slow heart rate Resp Denies cough, Denies dyspnea and Denies dyspnea on exertion GI Denies abdominal pain, Denies change in bowel habits, Denies excessive flatus, Denies nausea and Denies vomiting Denies urinary hesitancy, Denies urinary incontinence and Denies urinary urgency Physical exam (Primary Care) Tobacco/Smoking Status: Tobacco use Status Tobacco use date assessed 07/31/24 08/14/24 08:45 Patient Tobacco Use Status Never used Tobacco 08/14/24 08:45 Tobacco use type Cigarette 08/14/24 08:45 e-Cigarette/Vaping Use Never Used 08/14/24 08:45 Depression Screening Interpretation: Positive Thrive Assessment: Date of Thrive Assessment Date Thrive assessed 07/02/24 08/14/24 08:45 Currently or been in a relationship where the following occur: I choose not to answer Resp Effort & Inspection: normal respiratory effort Auscultation: clear to auscultation bilaterally Cardio Jugular venous distension: no JVD Rate: regular rate Rhythm: regular rhythm Heart sounds: S1 normal heart sound present and S2 normal heart sound present Extrem General: Yes full ROM Results AMB Hemoglobin A1c AMB Hemoglobin A1c 5.8 % Last Edit by AMANDA Narayanan on 11/11/24 14:00 Coding Level of Care Code Est Pt Level 4 (33447) Complex EM visit Add On G2211 Diagnoses NSTEMI (non-ST elevated myocardial infarction) I21.4 Hyperlipidemia LDL goal <70 E78.5 Type 2 diabetes mellitus without complication, without long-term current use of insulin E11.9 Diabetes mellitus type: type 2 Diabetes mellitus bead wrapper insulin use: without jail use Diabetes mellitus complication status: without complication Elevated total protein R77.8 Cervical spinal cord compression G95.20 Time Spent (min) 22 Assessment & Plan Assessment & Plan (1) NSTEMI (non-ST elevated myocardial infarction): Code(s): I21.4 - Non-ST elevation (NSTEMI) myocardial infarction Category: Medical (2) Hyperlipidemia LDL goal <70: Code(s): E78.5 - Hyperlipidemia, unspecified Category: Medical (3) Diabetes mellitus: Code(s): E11.9 - Type 2 diabetes mellitus without complications Category: Medical Qualifiers: Diabetes mellitus type: type 2 Diabetes mellitus jail insulin use: without jail use Diabetes mellitus complication status: without complication Qualified Code(s): E11.9 - Type 2 diabetes mellitus without complications (4) Elevated total protein: Code(s): R77.8 - Other specified abnormalities of plasma proteins Category: Medical (5) Cervical spinal cord compression: Code(s): G95.20 - Unspecified cord compression Category: Medical Plan A1c goal is equal or less than 7%. Blood pressure goal is equal or less than 130/80. LDL goal is less than 70. Complete 1 year of Plavix after sent coronary artery. Have surgical repair of spinal cord compression after June 2025. Orders: Orders AMB Hemoglobin A1c Today E11.9 - Type 2 diabetes mellitus without complications Lipid Panel Today E78.5 - Hyperlipidemia, unspecified Microalbumin, Random (w Creat) Today R80.9 - Proteinuria, unspecified Vitamin D 25-OH Total Today E55.9 - Vitamin D deficiency, unspecified Protein Electrophoresis, Serum Today R77.8 - Other specified abnormalities of plasma proteins Calcium, Ionized Today E83.52 - Hypercalcemia Medications: New cholecalciferol (vitamin D3) 25 mcg PO DAILY 90 caps 1RF 90 days
[2024-11-11 13:46] VITALS: BP 120/60; BMI 23.2
--- OUTSIDE RECORDS SUMMARY | 2024-11-11 14:30 | XMS_ITS | Clinical Summary ---
Author Organization [address] [place] [address] Address [address] [place] [address] Phone Care Team Providers Care Reed Repairer Name Role Phone Pratibha Hylton MD Primary Care Provider [phone] Allergies Active Allergy Reactions Criticality Noted Date [...] cause of his symptoms. Coordination with the associate dentist will be initiated to discuss the potential need for surgical intervention and the implications for his current medication regimen. Surgical History Surgery Date Site/Laterality Comments CORONARY STENT PLACEMENT 06/06/2024 - 07/03/2024 LUMBAR LAMINECTOMY 05/06/1980 - 05/05/1981 NOSE SURGERY Medical History Medical History Date Comments Diabetes ([facility]24, [facility] V28) Asthma Coronary artery disease NSTEMI (non-ST elevated myoc ardial infarction) ([facility] V24, [facility] V28) Hyperlipidemia Social History Tobacco Use Types [...] 60-74 years 1-dose series) 2019 COVID-19 Vaccine ( - 2023-2 5 season) 2024 Cholesterol Screening (Lipid Panel) 07/17/2024 Colorectal Cancer Screening: Colonoscopy 07/17/2024 Depression Screening 07/17/2024 HIV Screening 07/17/2024 Hepatitis C Screening 07/17/2024 Social Influencers of Health Screening 07/17/2024 Influenza Vaccine (#1) 2025 HIB Vaccines Aged Out No longer [...] on patient's age to complete this topic Care Teams Reed Repairer Relationship Specialty Start Date End Date Pratibha Hylton MD [address] [place] [address] , [address] Physician Associ D/B/A: [facility] FIDELINA Osorio PCP - General Internal Medicine 07/17/24
== END 2024-11-11 14:08 | disposition home or self-care (01) ==
LOC: HO.HMCH 13:42
PROVIDERS: PCP Internal Medicine; Visit Provider Internal Medicine
DX: E11.69 Type 2 diabetes mellitus with other specified complication (principal); I25.2 Old myocardial infarction; G95.20 Unspecified cord compression; E78.5 Hyperlipidemia, unspecified; R77.8 Other specified abnormalities of plasma proteins

== ENCOUNTER → 2024-11-11 13:41 | Outpatient (BNVA) | payer OTHER, SELFPAY | PROVIDERS: PCP Internal Medicine; Visit Provider Internal Medicine | DX: E11.9 Type 2 diabetes mellitus without complications (principal); I21.4 Non-ST elevation (NSTEMI) myocardial infarction; E78.5 Hyperlipidemia, unspecified; R77.8 Other specified abnormalities of plasma proteins; R80.9 Proteinuria, unspecified; G95.20 Unspecified cord compression; E55.9 Vitamin D deficiency, unspecified; E83.52 Hypercalcemia | CPT/HCPCS: 83036; 99212 ==

== ENCOUNTER 2025-02-15 14:24 | Outpatient (AMB) | payer MEDICAID, SELFPAY ==
--- OUTSIDE RECORDS SUMMARY | 2025-02-15 14:27 | XMS_ITS | Clinical Summary ---
Author Organization [address] [place] [address] Address [address] [place] [address] Phone Care Team Providers Care Chemistry Instructor Name Role Phone Pratibha Hylton MD Primary Care Provider [phone] Allergies Active Allergy Reactions Criticality Noted Date [...] cause of his symptoms. Coordination with the director of digital marketing will be initiated to discuss the potential need for surgical intervention and the implications for his current medication regimen. Surgical History Surgery Date Site/Laterality Comments CORONARY STENT PLACEMENT 06/06/2024 - 07/03/2024 LUMBAR LAMINECTOMY 05/06/1980 - 05/05/1981 NOSE SURGERY Medical History Medical History Date Comments Diabetes ([facility]24, [facility] V28) Asthma Coronary artery disease NSTEMI (non-ST elevated myoc ardial infarction) ([facility] V24, [facility] V28) Hyperlipidemia Social History Tobacco Use Types Packs/Day Years Used Date Smoking Tobacco: Never Smokeless Tobacco: Never Tobacco Cessation:Counseling Given: Not Answered Sex and Gender Information Value Date Recorded Sex Assigned at Not on file Legal Sex Male 3:52 PM EDT Gender Identity Not on file Sexual Orientation Not on file Obstetrics History Plan of Treatment Health Maintenance Due Date Last Done Comments Colorectal Cancer Screening: Colonoscopy 1959 DTaP,Tdap,and Td Vaccines (1 - Tdap) 12/10/1978 Pneumococcal Vaccine: 50+ Ye ars (1 of 1 - PCV) 12/10/2009 Zoster Vaccines (1 of 2) 12/10/2009 RSV Immunization Adult Patie nts (1 - Risk 60-74 years 1-dose series) 2019 Depression Screening 05/06/2024 Cholesterol Screening (Lipid Panel) 07/17/2024 Hepatitis C Screening 07/17/2024 Social Influencers of Health Screening 07/17/2024 Falls Risk Assessment 12/10/2024 COVID-19 Vaccine (2023-2 5 season) 2025 Influenza Vaccine (#1) 2025 HIB Vaccines Aged [...] age to complete this topic Care Teams Chemistry Instructor Relationship Specialty Start Date End Date Pratibha Hylton MD [address] [place] [address] , [address] Physician Associ D/B/A: [facility] FIDELINA Osorio PCP - General Internal Medicine 07/17/24
--- NOTE | 2025-02-15 14:37 | A.OFFPC_ITS ---
Vital Signs 02/15/25 14:38 Height 5 ft 3 in Weight 132 lb 6 oz BMI 23.4 BP 108/52 L Blood Pressure Location Lt brachial Position Sitting Respiration 18 Pulse 71 Pulse Source Pulse Oximeter Temp 97.1 F Temp Source Temporal Artery Scan Pulse Oximetry (%) 94 Oxygen Delivery Method Room Air Intake Visit Reasons: Annual Exam Manager Risk Management Required: No Accompanied by: Self / Same As Patient Allergies Penicillins (PENICILLINS) Allergy (Unknown, Verified 02/15/25 15:00) UNKNOWN shrimp Allergy (Unknown, Verified 02/15/25 15:00) UNKNOWN Medication List - Last Reconciled 02/15/25 by Pratibha Hylton MD albuterol sulfate 90 mcg/actuation (ProAir RespiClick) 2 inhalations inhalation Q6H PRN 30 days amitriptyline 25 mg PO BEDTIME 30 days aspirin (Adult Aspirin Regimen) 81 mg PO DAILY atorvastatin 80 mg PO BEDTIME blood sugar diagnostic (FreeStyle Lite Strips) 1 strip miscellaneous TIDWMEAL blood-glucose meter (FreeStyle Lite Meter kit) Check glucose TID before meals cholecalciferol (vitamin D3) 25 mcg PO DAILY 90 days clopidogrel 75 mg PO DAILY empagliflozin (Jardiance) 25 mg PO DAILY 90 days fluticasone propion-salmeterol 115-21 mcg/actuation (Advair HFA) 2 puffs inhalation BID 30 days insulin glargine (Lantus Solostar U-100 Insulin) 10 units (0.1 mL) subcut QPM lancets (FreeStyle Lancets) Check glucose TID before meals meclizine 25 mg PO Q12H PRN metformin 1,000 mg PO BID metoprolol succinate ER 25 mg PO DAILY Tobacco use date assessed: 02/15/25 Fall risk assessment: No Falls in past year Last assessed Fall Risk: 02/15/25 Dental Screening Dental Screen Date: 02/15/25 Did you have a dental visit in the last 12 months?: No Did you have a dental problem in the last 6 months where you did not have access to dental care?: No Was dental information given to patient?: No HPI HPI Comments History of Present Illness Details The patient is a 64-year-old male presenting for physical exam. The patient has a history of diabetes mellitus, with the last recorded HbA1c being 10% in July, indicating poor glycemic control and now 7.6%. He is currently on a regimen including amitriptyline, aspirin, atorvastatin, vitamin D, Plavix, Jardiance, Advair, and Lantus. The patient also has hyperlipidemia and hypertension, managed with atorvastatin and other medications. He underwent a cardiac catheterization in June and has a history of coronary artery disease. Preventative care measures discussed include the need for pneumonia and tetanus vaccinations. The patient has a history of receiving a pneumonia vaccine over ten years ago and requires an updated PCV20 vaccine. The tetanus vaccine is also due, as it is administered every ten years. [facility] Medical History Lumbar disc herniation with radiculopathy Cervical spinal cord compression Monocular vision loss Acute right-sided weakness Nerve compression NSTEMI (non-ST elevated myocardial infarction) CAD (coronary artery disease) Poison jorge Mild persistent asthma Diabetes mellitus Surgical History History of cardiac cath History of colonoscopy H/O angioplasty Ear anomaly S/P correction of deviated nasal septum History of lumbar laminectomy Family History Mother Asthma Father COVID-19 Social History Housing: Apartment Alcohol intake: former Patient Tobacco Use Status: Never used Tobacco e-Cigarette/Vaping Use: Never Used Second Hand Smoke Exposure: No service: No Current occupational status: disabled Cognitive needs: No Hearing needs: No Vision needs: Yes Questionnaire Thrive Questionnaire Date Thrive assessed: 11/11/24 I am a: Patient What is your living situation today?: I choose not to answer this question Within the past 12 months, did the food you bought not last and you didn't have the money to get more?: I choose not to answer this question Within the past 12 months, did you worry whether your food would run out before you got money to buy more?: I choose not to answer this question Do you have trouble paying for medicines?: I choose not to answer this question Do you have trouble getting transportation to medical appointments?: I choose n ot to answer this question Do you have trouble paying your heating and electricity bill?: I choose not to answer this question Do you have trouble taking care of your child, family member or friend?: I choose not to answer this question Do you have trouble with day-to-day activities such as bathing, preparing meals, shopping, managing finances, etc.?: I choose not to answer this question Are you currently unemployed and looking for a job?: I choose not to answer this question Are you interested in more education?: I choose not to answer this question Please select the resources that you would like help with: None Currently or been in a relationship where the following occur: I choose not to answer THRIVE Score: 0 MAGDA-7 AMB Questionnaire MAGDA-7 Date MAGDA - 7 assessed: 11/11/24 Source: Developed by Drs. Dick Garcia, Madhuri Elder, Jozef Rutledge and colleagues, with an educational edmund from [employer]. Review of Systems Const All systems reviewed & are unremarkable except as noted in HPI and below Card Denies chest pain at rest, Denies chest pain with activity, Denies edema, Denies irregular heart rhythm, Denies claudication, Denies dyspnea, Denies dyspnea on exertion, Denies orthopnea, Denies paroxysmal nocturnal dyspnea and Denies slow heart rate Resp Denies cough, Denies dyspnea and Denies dyspnea on exertion GI Denies abdominal pain, Denies change in bowel habits, Denies excessive flatus, Denies nausea and Denies vomiting Denies urinary hesitancy, Denies urinary incontinence and Denies urinary urgency Physical exam (Primary Care) Vital Signs: Last Vital Signs Temp 97.1 F 02/15/25 14:38 Pulse 71 02/15/25 14:38 Resp 18 02/15/25 14:38 BP 108/52 L 02/15/25 14:38 Pulse Ox 94 02/15/25 14:38 Oxygen Delivery Method Room Air 02/15/25 14:38 BMI result Body Mass Index 23.4 Tobacco/Smoking Status: Tobacco use Status Tobacco use date assessed 02/15/25 02/15/25 14:57 Patient Tobacco Use Status Never used Tobacco 02/15/25 14:40 Tobacco use type 11/11/24 14:53 e-Cigarette/Vaping Use Never Used 02/15/25 14:40 Thrive Assessment: Date of Thrive Assessment Date Thrive assessed 11/11/24 02/15/25 14:40 Currently or been in a relationship where the following occur: I choose not to answer HENMT Head: Yes normal to inspection, Yes normocephalic and Yes atraumatic Ears: external ears normal Eyes General: appearance normal, both eyes and all related structures Eyelids: Yes eyelids normal Conjunctivae: conjunctivae normal Neck Neck: Yes normal visual inspection and Yes supple Resp Effort & Inspection: normal respiratory effort Auscultation: clear to auscultation bilaterally Cardio Jugular venous distension: no JVD Rate: regular rate Rhythm: regular rhythm Heart sounds: S1 normal heart sound present and S2 normal heart sound present GI Inspection: Yes normal to inspection Palpation (GI): Soft to palpation and nontender Auscultation: normal bowel sounds Skin General skin exam: no rashes or lesions noted Neuro General: no focal motor deficits Extrem General: Yes full ROM Psych Appearance: grossly normal Results AMB Hemoglobin A1c AMB Hemoglobin A1c 7.6 % Last Edit by Lay Thompson CMA on 02/15/25 15 :16 Immunizations pneumoc 20-carito conj-dip cr(PF) 0.5 mL IM syringe Performing Provider: Pratibha Hylton MD Per[facility] [place] [facility] Administered by: AMANDA Dick on 02/15/25 15:19 Dose Route Admin Location Dispensed Lot Number Expiration Date [facility] Store [employer] 0.5 mL IM Left Deltoid 0.5 mL [id number] 01/04/26 2303-1965-29 [employer] Total Dispensed Waste 0.5 mL 0 % VIS Given Date VIS Provided VIS Publication Date 02/15/25 Single Vaccine 24 Eligibility Eligibility Date Funding Source Not [facility] [place] Eligible 02/15/25 Private Results Reviewed Results Reviewed: Laboratory Last Values Hgb A1c (Clinic) 7.6 % (4.0-6.0) H 02/15/25 15:06 Coding Level of Care Code Est Pt Level 3 (75692) Est Pt Prev Care >65y(44922) Diagnoses Physical exam Z00.00 Type 2 diabetes mellitus without complication, without long-term current use of insulin E11.9 Diabetes mellitus type: type 2 Diabetes mellitus long term care pharmacist insulin use: without custodial use Diabetes mellitus complication status: without complication Time Spent (min) 33 Assessment & Plan Assessment & Plan (1) Physical exam: Code(s): Z00.00 - Encounter for general adult medical examination without abnormal findings Category: Medical (2) Diabetes mellitus: Code(s): E11.9 - Type 2 diabetes mellitus without complications Category: Medical Qualifiers: Diabetes mellitus type: type 2 Diabetes mellitus custodial insulin use: without custodial use Diabetes mellitus complication status: without complication Qualified Code(s): E11.9 - Type 2 diabetes mellitus without complications Plan Plan Patient was informed and verbally consented to the use of an ambient scribe for clinic note documentation during this visit. 1. Physical exam The patient is due for a pneumonia vaccination with PCV20, as the last vaccination was over ten years ago. The patient is due for a tetanus vaccination, which is administered every ten years. Colonoscopy done last year. 2. Diabetes Mellitus The patient has diabetes mellitus with a recent HbA1c of 10%, indicating poor glycemic control. The management plan includes continuing current medications such as Jardiance and Lantus, and considering referral to endocrinology for further management. Orders: Orders Microalbumin, Random (w Creat) Today R80.9 - Proteinuria, unspecified Pneumococcal 20 Immunization Today Z23 - Encounter for immunization Lipid Panel Today E78.5 - Hyperlipidemia, unspecified Comprehensive [place]. Panel Fast Today E11.9 - Type 2 diabetes mellitus without complications AMB Hemoglobin A1c Today Z13.9 - Encounter for screening, unspecified Referrals Endocrinology Referral E11.9 - Type 2 diabetes mellitus without complications
[2025-02-15 14:38] VITALS: BP 108/52; PULSE 71; RESP 18; TEMP 36.2; O2SAT 94; BMI 23.4
== END 2025-02-15 15:24 | disposition home or self-care (01) ==
LOC: HO.HMCH 14:25
PROVIDERS: PCP Internal Medicine; Visit Provider Internal Medicine
DX: Z00.00 Encounter for general adult medical examination without abnormal findings (principal); E11.9 Type 2 diabetes mellitus without complications; Z23 Encounter for immunization

== ENCOUNTER → 2025-02-15 14:24 | Outpatient (BNVA) | payer MEDICAID, SELFPAY | PROVIDERS: PCP Internal Medicine; Visit Provider Internal Medicine | DX: Z00.00 Encounter for general adult medical examination without abnormal findings (principal); Z23 Encounter for immunization; E11.9 Type 2 diabetes mellitus without complications; E78.5 Hyperlipidemia, unspecified; I10 Essential (primary) hypertension; I25.10 Atherosclerotic heart disease of native coronary artery without angina pectoris; Z79.02 Long term (current) use of antithrombotics/antiplatelets; Z79.4 Long term (current) use of insulin; Z79.82 Long term (current) use of aspirin; Z79.84 Long term (current) use of oral hypoglycemic drugs; Z79.899 Other long term (current) drug therapy | CPT/HCPCS: 83036; 90471; 90677; 99212; 99397 ==